=== PATIENT | female | born 1945 | race Caucasian/White ===

== ENCOUNTER 2020-08-31 19:52 | Emergency (ER) | payer MEDICARE, SELFPAY ==
[2020-08-31 20:21] VITALS: BP 157/97; PULSE 95; RESP 17; TEMP 36.8; O2SAT 98; BMI 21.6
--- NOTE | 2020-08-31 20:43 | XR_ITS ---
WS: [id number] Right shoulder, 3 views, 08/31/2020 Clinical Data: fall Comparison: None. Findings: No fractures or dislocations are seen. The AC joint is normal. The adjacent right clavicle, right sca pula and ribs are normal. The soft tissues are unremarkable. XR/XR shoulder RT min 2V* [id number] Impression: Negative right shoulder.
--- NOTE | 2020-08-31 20:43 | XR_ITS ---
WS: [id number] Right knee, 3 views, 08/31/2020 Clinical Data: fall Comparison: None. Findings: No fractures or dislocations are seen. There is narrowing of the lateral joint compartment with later al subluxation of the tibia relative to the femur. The patella is intact. The soft tissues are unrema rkable. XR/XR knee RT 3V* [id number] Impression: Osteoarthritis with narrowing and subluxation of the lateral joint compartment.
--- NOTE | 2020-08-31 21:20 | ED_ITS ---
HPI - Extremity Problem General: Chief complaint: Extremity Injury, Lower Stated complaint: FALL - INJURY TO RLE Time Seen by Provider: 08/31/20 21:18 History of Present Illness: HPI Narrative: Patient is a 74-year-old female comes to the ED with right knee and shoulder pain after fall. Patient says she was walking outside and her foot got caught between the storm door causing her to to fall. Patient says she went down and hit her right knee to the ground. She is also complaining of having some very mild right shoulder pain. She says her right knee is a little swollen and bearing weight causes some pain. Denies any head trauma or loss of consciousness. Associated symptoms: Deny chest pain, fever(s) or rash Review of Systems Const: Denies: fever(s), chills or fatigue Eyes: Denies: change in vision or eye discomfort ENMT: Denies: throat pain, odynophagia, nasal discharge or nasal congestion Card: Denies: chest pain, palpitations, edema, swelling of feet/ankles, dyspnea on exertion or orthopnea Resp: Denies: dyspnea, productive cough or non-productive cough GI: Denies: abdominal pain, nausea, vomiting, diarrhea, constipation or hematochezia : Denies: flank pain, dysuria or hematuria Musc: Reports: extremity pain (right knee) and extremity swelling (right knee); Denies: neck pain or back pain Skin/Breast: Denies: rash or new lesions Neuro: Denies: headache(s), numbness in extremities or weakness in extremities Physical Exam Const: COMMON NORMALS: no acute distress, patient oriented x3 and alert GENERAL APPEARANCE: cooperative and comfortable HENMT: COMMON NORMALS: normocephalic HEAD & SCALP: normocephalic MOUTH: Normal oral and palatal mucosa present THROAT: posterior oropharynx normal an d uvula midline Eye: COMMON NORMALS: Equal, round and reactive pupils present PUPIL: Yes Equal, round and reactive pupils present Neck/C-Spine: COMMON NORMALS: supple Resp: COMMON NORMALS: normal respiratory effort, No retractions, No use of accessory muscles and clear to auscultation bilaterally AUSCULTATION: clear to auscultation bilaterally Cardio: COMMON NORMALS: regular rate, regular rhythm, S1 normal heart sound present, S2 normal heart sound present, No gallops present (Cardio), No clicks present (Cardio), No murmurs present (Cardio) and Peripheral pulses 2+ throughout RATE: regular rate RHYTHM: regular rhythm HEART SOUNDS: S1 normal heart sound present and S2 normal heart sound present PERIPHERAL PULSES: Peripheral pulses 2+ throughout GI: COMMON NORMALS: Normal to inspection, nondistended, normoactive bowel sounds present, Soft to palpation, non-tender and no masses PALPATION: Yes Soft to palpation : COMMON NORMALS: Yes no CVA tenderness BLADDER/KIDNEY EXAM: Yes no CVA tenderness Back/Pelvis: COMMON NORMALS: no CVA tenderness Extremity: NARRATIVE EXTREMITY EXAM: Right knee-Patient has some mild edema on right knee. No ecchymosis or deformity seen. Right knee is nontender to palpation. Neurovascular intact and range of motion full. Right shoulder?no visible deformity or edema or ecchymosis seen. Right shoulder was not tender to palpation. Neurovascular tact distally. Range of motion full. Neuro: COMMON NORMALS: patient oriented x3 and moves all extremities SENSORIUM/ORIENTATION: Yes alert Skin: COMMON NORMALS: no rashes or lesions noted GENERAL SKIN EXAM: no rashes or lesions noted and dry skin Course Vital Signs: Vital signs: Vital Signs Temperature 98.2 F 08/31/20 20:21 Pulse Rate 88 08/31/20 22:05 Respiratory Rate 22 H 08/31/20 22:05 Blood Pressure 148/91 08/31/20 22:05 Pulse Oximetry 97 08/31/20 22:05 MDM - Extremity (Nontraumatic) MDM Narrative: Medical decision making narrative: Patient is a 74-year-old female comes to the ED with right shoulder and right knee pain after fall. Denies any head trauma or loss of consciousness. Most of patient's pain is on the right knee and she has swelling but no ecchymosis or deformity seen. Right shoulder is normal and no tenderness upon palpation. X-ray of right knee show no acute fractures or findings and right shoulder x-ray showed no acute fracture or findings. Patient was discharged and offered crutches but she refused them. Rest, ice and elevate right leg. Take ibuprofen for pain. Return to ED precautions given. Follow-up with PCP in 7 to 10 days. Patient understood and agree with plan. Imaging Data^: Xray Ortho: Attestation: I personally reviewed and interpreted this imaging study as follows: My impression: Right shoulder x-ray?no acute fractures or findings. Right knee x-ray?no acute fractures or findings. Discharge Plan Discharge Patient Disposition: Home Clinical Impression: Contusion Qualifiers: Encounter type: initial encounter Contusion area: knee Laterality: right Qualified Code(s): S80.01XA - Contusion of right knee, initial encounter Condition: Stable Discharge Orders: Discharge Order (Routine); Ordered 08/31/20 Ordered By: Geovanny Carias Referrals: Hossein Beach Jr, MD [Primary Care Provider] - Discharge Diet: Regular Discharge Activity: Increase activity as tolerated and Limit activity as instructed Patient Instructions: Contusion, Knee Pain (ED) Activity Restrictions/Additional Instructions: Follow-up with medical provider as directed in 7 to 10 days. Rest, ice and elevate right leg. Limit weightbearing for the next 2 days then advance as tolerated. Take ibuprofen or Tylenol for pain. Return to the ER or your medical provider if condition worsens. Please read and understand discharge instructions. If any questions, please ask. Discharge Date/Time: 08/31/20 22:21 Coding Level of Care Code ED Information Technology Data Analyst for [employer] Fwd Exam Comprehensive
[2020-08-31 22:05] VITALS: BP 148/91; PULSE 88; RESP 22; O2SAT 97
== END 2020-08-31 22:21 | disposition home or self-care (01) ==
PROVIDERS: Emergency Provider Physician Assistant; Family Provider Family Medicine; PCP Family Medicine
DX: S80.01XA Contusion of right knee, initial encounter (principal); W01.0XXA Fall on same level from slipping, tripping and stumbling without subsequent striking against object, initial encounter
CPT/HCPCS: 12345; 73030; 73562; 99281; 99283

== ENCOUNTER 2020-09-14 11:08 | Emergency (ER) | payer MEDICARE, SELFPAY ==
[2020-09-14] VITALS (13 sets, daily range): BP systolic 74–150; BP diastolic 49–122; PULSE 102–132; RESP 15–34; TEMP 36.3; O2SAT 80–99; BMI 24.9
--- NOTE | 2020-09-14 11:09 | CT_ITS ---
WS: [id number] CT HEAD NONCONTRAST HISTORY: Syncope and collapse. Loss of consciousness. TECHNIQUE: Contiguous axial imaging performed through the brain in 2.5 mm imaging. Bone and soft tiss ue windows. Sagittal and coronal reformats reviewed. All CT scans at [facility] use at le ast one of these dose optimization techniques: automated exposure control; mA and/or kV adjustment pe r patient size (includes targeted exams where dose is matched to clinical indication); or iterative r econstruction. DLP: 966.04 mGy-cm. COMPARISON: 09/11/2016 No acute intracranial hemorrhage, midline shift or mass effect. Very mild atrophy and chronic ischemic changes in the white matter. No prior infarct or loss of the g ray-white matter differentiation. Ventricles: Normal size with no hydrocephalus. There is extensive calcification in the intracranial carotid arteries and also the vertebral arteries . Paranasal sinuses: As visualized are clear. Mastoid air cells: Well pneumatized. Calvarium and scalp: Skull is intact with no soft tissue edema or swelling. CT/CT head wo con* [id number] IMPRESSION: 1. No acute intracranial hemorrhage or edema. 2. Mild atrophy and chronic ischemic disease. Notified Jermaine Clemons MD MSM at 09/14/2020 11:31 AM.
--- NOTE | 2020-09-14 11:23 | XR_ITS ---
WS: [id number] Exam: XR chest 1V portable [id number] Date/Time of Exam: 09/14/2020 11:27 AM Reason For Exam: syncope Comparison 08/09/2017. The lungs are fully expanded. A rounded soft tissue density is seen in the region of the left lower l obe that may represent infiltrate, atelectasis or a pulmonary nodule. The right lung is clear. Mild cardiac enlargement. No pleural effusions. The mediastinum and bony thorax are unremarkable. Recommendations: Follow-up with a detailed PA and lateral chest x-ray would be helpful for further ev aluation. XR/XR chest 1V portable [id number] IMPRESSION: 1. Rounded soft tissue density seen in the left base that may represent a nodul e, infiltrate or atelectasis. 2. Mild cardiac enlargement.
--- NOTE | 2020-09-14 11:23 | ECG_ITS ---
[facility] Test Date: 2020-09-14 Pat Name: Radha Martinez Department: Room: Gender: Female [employer]: : 1945 Requested By: Jermaine Clemons I Order Number: [id number] Reading MD: Measurements Intervals [place] Rate: 100 P: 33 NH: 138 QRS: 19 QRSD: 84 T: -3 QT: 364 QTc: 470 Interpretive Statements SINUS TACHYCARDIA WITH FREQUENT VENTRICULAR PREMATURE COMPLEXES LOW QRS VOLTAGE IN PRECORDIAL LEADS [QRS DEFLECTION < 1.0 mV IN CHEST LEADS] POSSIBLE RIGHT VENTRICULAR CONDUCTION DELAY [RSR (QR) IN V1/V2] ABNORMAL RHYTHM ECG No previous ECG available for comparison [email or web address]
--- NOTE | 2020-09-14 11:33 | PC.NURSE ---
Pt was 82% on room air, placed on 2LNC by Dr Clemons. Pt increased to 4L at 1128. Pt still maintaining 86% on 4LNC, increased to 6LNC and RT called for hi-flow.
--- NOTE | 2020-09-14 11:35 | PC.NURSE ---
Addenda to triage, pt was greeted at CT by nursing and Dr Clemons.
[2020-09-14] MEDS: sodium chloride 0.9% 1,000 ML 999 ML IV (11:36)
--- NOTE | 2020-09-14 11:42 | W.ED.SYNCOPE ---
HPI - Syncope General: Chief Complaint: Syncope Stated Complaint: ALOC Time Seen by Provider: 09/14/20 11:23 Source: patient and EMS Mode of arrival: EMS Limitations: altered mental status History of Present Illness: HPI narrative: Patient is a 75-year-old female patient was brought in with concerns of syncopal episode. The patient is a poor historian but according to EMS she has had a total of about 5 syncopal episodes, 1 of which was when she was having a bowel movement. She was also hypotensive throughout the ride with EMS despite receiving 1 L of normal saline. Blood pressure was in the 80s systolic. The patient denies any pain including chest pain, she denies dizziness, she denies headache, she denies difficulty breathing, denies abdominal pain or diarrhea. MD complaint: loss of consciousness Onset (ago): hour(s) (2) -: second(s) Description of event: other (right hemiparesis during syncopal episode) Prodromal symptoms: none Witnessed: Yes - by EMS Context: at rest and other (and during bowel movement) Injuries sustained associated with event: none Associated symptoms: Deny abdominal pain, chest pain, fever(s), headache(s), lightheadedness, nausea, short of breath, vertigo or weakness Treatments prior to arrival: IV fluids and other (oxygen) Review of Systems General: Reports: 10 or more systems reviewed and unremarkable except in HPI and below Const: Denies: fever(s) Eyes: Denies: change in vision or blurry vision ENMT: Denies: throat pain, enlarged tonsils, odynophagia, hoarseness, mouth pain or swelling of lips/tongue Card: Denies: chest pain or lightheadedness Resp: Denies: dyspnea, productive cough or non-productive cough GI: Denies: abdominal pain or nausea : Denies: flank pain, difficulty voiding, dysuria, urinary frequency, urinary urgency or urinary hesitancy Musc: Denies: neck pain, back pain or extremity swelling Skin/Breast: Denies: rash, pruritus or erythema Neuro: Denies: headache(s) or vertigo Endo: Denies: polyuria, polydipsia or tired all the time Physical Exam Const: COMMON NORMALS: no acute distress, average body habitus, patient oriented x3, no limitations, healthy appearing, alert and well nourished HENMT: COMMON NORMALS: normocephalic, atraumatic and moist oral mucous membranes HEAD & SCALP: normocephalic and atraumatic Eye: COMMON NORMALS: Equal, round and reactive pupils present, EOMs intact bilaterally, conjunctivae normal and no scleral icterus CONJUNCTIVA: Yes conjunctivae normal PUPIL: Yes Equal, round and reactive pupils present Neck/C-Spine: COMMON NORMALS: no meningeal signs and no JVD Resp: COMMON NORMALS: normal respiratory effort, No retractions, No use of accessory muscles, clear to auscultation bilaterally and percussion normal AUSCULTATION: clear to auscultation bilaterally PERCUSSION: percussion normal Cardio: COMMON NORMALS: no JVD, regular rhythm, S1 normal heart sound present, S2 normal heart sound present, No gallops present (Cardio), No clicks present (Cardio), No murmurs present (Cardio), No rub (Cardio) and Peripheral pulses 2+ throughout RATE: tachycardic RHYTHM: regular rhythm HEART SOUNDS: S1 normal heart sound present and S2 normal heart sound present PERIPHERAL PULSES: Peripheral pulses 2+ throughout GI: COMMON NORMALS: Normal to inspection, nondistended, normoactive bowel sounds present, Soft to palpation, non-tender, No hepatosplenomegaly present, no masses and no bruits PALPATION: Yes Soft to palpation and Yes No hepatosplenomegaly present Extremity: COMMON NORMALS: normal to inspection, full ROM, capillary refill normal and no calf tenderness GENERAL: Yes edema (Right greater than left, 2+ on the right, 1+ on the left.) Neuro: COMMON NORMALS: patient oriented x3 SENSORIUM/ORIENTATION: Yes alert MENINGEAL SIGNS: Yes no meningeal signs Skin: COMMON NORMALS: no rashes or lesions noted, no wounds, turgor normal, no jaundice, no petechiae and no mottling GENERAL SKIN EXAM: no rashes or lesions noted and turgor normal Course Reevaluation(s): Reevaluation #1: Discussed her lab and imaging findings with her. Explained that she has massive pulmonary embolism with right heart strain. Explained that because she is hypotensive and hypoxic and evidence of right heart strain with a massive PE she is classified as an unstable PE and will require TPA as well as possible thrombectomy. Explained my conversation with the business development agent at [facility] and that she would likely not get thrombectomy until tomorrow. Discussed contraindications to TPA and the patient denies any contraindications based on the questions that I asked her. She agrees to thrombolysis with TPA. Time: 16:35 Consultations: Consultation #1: Discussed with Dr. Rodrigues, business development agent at [facility] in [place]. She kindly accepted the patient to her service Time: 16:25 Vital Signs: Vital signs: Vital Signs Temperature 97.4 F L 09/14/20 11:20 Pulse Rate 132 H 09/14/20 17:42 Respiratory Rate 19 H 09/14/20 17:42 Blood Pressure 104/66 09/14/20 17:42 Pulse Oximetry 95 09/14/20 17:42 MDM - Syncope MDM Narrative: Medical decision making narrative: Unfortunate 74-year-old female patient presented to the emergency department with multiple syncopal episodes. Evaluation in the emergency department showed that the patient had obstructive shock secondary to massive pulmonary emboli in both lungs. She had significant right heart strain with a critically elevated 2-hour troponin delta. The patient was pretty sick, hypotensive and hypoxic and required oxygen supplementation as well as vasopressors. Because of the severity of her illness and the fact that she was unstable she was given TPA for thrombolysis of the PE. She was transferred to [facility] for interventional radiology for thrombectomy. I discussed risks and benefits of TPA with the patient and explained that the benefits outweigh the risk in her situation. She voiced understanding and agreed to be given TPA Medical Records: Attestation: I reviewed the patient's medical records. Lab Data: Attestation: I reviewed the patient's lab results. Labs: Lab Results 09/14/20 09/14/20 09/14/20 Range/Units 11:38 12:05 12:05 WBC 10.9 H (4.0-10.0) 10^3/ uL RBC 3.44 L (4.1-5.3) 10^6/u L Hgb 10.5 L (11.5-15.3) g/dL Hct 33.4 L (37.0-47.0) % MCV 97.1 (81-99) fL MCH 30.5 (28.0-34.0) pg MCHC 31.4 (30.0-36.0) g/dL RDW 12.2 (12.1-15.1) % Plt Count 284 (130-400) 10^3/c mm MPV 9.2 (7.4-10.4) fL Neut % (Auto) 83.2 % Lymph % (Auto) 10.3 % Owsley % (Auto) 5.2 % Eos % (Auto) 0.5 % Baso % (Auto) 0.2 % Neut # (Auto) 9.07 H (1.8-7.7) 10^3/u L Lymph # (Auto) 1.1 (0.8-4.8) 10^3/u L Owsley # (Auto) 0.6 (0.2-0.9) 10^3/u L Eos # (Auto) 0.1 (0.0-0.8) 10^3/u L Baso # (Auto) 0.0 (0.0-0.1) 10^3/u L Nucleated RBC % (a uto) 0 % Nucleated RBCs # 0.0 /100WBC PT 14.70 (12.1-14.9) SECO NDS INR 1.11 (0.8-1.2) Fibrinogen 415 (174-498) mg/dL D-Dimer >= 20.00 H (0-0.59) ug/mIFE U Specimen Type Arterial Sample Site Radial, right ABG pH 7.39 (7.35-7.45) ABG pCO2 37.0 (35-45) mmHg ABG pO2 64.5 L (80.0-100.0) mmH g ABG HCO3 22.3 (22-26) mmol/L ABG Base Excess -2.3 L (-2.0-2.0) mmol/ L Keanu Test Pos Hematocrit 33.5 L (37-47) % O2 Delivery Device Nc O2 Liters/Min 6.0 % FiO2 44.0 % Backup Administrator ID Ed Sodium (136-145) mmol/L Potassium (3.5-5.1) mmol/L Chloride (98-107) mmol/L Carbon Dioxide (22-29) mmol/L Anion Gap (5-19) BUN (8-23) mg/dL Creatinine (0.5-0.9) mg/dL GFR Calculation Glucose (65-115) mg/dL Calculated Osmolal ity (285-295) mOsm/k g Lactic Acid (0.5-2.2) mmol/L Calcium (8.5-10.5) mg/dL Total Bilirubin (0.15-1.2) mg/dL AST (0-32) U/L ALT (0-33) U/L Alkaline Phosphata se (35-105) IU/L Troponin T Baselin e (0-10) ng/L Troponin T 120 Min venetie ira (0-10) ng/L Delta Troponin T (0-10) ABS# Troponin T Hi Sens 6Hr Troponin T Hi Sens 6Hr Delta C-Reactive Protein (0.0-4.9) mg/L NT-Pro-B Natriuret Pep (0-125) pg/mL Total Protein (6.6-8.7) g/dL Albumin (3.5-5.2) g/dL Globulin (1.3-4.6) g/dL Influenza Type A A g (Negative) Influenza Type B A g (Negative) SARS-CoV-2 Ag (Rap id) (Negative) 09/14/20 09/14/20 09/14/20 Range/Units 12:05 12:05 12:05 WBC (4.0-10.0) 10^3/ uL RBC (4.1-5.3) 10^6/u L Hgb (11.5-15.3) g/dL Hct (37.0-47.0) % MCV (81-99) fL MCH (28.0-34.0) pg MCHC (30.0-36.0) g/dL RDW (12.1-15.1) % Plt Count (130-400) 10^3/c mm MPV (7.4-10.4) fL Neut % (Auto) % Lymph % (Auto) % Owsley % (Auto) % Eos % (Auto) % Baso % (Auto) % Neut # (Auto) (1.8-7.7) 10^3/u L Lymph # (Auto) (0.8-4.8) 10^3/u L Owsley # (Auto) (0.2-0.9) 10^3/u L Eos # (Auto) (0.0-0.8) 10^3/u L Baso # (Auto) (0.0-0.1) 10^3/u L Nucleated RBC % (a uto) % Nucleated RBCs # /100WBC PT (12.1-14.9) SECO NDS INR (0.8-1.2) Fibrinogen (174-498) mg/dL D-Dimer (0-0.59) ug/mIFE U Specimen Type Sample Site ABG pH (7.35-7.45) ABG pCO2 (35-45) mmHg ABG pO2 (80.0-100.0) mmH g ABG HCO3 (22-26) mmol/L ABG Base Excess (-2.0-2.0) mmol/ L Keanu Test Hematocrit (37-47) % O2 Delivery Device O2 Liters/Min % FiO2 % Backup Administrator ID Sodium 139 (136-145) mmol/L Potassium 3.3 L (3.5-5.1) mmol/L Chloride 105 (98-107) mmol/L Carbon Dioxide 25 (22-29) mmol/L Anion Gap 12.3 (5-19) BUN 17 (8-23) mg/dL Creatinine 0.5 (0.5-0.9) mg/dL GFR Calculation Not Reportable Glucose 148 H (65-115) mg/dL Calculated Osmolal ity 292 (285-295) mOsm/k g Lactic Acid 1.9 (0.5-2.2) mmol/L Calcium 8.0 L (8.5-10.5) mg/dL Total Bilirubin 0.3 (0.15-1.2) mg/dL AST 159 H (0-32) U/L ALT 76 H (0-33) U/L Alkaline Phosphata se 158 H (35-105) IU/L Troponin T Baselin e 94 H (0-10) ng/L Troponin T 120 Min [place] (0-10) ng/L Delta Troponin T (0-10) ABS# Troponin T Hi Sens 6Hr Troponin T Hi Sens 6Hr Delta C-Reactive Protein 36.6 H (0.0-4.9) mg/L NT-Pro-B Natriuret Pep 586 H (0-125) pg/mL Total Protein 5.6 L (6.6-8.7) g/dL Albumin 3.1 L (3.5-5.2) g/dL Globulin 2.5 (1.3-4.6) g/dL Influenza Type A A g (Negative) Influenza Type B A g (Negative) SARS-CoV-2 Ag (Rap id) (Negative) 09/14/20 09/14/20 09/14/20 Range/Units 12:05 12:05 13:55 WBC (4.0-10.0) 10^3/ uL RBC (4.1-5.3) 10^6/u L Hgb (11.5-15.3) g/dL Hct (37.0-47.0) % MCV (81-99) fL MCH (28.0-34.0) pg MCHC (30.0-36.0) g/dL RDW (12.1-15.1) % Plt Count (130-400) 10^3/c mm MPV (7.4-10.4) fL Neut % (Auto) % Lymph % (Auto) % Owsley % (Auto) % Eos % (Auto) % Baso % (Auto) % Neut # (Auto) (1.8-7.7) 10^3/u L Lymph # (Auto) (0.8-4.8) 10^3/u L Owsley # (Auto) (0.2-0.9) 10^3/u L Eos # (Auto) (0.0-0.8) 10^3/u L Baso # (Auto) (0.0-0.1) 10^3/u L Nucleated RBC % (a uto) % Nucleated RBCs # /100WBC PT (12.1-14.9) SECO NDS INR (0.8-1.2) Fibrinogen (174-498) mg/dL D-Dimer (0-0.59) ug/mIFE U Specimen Type Sample Site ABG pH (7.35-7.45) ABG pCO2 (35-45) mmHg ABG pO2 (80.0-100.0) mmH g ABG HCO3 (22-26) mmol/L ABG Base Excess (-2.0-2.0) mmol/ L Keanu Test Hematocrit (37-47) % O2 Delivery Device O2 Liters/Min % FiO2 % Backup Administrator ID Sodium (136-145) mmol/L Potassium (3.5-5.1) mmol/L Chloride (98-107) mmol/L Carbon Dioxide (22-29) mmol/L Anion Gap (5-19) BUN (8-23) mg/dL Creatinine (0.5-0.9) mg/dL GFR Calculation Glucose (65-115) mg/dL Calculated Osmolal ity (285-295) mOsm/k g Lactic Acid (0.5-2.2) mmol/L Calcium (8.5-10.5) mg/dL Total Bilirubin (0.15-1.2) mg/dL AST (0-32) U/L ALT (0-33) U/L Alkaline Phosphata se (35-105) IU/L Troponin T Baselin e (0-10) ng/L Troponin T 120 Min ven[place]ie ira 229.2 H (0-10) ng/L Delta Troponin T 135.2 H* (0-10) ABS# Troponin T Hi Sens 6Hr Troponin T Hi Sens 6Hr Delta C-Reactive Protein (0.0-4.9) mg/L NT-Pro-B Natriuret Pep (0-125) pg/mL Total Protein (6.6-8.7) g/dL Albumin (3.5-5.2) g/dL Globulin (1.3-4.6) g/dL Influenza Type A A g Negative (Negative) Influenza Type B A g Negative (Negative) SARS-CoV-2 Ag (Rap id) Negative (Negative) 09/14/20 Range/Units 18:05 WBC (4.0-10.0) 10^3/ uL RBC (4.1-5.3) 10^6/u L Hgb (11.5-15.3) g/dL Hct (37.0-47.0) % MCV (81-99) fL MCH (28.0-34.0) pg MCHC (30.0-36.0) g/dL RDW (12.1-15.1) % Plt Count (130-400) 10^3/c mm MPV (7.4-10.4) fL Neut % (Auto) % Lymph % (Auto) % Owsley % (Auto) % Eos % (Auto) % Baso % (Auto) % Neut # (Auto) (1.8-7.7) 10^3/u L Lymph # (Auto) (0.8-4.8) 10^3/u L Owsley # (Auto) (0.2-0.9) 10^3/u L Eos # (Auto) (0.0-0.8) 10^3/u L Baso # (Auto) (0.0-0.1) 10^3/u L Nucleated RBC % (a uto) % Nucleated RBCs # /100WBC PT (12.1-14.9) SECO NDS INR (0.8-1.2) Fibrinogen (174-498) mg/dL D-Dimer (0-0.59) ug/mIFE U Specimen Type Sample Site ABG pH (7.35-7.45) ABG pCO2 (35-45) mmHg ABG pO2 (80.0-100.0) mmH g ABG HCO3 (22-26) mmol/L ABG Base Excess (-2.0-2.0) mmol/ L Keanu Test Hematocrit (37-47) % O2 Delivery Device O2 Liters/Min % FiO2 % Backup Administrator ID Sodium (136-145) mmol/L Potassium (3.5-5.1) mmol/L Chloride (98-107) mmol/L Carbon Dioxide (22-29) mmol/L Anion Gap (5-19) BUN (8-23) mg/dL Creatinine (0.5-0.9) mg/dL GFR Calculation Glucose (65-115) mg/dL Calculated Osmolal ity (285-295) mOsm/k g Lactic Acid (0.5-2.2) mmol/L Calcium (8.5-10.5) mg/dL Total Bilirubin (0.15-1.2) mg/dL AST (0-32) U/L ALT (0-33) U/L Alkaline Phosphata se (35-105) IU/L Troponin T Baselin e (0-10) ng/L Troponin T 120 Min [place] (0-10) ng/L Delta Troponin T (0-10) ABS# Troponin T Hi Sens 6Hr Cancelled Troponin T Hi Sens 6Hr Delta Cancelled C-Reactive Protein (0.0-4.9) mg/L NT-Pro-B Natriuret Pep (0-125) pg/mL Total Protein (6.6-8.7) g/dL Albumin (3.5-5.2) g/dL Globulin (1.3-4.6) g/dL Influenza Type A A g (Negative) Influenza Type B A g (Negative) SARS-CoV-2 Ag (Rap id) (Negative) Imaging Data^: CT Head: Attestation: I personally reviewed and interpreted this imaging study as follows: Radiologist's impression: [place] [address] CT Scan Report Signed Patient: Radha Martinez AUnit #: [id number] : 7Acct#:[id number] Age/Sex: 74 / FADM Date: 09/14/20 Loc: ERRoom/Bed: Attending Dr: Ordering Provider/Ordering MD: Jermaine Clemons MD, [facility] [place] [facility] Date of Service: 09/14/20 Procedure(s): CT head wo con* [id number] Accession Number(s): [id number] Report Number: [id number] WS: [id number] CT HEAD NONCONTRAST HISTORY: Syncope and collapse. Loss of consciousness. TECHNIQUE: Contiguous axial imaging performed through the brain in 2.5 mm imaging. Bone and soft tissue windows. Sagittal and coronal reformats reviewed. All CT scans at [facility] use at least one of these dose optimization techniques: automated exposure control; mA and/or kV adjustment per patient size (includes targeted exams where dose is matched to clinical indication); or iterative reconstruction. DLP: 966.04 mGy-cm. COMPARISON: 09/11/2016 No acute intracranial hemorrhage, midline shift or mass effect. Very mild atrophy and chronic ischemic changes in the white matter. No prior infarct or loss of the victor-white matter differentiation. Ventricles: Normal size with no hydrocephalus. There is extensive calcification in the intracranial carotid arteries and also the vertebral arteries. Paranasal sinuses: As visualized are clear. Mastoid air cells: Well pneumatized. Calvarium and scalp: Skull is intact with no soft tissue edema or swelling. CT/CT head wo con* [id number] IMPRESSION: 1. No acute intracranial hemorrhage or edema. 2. Mild atrophy and chronic ischemic disease. Notified Jermaine Clemons MD [facility] at 09/14/2020 11:31 AM. Dictated By:Eri Newton DO Signed By:Eri Newton DOSigned Date/Time:09/14/20 1132 DD/ 1130 CXR: Attestation: I personally reviewed and interpreted this imaging study as follows: Radiologist's impression: [facility] [address] [place] [address] XRay Report Signed Patient: Radha Martinez AUnit #: [id number] : [id number]#:[id number] Age/Sex: 74 / FADM Date: 09/14/20 Loc: ERRoom/Bed: Attending Dr: Ordering Provider/Ordering MD: Jermaine Clemons MD, [facility] [place] [facility] Date of Service: 09/14/20 Procedure(s): XR chest 1V portable [id number] Accession Number(s): [id number] Report Number: [id number] WS: [id number] Exam: XR chest 1V portable [id number] Date/Time of Exam: 09/14/2020 11:27 AM Reason For Exam: syncope Comparison 08/09/2017. The lungs are fully expanded. A rounded soft tissue density is seen in the region of the left lower lobe that may represent infiltrate, atelectasis or a pulmonary nodule. The right lung is clear. Mild cardiac enlargement. No pleural effusions. The mediastinum and bony thorax are unremarkable. Recommendations: Follow-up with a detailed PA and lateral chest x-ray would be helpful for further evaluation. XR/XR chest 1V portable [id number] IMPRESSION: 1. Rounded soft tissue density seen in the left base that may represent a nodule, infiltrate or atelectasis. 2. Mild cardiac enlargement. Dictated By:Alejandro Soriano DO Signed By:Vanna Luna Date/Time:09/14/20 1159 DD/ 1147 CTA Chest: Attestation: I personally reviewed and interpreted this imaging study as follows: Radiologist's impression: [facility] [address] [place] [address] CT Scan Report Signed Patient: Radha Martinez AUnit #: [id number] : [id number]#:[id number] Age/Sex: 74 / FADM Date: 09/14/20 Loc: ERRoom/Bed: Attending Dr: Ordering Provider/Ordering MD: Jermaine Clemons MD, [facility] [place] [facility] Date of Service: 09/14/20 Procedure(s): CT angio chest PE protcl [id number] Accession Number(s): [id number] Report Number: [id number] WS: [id number] CT CHEST ANGIOGRAPHY WITH REFORMATS HISTORY: Hypoxia TECHNIQUE: Contiguous axial images are obtained through the chest during arterial injection of intravenous contrast. Images are reconstructed to evaluate the pulmonary arteries. MIP imaging also reviewed. All CT scans at [facility] use at least one of these dose optimization techniques: automated exposure control; mA and/or kV adjustment per patient size (includes targeted exams where dose is matched to clinical indication); or iterative reconstruction. CONTRAST: Omnipaque 350; 95 mL IV. DLP: 509.25 mGy.cm COMPARISON: 08/09/2017 Very good opacification of the pulmonary arteries. There are extensive pulmonary emboli. Emboli begin in the RIGHT main pulmonary artery and the proximal LEFT lower lobe pulmonary artery. There is extensive embolic burden extending into the lower lobes bilaterally. Additional emboli in the upper lobes bilaterally. Thoracic aorta is mildly ectatic. Heart size is enlarged. There is RIGHT heart strain. RIGHT heart is enlarged with tricuspid regurgitation. Emphysema with a few scattered areas of groundglass attenuation. Atelectasis at the lung bases and small bilateral effusions. Small but numerous mediastinal and hilar lymph nodes. Severe increase in the thoracic kyphosis. Osteopenia. Prior healed fractures in the mid lateral RIGHT thorax. CT/CT angio chest PE protcl [id number] IMPRESSION: 1. Significant bilateral pulmonary embolic burden. 2. Chronic emphysema. 3. Marked RIGHT heart strain with tricuspid regurgitation into hepatic veins. 4. Small bilateral pleural effusions and bibasilar areas of atelectasis. Notified Jermaine Clemons MD [facility] [place] [facility] at 09/14/2020 4:09 PM. Dictated By:Eri Newton DO Signed By:Eri Newton DOSigned Date/Time:09/14/20 1618 DD/ 1605 EKG Data^: EKG 1: Attestation: I personally reviewed and interpreted this EKG as follows: EKG interpretation date: 09/14/20 EKG interpretation time: 11:32 Prior EKG tracings: not available for review Interpretation: Sinus tachycardia with PVCs. Heart rate [address] changes. EKG 2: Attestation: I personally reviewed and interpreted this EKG as follows: EKG interpretation date: 09/14/20 EKG interpretation time: 14:09 Prior EKG tracings: available for review Ischemic changes: t wave inversions Interpretation: Sinus tachycardia Heart rate 121 bpm. Incomplete right bundle branch block. T wave inversion in V3 V4 V5 V6 EKG 3: Attestation: I personally reviewed and interpreted this EKG as follows: EKG interpretation date: 09/14/20 EKG interpretation time: 16:56 Ischemic changes: t wave inversions Interpretation: Sinus tachycardia with short IL interval. Heart rate 134 bpm. TWI inversion V3 and V4 Critical Care Time Critical Care Time: Critical Care Time: Yes Total Critical Care Time: 120 Attestation: This case had a high probability of a clinically significant, sudden, or life threatening deterioration of this patient's condition which required my full and direct attention, intervention and personal management. 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 She also had significant right heart strain. Discharge Plan Discharge Patient Disposition: Xfer Short-Term Hosp Clinical Impression: Acute massive pulmonary embolism, Shock, Elevated troponin Condition: Stable Discharge Orders: Transfer Out of Facility (Order); Ordered 09/14/20 Ordered By: Jermaine Clemons Referrals: Hossein Beach Jr, MD [Primary Care Provider] - Discharge Date/Time: 09/14/20 18:00 Coding Level of Care Code ED Icing Maker for Chg Fwd Exam Comprehensive
[2020-09-14 11:49] LABS: ABG PH Result 7.39 (7.35-7.45); Arterial Blood Gas Hematocrit 33.5 % (37-47); Base Excess ABG -2.3 mmol/L (-2.0-2.0); Blood Gas Allen Test Pos; Blood Gas Operator Identificat ED; Blood Gas Sample Site Radial, right; Blood Gas Sample Type Arterial; HCO3 ABG 22.3 mmol/L (22-26); Oxygen Device NC; PO2 ABG 64.5 mmHg (80.0-100.0)
[2020-09-14 12:29] LABS: Basophils % 0.2 %; Eosinophils # 0.1 10^3/uL (0.0-0.8); Eosinophils % 0.5 %; Hematocrit 33.4 % (37.0-47.0); Hemoglobin 10.5 g/dL (11.5-15.3); Lymphocytes # 1.1 10^3/uL (0.8-4.8); Lymphocytes % 10.3 %; Mean Corpuscular HGB Conc 31.4 g/dL (30.0-36.0); Mean Corpuscular Hemoglobin 30.5 pg (28.0-34.0); Mean Corpuscular Volume 97.1 fL (81-99); Mean Platelet Volume 9.2 fL (7.4-10.4); Monocytes # 0.6 10^3/uL (0.2-0.9); Monocytes % 5.2 %; Neutrophils # 9.07 10^3/uL (1.8-7.7); Neutrophils % 83.2 %; Nucleated Red Blood Cells % 0 %; Platelet Count 284 10^3/cmm (130-400); Red Blood Count 3.44 10^6/uL (4.1-5.3); Red Cell Distribution Width 12.2 % (12.1-15.1); White Blood Count 10.9 10^3/uL (4.0-10.0)
[2020-09-14 12:39] LABS: Fibrinogen 415 mg/dL (174-498); INR 1.11 (0.8-1.2)
[2020-09-14 12:43] LABS: Lactic Sepsis W/Reflex 1.9 mmol/L (0.5-2.2)
[2020-09-14 12:44] LABS: Troponin(5th) Baseline 94 ng/L (0-10)
[2020-09-14 12:56] LABS: Alanine Aminotransferase 76 U/L (0-33); Albumin Level 3.1 g/dL (3.5-5.2); Alkaline Phosphatase 158 IU/L (35-105); Anion Gap 12.3 (5-19); Aspartate Amino Transferase 159 U/L (0-32); Blood Urea Nitrogen 17 mg/dL (8-23); C Reactive Protein 36.6 mg/L (0.0-4.9); Carbon Dioxide 25 mmol/L (22-29); Chloride 105 mmol/L (98-107); Creatinine Clr Calc Pharmacy 59.3337; D Dimer >= 20.00 ug/mIFEU (0-0.59); Globulin 2.5 g/dL (1.3-4.6); Glucose 148 mg/dL (65-115); NT Pro B Type Natriuretic Pept 586 pg/mL (0-125); Osmolality Calculated 292 mOsm/kg (285-295); Potassium 3.3 mmol/L (3.5-5.1); Sodium 139 mmol/L (136-145); Total Bilirubin 0.3 mg/dL (0.15-1.2); Total Protein 5.6 g/dL (6.6-8.7)
--- NOTE | 2020-09-14 13:00 | CT_ITS ---
WS: [id number] CT CHEST ANGIOGRAPHY WITH REFORMATS HISTORY: Hypoxia TECHNIQUE: Contiguous axial images are obtained through the chest during arterial injection of intrav enous contrast. Images are reconstructed to evaluate the pulmonary arteries. MIP imaging also reviewe d. All CT scans at [facility] use at least one of these dose optimization techniques: aut omated exposure control; mA and/or kV adjustment per patient size (includes targeted exams where dose is matched to clinical indication); or iterative reconstruction. CONTRAST: Omnipaque 350; 95 mL IV. DLP: 509.25 mGy.cm COMPARISON: 08/09/2017 Very good opacification of the pulmonary arteries. There are extensive pulmonary emboli. Emboli begin in the RIGHT main pulmonary artery and the proximal LEFT lower lobe pulmonary artery. There is exten sive embolic burden extending into the lower lobes bilaterally. Additional emboli in the upper lobes bilaterally. Thoracic aorta is mildly ectatic. Heart size is enlarged. There is RIGHT heart strain. RIGHT heart is enlarged with tricuspid regurgitation. Emphysema with a few scattered areas of groundglass attenuation. Atelectasis at the lung bases and sm all bilateral effusions. Small but numerous mediastinal and hilar lymph nodes. Severe increase in the thoracic kyphosis. Osteopenia. Prior healed fractures in the mid lateral RIGHT thorax. CT/CT angio chest PE protcl [id number] IMPRESSION: 1. Significant bilateral pulmonary embolic burden. 2. Chronic emphysema. 3. Marked RIGHT heart strain with tricuspid regurgitation into hepatic veins. 4. Small bilateral pleural effusions and bibasilar areas of atelectasis. Notified Jermaine Clemons MD [facility] at 09/14/2020 4:09 PM.
[2020-09-14 13:01] LABS: SARS Covid-2 Antigen Negative (Negative)
[2020-09-14 13:02] LABS: Influenza A by IFA Negative (Negative); Influenza B by IFA Negative (Negative)
--- NOTE | 2020-09-14 13:23 | ECG_ITS ---
[facility] Test Date: 2020-09-14 Pat Name: Radha Martinez Department: Room: Gender: Female Etl Analyst: : 1945 Requested By: Jermaine Clemons I Order Number: [id number] Reading MD: Measurements Intervals [place] Rate: 121 P: 20 MA: 153 QRS: 18 QRSD: 98 T: -7 QT: 425 QTc: 605 Interpretive Statements SINUS TACHYCARDIA WITH OCCASIONAL ECTOPIC PREMATURE COMPLEXES LOW QRS VOLTAGE IN PRECORDIAL LEADS [QRS DEFLECTION < 1.0 mV IN CHEST LEADS] INCOMPLETE RIGHT BUNDLE BRANCH BLOCK [90+ ms QRS DURATION, TERMINAL R IN V1/V2, 40+ ms S IN I/aVL/V4/V5/V6] POSSIBLE ANTERIOR MYOCARDIAL INFARCTION , OF INDETERMINATE AGE [30 ms Q WAVE IN V3/V4, OR R < 0.2 mV IN V4] MODERATE T-WAVE ABNORMALITY, CONSIDER LATERAL ISCHEMIA [-0.1+ mV T WAVE IN I/aVL/V5/V6] Compared to ECG 09/14/2020 11:32:37 Incomplete right bundle-branch block now present Myocardial infarct finding now present T-wave abnormality now present Possible ischemia now present Ventricular premature complex(es) no longer present [id number]
--- NOTE | 2020-09-14 14:12 | USCV_ITS ---
Radha Martinez Age: 74 Gender: F : 1945 Exam Date: 09/14/2020 16:07 Ordering Phys: Jermaine Clemons MD [facility] [place] Technologist: Aileen Rhoades [place]am Location[place] [facility] [place]: Right leg swelling HISTORY: Lower extremity swelling. PROCEDURES: Venous duplex imaging was performed in only the right lower extremity. The following venous structures were evaluated: common femoral vein, profunda vein, proximal portion of the greater saphenous vein, superficial femoral vein, and the popliteal vein. In addition, the posterior tibial and peroneal trunk were evaluated. FINDINGS: Evidence of acute partial deep vein thrombosis in the right popliteal vein with abnormal flow dynamics. No additional DVT. CONCLUSIONS Acute DVT right popliteal vein. Report called by plate glass installer. Dr. Eri Newton DO (Electronically Signed) Final Date: 14 September 2020 16:29 S
[2020-09-14 14:46] LABS: Troponin 5 2HR 229.2 ng/L (0-10); Troponin 5 2HR Delta 135.2 ABS# (0-10)
[2020-09-14] MEDS: enoxaparin 80 mg/0.8 mL Syringe 60 MG SUBCUT (15:02)
--- NOTE | 2020-09-14 15:09 | PC.NURSE ---
pt was incontinent of stool. nursing staff provided hygiene needs
--- NOTE | 2020-09-14 15:09 | PC.NURSE ---
pt BP was 145/110 so nursing staff paused norepinephrine gtt. Gtt had only been off for 5 minutes and pt states I feel so lightheaded and dizzy . Pt's BP reading at that time 85/64. nursing staff placed pt in supine position and turned norepinephrine gtt back on at 5mcg/min. ed provider notified and in room.
[2020-09-14] MEDS: iohexol 350 mg/mL 100 mL Btl IV (15:42)
--- NOTE | 2020-09-14 17:23 | ECG_ITS ---
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1945 Requested By: Jermaine Clemons I Order Number: [id number] Reading MD: Measurements Intervals [place] Rate: 134 P: 19 CO: 108 QRS: 39 QRSD: 86 T: -16 QT: 331 QTc: 496 Interpretive Statements SINUS TACHYCARDIA WITH SHORT CO INTERVAL LOW QRS VOLTAGE IN PRECORDIAL LEADS [QRS DEFLECTION < 1.0 mV IN CHEST LEADS] POSSIBLE RIGHT VENTRICULAR CONDUCTION DELAY [RSR (QR) IN V1/V2] ST DEVIATION AND MODERATE T-WAVE ABNORMALITY, CONSIDER ANTERIOR ISCHEMIA [-0.1+ mV T WAVE IN V3/V4] Compared to ECG 09/14/2020 14:09:19 Short CO interval now present Incomplete right bundle-branch block no longer present Myocardial infarct finding no longer present T-wave abnormality still present Possible ischemia still present [email or web address]
[2020-09-15 17:43] LABS: Quest SARS-CoV-2 RNA NOT DETECTED (NOT DETECTED)
--- NOTE | 2020-09-16 08:47 | PC.NURSE ---
pt transferred to [facility] so pt was not contacted with COVID 19 results.
== END 2020-09-14 18:00 | disposition short-term general hospital (02) ==
PROVIDERS: Emergency Provider Family Medicine; PCP Family Medicine
DX: I26.99 Other pulmonary embolism without acute cor pulmonale (principal); R57.9 Shock, unspecified; R77.8 Other specified abnormalities of plasma proteins
CPT/HCPCS: 12345; 36415; 36600; 70450; 71045; 71275; 80053; 82803; 83605; 83880; 84484; 85025; 85378; 85384; 85610; 86140; 87426; 87635; 87804; 93005; 93971; 96365; 96366; 96372; 96375; 99284; 99285; J1650; J2997; J7030; Q9967

== ENCOUNTER 2020-11-11 11:49 | Emergency (ER) | payer MEDICARE, SELFPAY ==
[2020-11-11 12:21] VITALS: BP 176/114; PULSE 102; RESP 14; TEMP 36.2; O2SAT 95; BMI 20.7
--- NOTE | 2020-11-11 13:42 | W.ED.BACK ---
HPI - Back Pain/Injury General: Chief Complaint: Back Pain/Injury Stated Complaint: back pain Time Seen by Provider: 11/11/20 13:31 Source: patient Mode of arrival: ambulatory Limitations: no limitations History of Present Illness: HPI Narrative: 75-year-old female patient presents to the emergency department with approximately 1 week onset of low back pain. She reports 3 days after sleeping on a new mattress, she reports pain in her lower back on the right side. States went to urgent care 4 to 5 days ago, received a steroid shot, states pain resolved until yesterday. States pain has presented again, reports taking Tylenol and applying warm moist heat which helps. MD elicited complaint: back pain and back injury (possibly) Pertinent past history: prior back pain and arthritis Onset (ago): day(s) (5-7) Timing: intermittent Pain scale (0-10): 6 Similar Symptoms Previously: Yes Quality: dull, aching and throbbing Location: lumbar spine (rt side) Radiation: none Exacerbating factors: movement and sitting upright Relieving factors: other (rest) Context: other (new mattress) Associated symptoms: Reports no associated symptoms; Deny abdominal pain, chills, dysuria, fever(s), nausea or vomiting Treatments prior to arrival: heat therapy and acetaminophen Work related injury: No Review of Systems General: Reports: 10 or more systems reviewed and unremarkable except in HPI and below Const: Denies: fever(s), chills or diaphoresis Eyes: Denies: blurry vision or eye redness ENMT: Denies: throat pain, dental pain or disequilibrium Card: Denies: chest pain, palpitations or irregular heart rhythm Resp: Denies: dyspnea, productive cough, non-productive cough or wheezing GI: Denies: abdominal pain, nausea or vomiting : Denies: difficulty voiding or dysuria Musc: Reports: back pain; Denies: neck pain, joint pain or joint swelling Skin/Breast: Denies: rash or pruritus Neuro: Denies: headache(s), weakness in extremities or behavioral changes Psych: Denies: anxiety or depression Raffi/Lymph: Denies: easy bruising Physical Exam Const: COMMON NORMALS: no acute distress, patient oriented x3, healthy appearing and alert GENERAL APPEARANCE: cooperative, comfortable and well hydrated ORIENTATION/CONSCIOUSNESS: Yes oriented to person, Yes oriented to place and Yes oriented to time HENMT: COMMON NORMALS: normocephalic, Normal external nose present and moist oral mucous membranes HEAD & SCALP: normocephalic NOSE: Normal external nose present Eye: COMMON NORMALS: Equal, round and reactive pupils present and EOMs intact bilaterally GENERAL EYE: appearance normal, both eyes and all related structures PUPIL: Yes Equal, round and reactive pupils present Neck/C-Spine: COMMON NORMALS: full ROM, no lymphadenopathy and no meningeal signs GENERAL: Yes normal visual inspection and Yes trachea midline CERVICAL SPINE: Yes cervical ROM normal Lymph: LYMPHATIC: no lymphadenopathy noted Chest: COMMONS NORMALS: normal inspection of the chest Resp: COMMON NORMALS: normal respiratory effort and clear to auscultation bilaterally AUSCULTATION: clear to auscultation bilaterally Cardio: COMMON NORMALS: regular rhythm, S1 normal heart sound present and S2 normal heart sound present RHYTHM: regular rhythm HEART SOUNDS: S1 normal heart sound present and S2 normal heart sound present GI: COMMON NORMALS: Soft to palpation and non-tender INSPECTION: Yes normal to inspection PALPATION: Yes Soft to palpation : COMMON NORMALS: Yes no CVA tenderness BLADDER/KIDNEY EXAM: Yes no CVA tenderness Back/Pelvis: COMMON NORMALS: no CVA tenderness, thoracic and lumbar spine normal to inspection and no thoracic nor lumbar tenderness THORACIC SPINE/UPPER BACK: Yes thoracic ROM normal, No paraspinal muscle tenderness and No paraspinal muscle spasm LUMBAR SPINE/LOWER BACK: Yes lumbar ROM normal, No lumbar spinal tenderness, Yes paraspinal muscle tenderness Lumbar paraspinal muscle tenderness: right and Yes straight leg raise positive right (To the right hip, posterior) Straight leg raise positive details right: at 30 degrees SACROILIAC JOINTS: Yes SI joint(s) abnormal SI joint details: tender to palpation (Right) and pain elicited by compression of iliac crest maneuver (Right) SACRUM: no ecchymosis Extremity: COMMON NORMALS: normal to inspection and capillary refill normal Neuro: COMMON NORMALS: patient oriented x3 and no focal motor deficits SENSORIUM/ORIENTATION: Yes alert, Yes oriented to person, Yes oriented to place and Yes oriented to time MENINGEAL SIGNS: Yes no meningeal signs SPEECH: speech normal MOTOR EXAM: 5/5 motor strength present throughout (Muscle strength BLE 5/5) and no tremor noted Psych: COMMON NORMALS: mental status grossly normal, Normal thought process present and cooperative ACTIVITY/MOTOR BEHAVIOR: Yes appropriate eye contact THOUGHT PROCESS: Normal thought process present Skin: COMMON NORMALS: no rashes or lesions noted and turgor normal GENERAL SKIN EXAM: no rashes or lesions noted and turgor normal Course Vital Signs: Vital signs: Vital Signs Temperature 97.2 F L 11/11/20 12:21 Pulse Rate 102 H 11/11/20 12:21 Respiratory Rate 14 11/11/20 12:21 Blood Pressure 179/105 11/11/20 14:47 Pulse Oximetry 95 11/11/20 12:21 MDM - Back Pain/Injury Lab Data: Labs: Lab Results 11/11/20 Range/Units 12:45 Urine Color Straw (Yellow) Urine Appearance Clear (CLEAR) Urine pH 7 (5-7) Ur Specific Gravit y 1.005 (1.005-1.030) Urine Protein Neg (Negative) Urine Glucose (UA) Norm (Normal) Urine Ketones Negative (Negative) Urine Blood Neg (Negative) Urine Nitrate Negative (Negative) Urine Bilirubin Neg (Negative) Urine Urobilinogen Norm (Negative) mg/dL Ur Leukocyte Kathy ase Negative (Negative) Imaging Data^: Xray Ortho: Radiologist's impression: [address] [address] XRay Report Signed Patient: Radha Martinez AUnash #: [id number] : 7Acct#:[id number] Age/Sex: 75 / FADM Date: 11/11/20 [facility] Attending Dr: Ordering Provider/Ordering MD: Rebecca Carrington Date of Service: 11/11/20 Procedure(s): XR lumbar spine 2-3V* [id number] Accession Number(s): [id number] Report Number: [id number] PROCEDURE INFORMATION: Exam: XR Lumbosacral Spine, 2 or 3 Views Exam date and time: 11/11/2020 1:46 PM Age: 75 years old Clinical indication: Low back pain; Prior surgery TECHNIQUE: Imaging protocol: XR of the lumbosacral spine, 2 or 3 views. COMPARISON: CT Chest/Abdomen/Pelvis w IV* 08/08/2017 9:42:15 PM FINDINGS: Bones/joints: Mild scoliosis of the lumbar spine. Diffuse osteopenia noted. Mild degenerative disc narrowing at L5-S1. Intervertebral disc heights are otherwise preserved. Mild degenerative facet joint changes at L4-L5 and L5-S1. Severe L1 compression fracture, which appears chronic. No acute fracture identified. Vertebral body heights are otherwise preserved. Soft tissues: Unremarkable. Vasculature: There is an IVC filter present. XR/XR lumbar spine 2-3V* [id number] IMPRESSION: 1. Severe L1 compression fracture, which appears chronic. This has occurred in the interval since the previous CT study of 08/08/2017. 2. No acute fracture demonstrated. Dictated By:Hiram Shepard MD Signed By:Hiram Shepard MDSigned Date/Time:11/11/201444 DD/ 144 Discharge Plan Discharge Patient Disposition: Home Clinical Impression: Sciatica Qualifiers: Laterality: right Qualified Code(s): M54.31 - Sciatica, right side Compression fracture of L1 vertebra Qualifiers: Encounter type: initial encounter Qualified Code(s): S32.010A - Wedge compression fracture of first lumbar vertebra, initial encounter for closed fracture Condition: Stable Prescriptions: New hydrocodone-acetaminophen 5-325 mg tablet 1 tab PO Q4H PRN (Reason: pain) Qty: 10 RF: 0 No Action carbidopa-levodopa 10-100 mg tablet 1 tab PO ONCE RF: 0 omeprazole 20 mg Capsule,Delayed Release(Dr/Ec) 20 mg PO DAILY RF: 0 hydrochlorothiazide 25 mg tablet 12.5 mg PO DAILY RF: 0 benazepril 40 mg tablet 40 mg PO DAILY RF: 0 Discharge Orders: Discharge ED (Routine); Ordered 11/11/20 Ordered By: Rebecca Carrington Referrals: Hossein Beach Jr, MD [Primary Care Provider] - Discharge Diet: Usual diet Discharge Activity: Limit activity as instructed Patient Instructions: Fractures - Compression, Acute Low Back Pain (ED) Activity Restrictions/Additional Instructions: Continue with warm moist heat Return to the emergency department if you develop increased pain, numbness tingling in the lower extremities with weakness Follow-up with your primary care provider next week Prescription of hydrocodone has been provided, keep in a safe place as medication is controlled and can cause constipation. 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
--- NOTE | 2020-11-11 13:45 | XRR_ITS ---
PROCEDURE INFORMATION: Exam: XR Lumbosacral Spine, 2 or 3 Views Exam date and time: 11/11/2020 1:46 PM Age: 75 years old Clinical indication: Low back pain; Prior surgery TECHNIQUE: Imaging protocol: XR of the lumbosacral spine, 2 or 3 views. COMPARISON: CT Chest/Abdomen/Pelvis w IV* 08/08/2017 9:42:15 PM FINDINGS: Bones/joints: Mild scoliosis of the lumbar spine. Diffuse osteopenia noted. Mild degenerative disc narrowing at L5-S1. Intervertebral disc heights are otherwise preserved. Mild degenerative facet joint changes at L4-L5 and L5-S1. Severe L1 compression fracture, which appears chronic. No acute fracture identified. Vertebral body heights are otherwise preserved. Soft tissues: Unremarkable. Vasculature: There is an IVC filter present. XR/XR lumbar spine 2-3V* [id number] IMPRESSION: 1. Severe L1 compression fracture, which appears chronic. This has occurred in the interval since the previous CT study of 08/08/2017. 2. No acute fracture demonstrated.
[2020-11-11 13:58] LABS: Add Urine Microscopic? NO
[2020-11-11 14:01] LABS: Bilirubin Urine Neg (Negative); Blood Urine Neg (Negative); Glucose Urine UA Norm (Normal); Ketones Urine Negative (Negative); Leukocyte Esterase Urine Negative (Negative); Nitrate Urine Negative (Negative); Protein Urine Neg (Negative); Specific Gravity, Urine 1.005 (1.005-1.030); Urine Appearance Clear (CLEAR); Urine Color Straw (Yellow); Urobilinogen Urine Norm (Negative); pH Urine 7 (5-7)
[2020-11-11] MEDS: predniSONE 20 mg Tablet PO (14:31)
[2020-11-11] MEDS: tizanidine 4 mg Tablet 2 MG PO (14:31)
[2020-11-11 14:47] VITALS: BP 179/105
[2020-11-11] MEDS: HYDROcodone-acetaminophen 5-325 mg Tablet 1 TAB PO (15:28)
== END 2020-11-11 16:02 | disposition home or self-care (01) ==
PROVIDERS: Emergency Provider Nurse Practitioner Family; PCP Family Medicine
DX: M54.31 Sciatica, right side (principal); S32.010A Wedge compression fracture of first lumbar vertebra, initial encounter for closed fracture; X58.XXXA Exposure to other specified factors, initial encounter
CPT/HCPCS: 12345; 72100; 81003; 99281; 99283; J7512; L0460

== ENCOUNTER 2020-11-21 15:19 | Emergency (ER) | payer MEDICARE, SELFPAY ==
[2020-11-21 15:25] VITALS: BP 211/102; PULSE 84; RESP 18; TEMP 36.9; O2SAT 96; BMI 20.9
--- NOTE | 2020-11-21 16:24 | ED_ITS ---
HPI - Back Pain/Injury General: Chief Complaint: Back Pain/Injury Stated Complaint: severe back pain Time Seen by Provider: 11/21/20 16:05 Source: patient and family Mode of arrival: ambulatory Limitations: no limitations History of Present Illness: HPI Narrative: Patient is a 75-year-old female who presents to ED today with a complaint of right-sided lower back pain has been p resent over the past 2 weeks. Patient was initially seen by her PCP on 11/09 and diagnosed with right-sided sciatica. She was treated with IM steroids that she states helped her pain for a little while . She was seen at our facility shortly after and diagnosed with a severe L1 compression fracture-most likely chronic. She arrives today in an TLSO brace. She states she is taking the hydrocodone 5/325 mg twice daily which helps with her pain but states I do not want to get addicted . Patient denies pain moving down into her lower extremities. She feels pain is worse with walking and movement. She is not having any urinary symptoms. She had a normal UA on her last ED visit. She denies abdominal pain, nausea, vomiting, or changes in bowel movements. She is not having any chest pain, shortness of breath, difficulty breathing. MD elicited complaint: back pain Onset (ago): day(s) Timing: constant Location: right lower back Radiation: none Exacerbating factors: movement and walking Relieving factors: other (pain medications, IM steroids) Associated symptoms: Deny abdominal pain, chills, difficulty walking, dysuria, fatigue, fever(s), nausea, syncope, urinary urgency or vomiting Work related injury: No Review of Systems Const: Denies: fever(s), chills, body aches or fatigue Card: Denies: chest pain, palpitations, irregular heart rhythm, edema, swelling of feet/ankles, lightheadedness, syncope, pre-syncope, dyspnea on exertion, orthopnea, leg pain with exertion or acrocyanosis Resp: Denies: dyspnea, productive cough, non-productive cough, pain on inspiration, hemoptysis or chest congestion GI: Denies: abdominal pain, nausea, vomiting or diarrhea : Denies: flank pain, difficulty voiding, dysuria, urinary frequency, urinary urgency or urinary hesitancy Musc: Reports: back pain; Denies: neck pain, extremity pain, extremity swelling, joint pain or joint swelling Skin/Breast: Denies: rash or skin tenderness Neuro: Denies: headache(s), numbness in extremities, weakness in extremities, sensory changes or difficulty walking Physical Exam Const: COMMON NORMALS: no acute distress, patient oriented x3, no limitations and alert GENERAL APPEARANCE: cooperative ORIENTATION/CONSCIOUSNESS: Yes oriented to person, Yes oriented to place and Yes oriented to time Chest: COMMONS NORMALS: normal inspection of the chest and normal palpation of entire chest wall Resp: COMMON NORMALS: normal respiratory effort and clear to auscultation bilaterally AUSCULTATION: clear to auscultation bilaterally Cardio: COMMON NORMALS: regular rate and regular rhythm RATE: regular rate RHYTHM: regular rhythm GI: COMMON NORMALS: Normal to inspection, nondistended, normoactive bowel sounds present, Soft to palpation, non-tender, No hepatosplenomegaly present and no masses PALPATION: Yes Soft to palpation and Yes No hepatosplenomegaly present : COMMON NORMALS: Yes no CVA tenderness BLADDER/KIDNEY EXAM: Yes no CVA tenderness Back/Pelvis: COMMON NORMALS: no CVA tenderness THORACIC SPINE/UPPER BACK: Yes normal to inspection LUMBAR SPINE/LOWER BACK: No lumbar spinal tenderness and Yes straight leg raise negative bilaterally SACROILIAC JOINTS: Yes SI joint(s) abnormal (TTP R sided ) OTHER: does not appear to be tender to her lumbar midline/over her L1 compression fx BACK IMAGE (FEMALE): 1. TTP Extremity: COMMON NORMALS: normal to inspection and full ROM GENERAL: Yes normal exam except as noted Neuro: COMMON NORMALS: patient oriented x3, moves all extremities, no focal motor deficits, no sensory deficits noted and gait normal SENSORIUM/ORIENTATION: Yes alert, Yes oriented to person, Yes oriented to place and Yes oriented to time Skin: COMMON NORMALS: no rashes or lesions noted GENERAL SKIN EXAM: no rashes or lesions noted Course Vital Signs: Vital signs: Vital Signs Temperature 98.4 F 11/21/20 15:25 Pulse Rate 84 11/21/20 15:25 Respiratory Rate 18 11/21/20 15:25 Blood Pressure 211/102 11/21/20 15:25 Pulse Oximetry 96 11/21/20 15:25 MDM - Back Pain/Injury MDM Narrative: Medical decision making narrative: Patient states she does not want another steroid injection today as she received one approximately two weeks ago and doesn't want to take too much . She states she has been told not to take NSAIDS along with her daily aspirin. She does state her hydrocodone works but worries about becoming addicted. She states she only has a few tabs of this left. Patient's exam is not concerning for anything emergent at this time. I do recommend she follows up with her primary care provider for further management. I told her I will give her more of her hydrocodone that she can continue to use sparingly if it is helping with her discomfort. Discharge Plan Discharge Patient Disposition: Home Clinical Impression: Right-sided low back pain without sciatica Qualifiers: Chronicity: acute Qualified Code(s): M54.5 - Low back pain Condition: Stable Prescriptions: Continued hydrocodone-acetaminophen 5-325 mg tablet 1 tab PO Q4H PRN (Reason: pain) Qty: 15 RF: 0 No Action carbidopa-levodopa 10-100 mg tablet 1 tab PO ONCE RF: 0 omeprazole 20 mg Capsule,Delayed Release(Dr/Ec) 20 mg PO DAILY RF: 0 hydrochlorothiazide 25 mg tablet 12.5 mg PO DAILY RF: 0 benazepril 40 mg tablet 40 mg PO DAILY RF: 0 Discharge Orders: Discharge ED (Routine); Ordered 11/21/20 Ordered By: Eugenie Mccloud Referrals: Hossein Beach Jr, MD [Primary Care Provider] - Activity Restrictions/Additional Instructions: Please follow-up with your primary care provider soon as possible. You may return to the emergency department for severe pain, numbness urinating or having a bowel movement, repetitive episodes of vomiting or diarrhea, fevers, severe leg pain, redness, or swelling, or any other concerns you may have. 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
== END 2020-11-21 16:33 | disposition home or self-care (01) ==
PROVIDERS: Emergency Provider Physician Assistant; PCP Family Medicine
DX: M54.5 Low back pain (principal)
CPT/HCPCS: 12345; 99281; 99282

== ENCOUNTER 2020-12-07 10:33 | Outpatient (CLI) | payer MEDICARE, SELFPAY ==
--- NOTE | 2020-12-07 10:45 | XR_ITS ---
WS: [id number] LUMBAR SPINE TECHNIQUE: 3 views of the lumbar spine CLINICAL INFORMATION: FALL AT HOME WEDGE COMPRESSTION FRACTURE OF FIRST LUMBAR BAY COMPARISON: November 11, 2020 FINDINGS: Five [id number] lumbar vertebral bodies. Osteopenia. Mild lumbar curve convex left. IVC filter. Impression fracture involving the superior endplate L2 with loss of approximately 30% vertebral body height. Mild retropulsion. Additional mild additional compression of the L1 vertebral body compared t o previous. Vertebral plana at this level. Disc space narrowing worse L5-S1. XR/XR lumbar spine 2-3V* [id number] IMPRESSION: 1. New compression fracture of the L2 vertebral body compared to previous. [place] of approximately 30% vertebral body height superior endplate. Mild retropulsi on. This can be further evaluated with CT or MRI. 2. Additional progressive compression of the L1 vertebral body with vertebral plana configuration. 3. IVC filter. 4. Disc space narrowing worse L5-S1.
== END 2020-12-07 10:34 | disposition home or self-care (01) ==
LOC: RADWPI 10:41
PROVIDERS: PCP Family Medicine; Visit Provider Nurse Practitioner Family
DX: S32.010A Wedge compression fracture of first lumbar vertebra, initial encounter for closed fracture (principal); S32.020A Wedge compression fracture of second lumbar vertebra, initial encounter for closed fracture; W19.XXXA Unspecified fall, initial encounter
CPT/HCPCS: 72100

== ENCOUNTER 2021-06-10 11:11 | Emergency (ER) | payer MEDICARE, SELFPAY ==
[2021-06-10 11:22] VITALS: BP 169/88; PULSE 71; RESP 16; TEMP 36.8; O2SAT 93; BMI 22.1
--- NOTE | 2021-06-10 11:42 | ED_ITS ---
HPI - Extremity Problem General: Chief complaint: Extremity Injury, Upper Stated complaint: FALL, LEFT RIB/ARM PAIN Time Seen by Provider: 06/10/21 11:29 Source: patient, family (daughter), RN notes reviewed and old records reviewed Mode of arrival: ambulatory Limitations: no limitations History of Present Illness: HPI Narrative: This is a 75-year-old female with a history of Parkinson's disease who lives alone in her apartment. She was brought into the emergency department by her daughter for evaluation following a fall 2 days ago. The patient states that she tripped and fell backwards and landed on her back, she denies hitting her head and she denies any loss of consciousness. She is not on any anticoagulation. She complains of posterior rib pain and wants to be evaluated for these. She denies pain anywhere else, and has been ambulating without significant difficulty. Onset (ago): day(s) (2) Pain Consistency: constant Location: left Quality: sharp Radiation: none Relieving factors: nothing Exacerbating factors: nothing Associated symptoms: Deny arthralgias, fever(s), myalgias, rash or short of breath Review of Systems General: Reports: 10 or more systems reviewed and unremarkable except in HPI and below Const: Denies: fever(s) Skin/Breast: Denies: rash Physical Exam Const: COMMON NORMALS: no acute distress, average body habitus, patient oriented x3, no limitations, healthy appearing, alert and well nourished HENMT: COMMON NORMALS: normocephalic, atraumatic and moist oral mucous membranes HEAD & SCALP: normocephalic and atraumatic Neck/C-Spine: COMMON NORMALS: full ROM, supple, no meningeal signs, no JVD and No carotid bruits Chest: COMMONS NORMALS: normal inspection of the chest CHEST: Yes tenderness (Left posterior chest wall) Resp: COMMON NORMALS: normal respiratory effort, No retractions, No use of accessory muscles, clear to auscultation bilaterally and percussion normal AUSCULTATION: clear to auscultation bilaterally PERCUSSION: percussion normal Cardio: COMMON NORMALS: no JVD, regular rate, regular rhythm, S1 normal heart sound present, S2 normal heart sound present, No gallops present (Cardio), No clicks present (Cardio), No murmurs present (Cardio), No rub (Cardio) and Peripheral pulses 2+ throughout RATE: regular rate RHYTHM: regular rhythm HEART SOUNDS: S1 normal heart sound present and S2 normal heart sound present PERIPHERAL PULSES: Peripheral pulses 2+ throughout GI: COMMON NORMALS: Normal to inspection, nondistended, normoactive bowel sounds present, Soft to palpation, non-tender, No hepatosplenomegaly present, no masses and no bruits PALPATION: Yes Soft to palpation and Yes No hepatosplenomegaly present : COMMON NORMALS: Yes no CVA tenderness BLADDER/KIDNEY EXAM: Yes no CVA tenderness Back/Pelvis: COMMON NORMALS: no CVA tenderness THORACIC SPINE/UPPER BACK: Yes normal to inspection, Yes thoracic ROM normal, No pain with ROM and No thoracic spinal tenderness LUMBAR SPINE/LOWER BACK: Yes normal to inspection, Yes lumbar ROM normal, No pain with ROM, No lumbar spinal tenderness and No paraspinal muscle tenderness PELVIS: Yes no pain with anterior-posterior compression and Yes no pain with lateral compression Extremity: COMMON NORMALS: normal to inspection, full ROM, capillary refill normal, no calf tenderness and no pedal edema Neuro: COMMON NORMALS: patient oriented x3 SENSORIUM/ORIENTATION: Yes alert MENINGEAL SIGNS: Yes no meningeal signs Skin: COMMON NORMALS: no rashes or lesions noted, no wounds, turgor normal, no jaundice, no petechiae and no mottling GENERAL SKIN EXAM: no rashes or lesions noted and turgor normal Course Reevaluation(s): Reevaluation #1: Discussed her imaging findings with her. She has multiple rib fractures on the left. Discussed management options with her including admission for observation since she is at risk for developing complications of the rib fractures including pneumonia versus outpatient. The patient was not interested in hospital stay and wanted to be discharged home. Daughter is here and states that the patient will not be returning to her home and will be staying with one of her children for now until she heals. They will return if she has any concerns or if they are concerned about deterioration. Time: 13:29 Vital Signs: Vital signs: Vital Signs Temperature 98.2 F 06/10/21 11:22 Pulse Rate 78 06/10/21 13:45 Respiratory Rate 18 06/10/21 13:45 Blood Pressure 135/78 06/10/21 13:45 Pulse Oximetry 94 06/10/21 13:45 MDM - Extremity (Nontraumatic) MDM Narrative: Medical decision making narrative: 75 year old female who presents to the ED after a fall 2 days ago. She was concerned about rib fractures and on imaging she did indeed have multiple rib fractures. She is not hypoxic and not in distress. No requiring oxygen. She is advised to be observed for signs of deterioration due to her age and the fact that she has multiple rib fractures so she is high risk. She however declined hospital stay and opted for outpatient therapy. She is counseled to return if she has any concerns. Medical Records: Attestation: I reviewed the patient's medical records. Imaging Data^: CXR: Attestation: I personally reviewed and interpreted this imaging study as follows: Radiologist's impression: [address] [id number] ReportSigned Patient: Radha Martinez AUnit #: [id number]: 1945cct#:[id number]/Sex: 75 / FADM Date: 06/10/21Loc: ERRoom/Bed:Attending Dr: Ordering Provider/Ordering MD: Jermaine Clemons MD, [facility] [place] Date of Service: 06/10/21 Procedure(s): XR ribs LT mn 3V w CXR1V [id number] Accession Number(s): [id number] Report Number: [id number] PROCEDURE INFORMATION: Exam: XR Left Ribs with PA Chest Exam date and time: 06/10/2021 11:41 AM Age: 75 years old Clinical indication: Injury or trauma; Fall; Rib area, left side; Blunt trauma; Additional info: Fall, left rib pain and tenderness TECHNIQUE: Imaging protocol: XR Left ribs with PA chest. Views: 3 views COMPARISON: CR XR chest 1V portable [id number] 09/14/2020 11:36 AM FINDINGS: Lungs: Low lung volumes seen No consolidation. Pleural spaces: Unremarkable. No pleural effusion. No pneumothorax. Heart/Mediastinum: Unremarkable. No cardiomegaly. Bones/joints: Generalized osteopenia is seen. There are multiple displaced left rib fractures present. There is kyphoplasty present in the lower dorsal spine. A vena cava filter is in place in good position. XR/XR ribs LT mn 3V w CXR1V [id number] IMPRESSION: 1. Low lung volumes the lungs are otherwise clear 2. Multiple displaced left rib fractures 3. Kyphoplasty lower dorsal spine Dictated By:Angella Dexter By:Angella Dexter Date/Time:06/10/21 1320DD/ 1318 Discharge Plan Discharge Patient Disposition: Home Clinical Impression: Multiple fractures of ribs of left side Qualifiers: Encounter type: initial encounter Fracture type: closed Qualified Code(s): S22.42XA - Multiple fractures of ribs, left side, initial encounter for closed fracture Fall Qualifiers: Encounter type: initial encounter Qualified Code(s): W19.XXXA - Unspecified fall, initial encounter Condition: Stable Prescriptions: New hydrocodone-acetaminophen 5-325 mg tablet 1 tab PO Q8H PRN (Reason: rib fractures) Qty: 21 RF: 0 Continued carbidopa-levodopa 10-100 mg tablet 1 tab PO DAILY RF: 0 omeprazole 20 mg Capsule,Delayed Release(Dr/Ec) 20 mg PO DAILY RF: 0 hydrochlorothiazide 25 mg tablet 12.5 mg PO DAILY RF: 0 benazepril 40 mg tablet 40 mg PO DAILY RF: 0 metoprolol succinate 50 mg tablet extended release 24 hr 50 mg PO DAILY RF: 0 aspirin 81 mg Tablet,Delayed Release (Dr/Ec) 81 mg PO DAILY RF: 0 Tylenol Extra Strength 500 mg Tablet 1,000 mg PO Q6H PRN (Reason: Pain) RF: 0 Discontinued hydrocodone-acetaminophen 5-325 mg tablet 1 tab PO Q4H PRN (Reason: pain) Qty: 15 RF: 0 Discharge Orders: Discharge ED (Routine); Ordered 06/10/21 Ordered By: Jermaine Clemons Referrals: Kecia Medina APN [Primary Care Provider] - 1-3 days Discharge Diet: Usual diet Discharge Activity: Increase activity as tolerated Patient Instructions: Rib Fracture (ED), Fall Prevention (ED), Opioid Safety Activity Restrictions/Additional Instructions: Return for any new or worsening symptoms. Follow-up with your primary care provider within 3 days. It is important that you are able to breathe normally and take deep breaths to prevent pneumonia. If you develop a fever or have significantly worsening shortness of breath please return to the emergency department to be evaluated. Take the pain medicine as needed for pain. 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
[2021-06-10 13:45] VITALS: BP 135/78; PULSE 78; RESP 18; O2SAT 94
== END 2021-06-10 13:45 | disposition home or self-care (01) ==
PROVIDERS: Emergency Provider Family Medicine; PCP Nurse Practitioner
DX: S22.42XA Multiple fractures of ribs, left side, initial encounter for closed fracture (principal); G20 Parkinson's disease; W01.0XXA Fall on same level from slipping, tripping and stumbling without subsequent striking against object, initial encounter
CPT/HCPCS: 71101; 99283

== ENCOUNTER 2022-10-13 16:49 | Emergency (ER) | payer MEDICARE, SELFPAY ==
[2022-10-13 16:55] VITALS: BP 201/102; PULSE 65; RESP 20; O2SAT 95
--- NOTE | 2022-10-13 17:02 | XRR_ITS ---
PROCEDURE INFORMATION: Exam: XR Right Elbow Exam date and time: 10/13/2022 6:20 PM Age: 76 years old Clinical indication: Injury or trauma; Fall; Blunt trauma (contusions or hematomas); Elbow; Right TECHNIQUE: Imaging protocol: Radiologic exam of the Right elbow. Views: 3 or more views. COMPARISON: No relevant prior studies available. FINDINGS: Bones/joints: Osseous structures are intact. Negative for fracture. Soft tissues: Normal. XR/XR elbow RT min 3V* [id number] IMPRESSION: No acute findings.
--- NOTE | 2022-10-13 17:06 | CTR_ITS ---
PROCEDURE INFORMATION: Exam: CT Maxillofacial Without Contrast Exam date and time: 10/13/2022 5:12 PM Age: 76 years old Clinical indication: Injury or trauma; Fall; Blunt trauma (contusions or hematomas); Orbit/periorbital; Right TECHNIQUE: Imaging protocol: Computed tomography of the face without contrast. Radiation optimization: All CT scans at this facility use at least one of these dose optimization techniques: automated exposure control; mA and/or kV adjustment per patient size (includes targeted exams where dose is matched to clinical indication); or iterative reconstruction. COMPARISON: CT head wo con* [id number] 09/14/2020 11:08 AM RADIATION DOSE METRICS: Total DLP (mGy-cm): 496 FINDINGS: Orbital cavities: Orbits are normal. Globes are unremarkable. Bones/joints: No acute fracture. Paranasal sinuses: Normal. No air-fluid levels. Soft tissues: Right periorbital laceration. CT/CT facial bones wo con* [id number] IMPRESSION: No acute osseous abnormalities of the maxillofacial structures.
--- NOTE | 2022-10-13 17:06 | CTR_ITS ---
PROCEDURE INFORMATION: Exam: CT Head Without Contrast Exam date and time: 10/13/2022 5:12 PM Age: 76 years old Clinical indication: Injury or trauma; Fall; Blunt trauma (contusions or hematomas); Without loss of consciousness; Additional info: Closed head injury TECHNIQUE: Imaging protocol: Computed tomography of the head without contrast. Radiation optimization: All CT scans at this facility use at least one of these dose optimization techniques: automated exposure control; mA and/or kV adjustment per patient size (includes targeted exams where dose is matched to clinical indication); or iterative reconstruction. COMPARISON: CT head wo con* [id number] 09/14/2020 11:08 AM RADIATION DOSE METRICS: Total DLP (mGy-cm): 1061.7 FINDINGS: Brain: No hemorrhage. No edema. 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 Moderate diffuse cerebral atrophy. No mass effect. Cerebral ventricles: No ventriculomegaly. Paranasal sinuses: Visualized sinuses are unremarkable. No fluid levels. Mastoid air cells: Visualized mastoid air cells are well aerated. Bones/joints: Unremarkable. No acute fracture. Soft tissues: Unremarkable. CT/CT head wo con* [id number] IMPRESSION: 1. No acute intracranial abnormality. 2. 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
--- NOTE | 2022-10-13 17:08 | W.ED.FALL ---
HPI - Fall General: Chief Complaint: Fall Stated Complaint: RIGHT ELBOW AND EYEBROW PAIN S/P FALL Time Seen by Provider: 10/13/22 16:54 Source: patient Mode of arrival: EMS History of Present Illness: 76-year-old female presents emergency room via EMS after a fall she states she stumbled and fell mechanical ground-level fall she has a small cut at the lateral supraorbital ridge on the right and skin tear of the right elbow. Ambulatory after the fall she did not lose consciousness she is not vomiting she is not on any anticoagulants her blood pressure is alarmingly high she states it is always elevated when she is not worried about it. She goes to great lengths to reassure me that her blood pressure in excess of 200 systolic is her normal and is fine for her. complaint: fall Onset (ago): minute(s) Fall from: standing Place fall occurred: home Loss of consciousness: None Prolonged down time: no Context: tripped/slipped Location of injury: face Location of injury - extremities: Right: elbow Severity: moderate Associated symptoms-after fall: Reports neck pain; Denies abdominal pain, chest pain, confusion, difficulty walking, headache(s), hematuria, lightheadedness, numbness, short of breath, vertigo or weakness Review of Systems Const: Denies: fever(s), chills, body aches, change in appetite, fatigue or malaise ENMT: Denies: throat pain, ear or mastoid pain, nasal discharge or nasal congestion Card: Denies: chest pain or lightheadedness Resp: Denies: dyspnea, productive cough or non-productive cough GI: Denies: abdominal pain : Denies: hematuria Musc: Reports: neck pain Skin/Breast: Denies: rash or pruritus Neuro: Denies: headache(s), difficulty walking, vertigo or confusion PFSH ED PFSH: Medical History (Updated 10/21/22 @ 00:00 by ) Hypertension Social History (Updated 10/13/22 @ 17:10 by Rito Gonzalez DO) Smoking and tobacco status: never smoked Alcohol intake: never Physical Exam Const: COMMON NORMALS: no acute distress GENERAL APPEARANCE: cooperative and comfortable ORIENTATION/CONSCIOUSNESS: Yes awake, Yes oriented to person, Yes oriented to place and Yes oriented to time HENMT: COMMON NORMALS: normocephalic, hearing grossly normal bilaterally, external ears normal, EAC's normal, TM's normal bilaterally, Normal nasal mucous membranes and turbinates present, moist oral mucous membranes and oropharynx normal HEAD & SCALP: normocephalic NOSE: Normal nasal mucous membranes and turbinates present EXTERNAL EAR: Yes external ears normal EXTERNAL AUDITORY CANAL: EAC's normal TYMPANIC MEMBRANE: TM's normal bilaterally Eye: COMMON NORMALS: Equal, round and reactive pupils present, EOMs intact bilaterally, conjunctivae normal and no scleral icterus CONJUNCTIVA: Yes conjunctivae normal PUPIL: Yes Equal, round and reactive pupils present Neck/C-Spine: COMMON NORMALS: full ROM, no lymphadenopathy, supple and no JVD Resp: COMMON NORMALS: normal respiratory effort, No retractions, No use of accessory muscles and clear to auscultation bilaterally AUSCULTATION: clear to auscultation bilaterally Cardio: COMMON NORMALS: no JVD, regular rate, regular rhythm and No murmurs present (Cardio) RATE: regular rate RHYTHM: regular rhythm GI: COMMON NORMALS: Soft to palpation and No hepatosplenomegaly present AUSCULTATION: Yes normoactive bowel sounds PALPATION: Yes Soft to palpation, No Tenderness to palpation present (GI), No Guarding due to palpation present (GI) and Yes No hepatosplenomegaly present Extremity: COMMON NORMALS: normal to inspection, capillary refill normal, no clubbing, cyanosis or edema, no calf tenderness and no pedal edema Neuro: SENSORIUM/ORIENTATION: Yes oriented to person, Yes oriented to place and Yes oriented to time Skin: OTHER: Small laceration right supraorbital ridge laterally and a skin tear on the right elbow Course Vital Signs: Vital signs: Vital Signs Pulse Rate 44 L 10/13/22 18:52 Respiratory Rate 17 10/13/22 18:52 Blood Pressure 112/62 10/13/22 18:00 Pulse Oximetry 97 10/13/22 18:52 Oxygen Delivery Me thod 10/13/22 16:55 MDM - Fall Medical Decision Making Labs and imaging reviewed there is no evidence of fracture. Blood pressure is markedly elevated we will add amlodipine 2.5 mg daily. Use topical antibiotic ointment for skin tears. Follow-up with primary care to recheck blood pressure in 7 to 10 days return if is further problems. Labs and imaging reviewed with the patient. Medical Records I reviewed the patient's medical records. Lab Data I reviewed the patient's lab results. Radiology Impressions Elbow X-Ray 10/13/22 17:02 IMPRESSION: No acute findings. Face CT 10/13/22 17:06 IMPRESSION: No acute osseous abnormalities of the maxillofacial structures. Head CT 10/13/22 17:06 IMPRESSION: 1. No acute intracranial abnormality. 2. 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 Discharge Plan Discharge Patient Disposition: Home Clinical Impression: Fall, Hypertension Prescriptions: New mupirocin 2 % ointment 1 applic topical BID Qty: 15 0RF amlodipine 2.5 mg tablet 2.5 mg PO DAILY Qty: 30 0RF No Action carbidopa-levodopa 10-100 mg tablet 1 tab PO DAILY omeprazole 20 mg Capsule,Delayed Release(Dr/Ec) 20 mg PO DAILY hydrochlorothiazide 25 mg tablet 12.5 mg PO DAILY benazepril 40 mg tablet 40 mg PO DAILY metoprolol succinate 50 mg tablet extended release 24 hr 50 mg PO DAILY aspirin 81 mg Tablet,Delayed Release (Dr/Ec) 81 mg PO DAILY Tylenol Extra Strength 500 mg Tablet 1,000 mg PO Q6H PRN (Reason: Pain) hydrocodone-acetaminophen 5-325 mg tablet 1 tab PO Q8H PRN (Reason: rib fractures) Qty: 21 0RF Discharge Orders: Discharge ED (Routine); Ordered 10/13/22 Ordered By: Rito Gonzalez Referrals: Kecia Medina APN [Primary Care Provider] - Discharge Diet: Usual diet Discharge Activity: Resume usual activity Patient Instructions: Opioid Safety, Pain Management Activity Restrictions/Additional Instructions: You were seen today for a fall. Was also noted your blood pressure was markedly elevated. All of your x-rays and scans were negative there is no signs of fracture. Apply the topical antibiotic ointment twice daily to the skin tears on the elbow and to the area on the right side of the forehead. We did give you prescription for amlodipine 2 and half milligrams once daily take in addition to all of your other blood pressure medications and follow-up on your blood pressure with your primary care doctor within the next week. 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
[2022-10-13] MEDS: amlodipine 10 mg Tablet PO (17:34)
[2022-10-13] MEDS: hyDRALAzine 20 mg/mL INJ 1 mL IVP (17:34)
[2022-10-13] MEDS: tetanus-diphtheria tox (adult) 0.5 mL SDV IM (17:35)
[2022-10-13 18:00] VITALS: BP 112/62
--- NOTE | 2022-10-13 18:19 | PC.NURSE ---
PT RIGHT EYE LAC CLEANED AND DRESSED WITH STERI STRIPS. PT RIGHT ELBOW ABRASION CLEANED AND WRAPPED WITH KERLIX
[2022-10-13 18:52] VITALS: PULSE 44; RESP 17; O2SAT 97
== END 2022-10-13 18:55 | disposition home or self-care (01) ==
PROVIDERS: Emergency Provider Family Medicine; PCP Nurse Practitioner
DX: S51.011A Laceration without foreign body of right elbow, initial encounter (principal); S01.81XA Laceration without foreign body of other part of head, initial encounter; I10 Essential (primary) hypertension; W19.XXXA Unspecified fall, initial encounter; Z23 Encounter for immunization
CPT/HCPCS: 70450; 70486; 73080; 90471; 90714; 96374; 99285; J0360

== ENCOUNTER 2022-11-05 10:57 | Outpatient (CLI) | payer MEDICARE, SELFPAY ==
--- NOTE | 2022-11-05 11:04 | CT_ITS ---
WS: [id number] CT ABDOMEN WITH CONTRAST HISTORY: ELEVATED URINE LEVELS OF DRUGS, hypertension. Contiguous single phase 5 mm axial imaging performed to the abdomen. Oral contrast has been provided. Coronal and sagittal reformats are submitted. All CT scans at [facility] use at least one of these dose optimization techniques: automated exposure control; mA and/or kV adjustment per patient size (includes targeted exams where dose is matched to clinical indication); or iterative reconstruct ion. CONTRAST: Omnipaque 350; 95 mL IV. DLP: 459.06 mGy.cm COMPARISON: 08/08/2017 Lower thorax: Increased AP diameter of the thorax. Linear areas of scarring and atelectasis at the nai ng bases. Large hiatal hernia. Small amount of fluid along the anterior pericardial recess. Liver: Normal. No intrahepatic dilatation. Gallbladder: Contracted gallbladder. Mild enhancement of the wall. No pericholecystic fluid. Pancreas: Atrophy. Spleen: Granulomatous. Adrenals: Normal. Right kidney: Normal size kidney. There are a few minimal hypodensities within the cortex. No solid m ass or obstruction. Left kidney: No solid mass or obstruction. Aorta: Atherosclerosis, no aneurysm. IVC filter. GI tract: Large hiatal hernia. Large portion of the stomach is intrathoracic. No small bowel obstruct ion. The visualized small bowel and colon within the abdomen are negative for acute process. There is constipation noted throughout the transverse colon. No obstructing mass. No adenopathy or free fluid. Abdominal wall: No hernia. Visualized osseous structures: Severe compression fractures at L1-L2 with prior vertebroplasty. Mild anterior wedging with loss of height involving the superior endplate of L4 by 10%. Fractures are new since 2017. Previously described on a prior radiograph of 12/07/2020. CT/CT abdomen w con* [id number] IMPRESSION: 1. No acute abdomen pathology identified. 2. Mild contraction of the gallbladder with wall enhancement. No adjacent infl ammation. May represent early changes of acute cholecystitis. Further evaluatio n by ultrasound may provide additional information. 3. Constipation. 4. IVC filter. 5. Large hiatal hernia. 6. IVC filter. 7. Remote compression fractures with vertebroplasty at L1 and L2. Mild, age in determinate anterior wedging L4.
[2022-11-05] MEDS: iohexol 350 mg/mL 500 mL Btl (per mL) PO (11:28)
[2022-11-05] MEDS: iohexol 350 mg/mL 500 mL Btl (per mL) IV (12:14)
== END 2022-11-05 10:58 | disposition home or self-care (01) ==
LOC: RAD 10:58
PROVIDERS: PCP Nurse Practitioner; Visit Provider Nurse Practitioner Family
DX: R82.5 Elevated urine levels of drugs, medicaments and biological substances (principal)
CPT/HCPCS: 74160; Q9967

== ENCOUNTER 2023-02-26 14:35 | Observation (INO) | payer MEDICARE, SELFPAY ==
[2023-02-26] VITALS (38 sets, daily range): BP systolic 131–197; BP diastolic 78–153; PULSE 74–107; RESP 13–29; TEMP 36.7; O2SAT 82–96
--- NOTE | 2023-02-26 15:57 | XR_ITS ---
WS: [id number] EXAMINATION: XR chest 1V portable [id number] REASON FOR EXAM: dyspnea/cough COMPARISON: 06/10/2021 ORDER DATE: 02/26/2023 4:00 PM TECHNIQUE: A single, portable frontal chest x-ray was obtained. X-RAY FINDINGS: Lungs: There are scattered minor chronic lung changes. No consolidation. Pleural spaces: Unremarkable. No pleural effusion. No pneumothorax. Heart/Mediastinum: Unremarkable. No cardiomegaly. Bones/joints: Generalized osteopenia is seen. There are multiple displaced left rib fractures chronic ally decreasing the lung volume on the left. There is kyphoplasty present in the lower dorsal spine. A vena cava filter is in place in good position. IMPRESSION 1. Minor chronic lung changes 2. Multiple displaced left rib fractures 3. Kyphoplasty lower dorsal spine
--- NOTE | 2023-02-26 15:57 | CTR_ITS ---
PROCEDURE INFORMATION: Exam: CT Head Without Contrast Exam date and time: 02/26/2023 4:28 PM Age: 77 years old Clinical indication: Injury or trauma; Fall; Blunt trauma (contusions or hematomas); Additional info: Fall/closed head injury TECHNIQUE: Imaging protocol: Computed tomography of the head without contrast. Radiation optimization: All CT scans at this facility use at least one of these dose optimization techniques: automated exposure control; mA and/or kV adjustment per patient size (includes targeted exams where dose is matched to clinical indication); or iterative reconstruction. REPORTING DATA: Count of CT and Cardiac NM exams in prior 12 months: This patient has received 3 known CTs and 0 known cardiac nuclear medicine studies in the 12 months prior to the current study. COMPARISON: CT head wo con* [id number] 10/13/2022 5:12 PM RADIATION DOSE METRICS: Total DLP (mGy-cm): 1001.05 FINDINGS: Brain: Chronic bilateral occipital infarcts, similar to prior exam. Moderate diffuse white matter disease likely reflecting chronic microvascular ischemic changes. Cerebral ventricles: No ventriculomegaly. Paranasal sinuses: Visualized sinuses are unremarkable. No fluid levels. Mastoid air cells: Visualized mastoid air cells are well aerated. Bones/joints: Unremarkable. No acute fracture. Soft tissues: Unremarkable. CT/CT head wo con* [id number] IMPRESSION: 1. Negative for intracranial hemorrhage or mass effect. 2. Chronic bilateral occipital infarcts, similar to prior exam. 3. Moderate diffuse white matter disease likely reflecting chronic microvascular ischemic changes.
[2023-02-26 16:42] LABS: Basophils % 0.4 %; Eosinophils # 0.1 10^3/uL (0.0-0.8); Eosinophils % 1.2 %; Hematocrit 40.2 % (37.0-47.0); Hemoglobin 13.7 g/dL (11.5-15.3); Lymphocytes # 1.2 10^3/uL (0.8-4.8); Lymphocytes % 20.4 %; Mean Corpuscular HGB Conc 34.1 g/dL (30.0-36.0); Mean Corpuscular Hemoglobin 31.1 pg (28.0-34.0); Mean Corpuscular Volume 91.4 fl (81-99); Mean Platelet Volume 9.9 fL (7.4-10.4); Monocytes # 0.6 10^3/uL (0.2-0.9); Monocytes % 9.8 %; Neutrophils # 3.87 10^3/uL (1.8-7.7); Neutrophils % 67.8 %; Nucleated Red Blood Cells % 0 %; Platelet Count 268 10^3/cmm (130-400); Red Cell Distribution Width 12.2 % (12.1-15.1); White Blood Count 5.7 10^3/uL (4.0-10.0)
--- NOTE | 2023-02-26 16:43 | W.ED.SYNCOPE ---
Documented by User: Rito Gonzalez DO 03/04/23 05:44 HPI - Syncope General: Chief Complaint: Syncope Stated Complaint: Low BP, Fall, Lower stomach pains Time Seen by Provider: 02/26/23 15:54 Source: patient and family Mode of arrival: ambulatory History of Present Illness: 77-year-old female presents to the emergency room after syncopal episode. Patient has a history of Parkinson's she is on Sinemet she is also on chlorthalidone and clonidine and metoprolol. She denies any recent change in her medication she has had multiple episodes of syncope in the past per her report. Family member at the bedside confirms. She is not on any anticoagulants she cannot really recall much about what happened she denies striking her head she denies any pain or injury at this time denies chest pain or shortness of breath no pain in the extremities. MD complaint: loss of consciousness Onset (ago): minute(s) Prodromal symptoms: none Witnessed: No Context: during exertion Injuries sustained associated with event: none Associated symptoms: Deny abdominal pain, chest pain, fever(s) or nausea History: other (Parkinson's) Treatments prior to arrival: none Review of Systems Const: Denies: fever(s), chills, body aches, change in appetite, fatigue or malaise ENMT: Denies: throat pain, ear or mastoid pain, nasal discharge or nasal congestion Card: Denies: chest pain, edema, dyspnea on exertion or orthopnea Resp: Denies: dyspnea, productive cough or non-productive cough GI: Denies: abdominal pain, nausea, vomiting, hematemesis, coffee ground emesis, diarrhea, constipation, bloating, hematochezia or melena : Denies: flank pain, difficulty voiding, dysuria, urinary frequency or urinary urgency Skin/Breast: Denies: rash or pruritus PFSH ED PFSH: Medical History Atrial fibrillation Fall Fall in elderly patient GERD (gastroesophageal reflux disease) Hiatal hernia Hypertension Hypokalemia Multiple fractures of ribs of left side Parkinson disease Pulmonary nodule Syncope Syncope and collapse Social History Smoking and tobacco status: never smoked Alcohol intake: never Physical Exam Const: COMMON NORMALS: no acute distress GENERAL APPEARANCE: cooperative and comfortable ORIENTATION/CONSCIOUSNESS: Yes awake, Yes oriented to person, Yes oriented to place and Yes oriented to time HENMT: COMMON NORMALS: normocephalic, atraumatic and hearing grossly normal bilaterally HEAD & SCALP: normocephalic and atraumatic Resp: COMMON NORMALS: normal respiratory effort, No retractions, No use of accessory muscles and clear to auscultation bilaterally AUSCULTATION: clear to auscultation bilaterally Cardio: COMMON NORMALS: No murmurs present (Cardio) RATE: tachycardic RHYTHM: abnormal rhythm irregularly irregular GI: COMMON NORMALS: Soft to palpation and No hepatosplenomegaly present AUSCULTATION: Yes normoactive bowel sounds PALPATION: Yes Soft to palpation, No Tenderness to palpation present (GI), No Guarding due to palpation present (GI) and Yes No hepatosplenomegaly present Extremity: COMMON NORMALS: normal to inspection, capillary refill normal, no clubbing, cyanosis or edema, no calf tenderness and no pedal edema Neuro: SENSORIUM/ORIENTATION: Yes oriented to person, Yes oriented to place and Yes oriented to time Skin: COMMON NORMALS: no rashes or lesions noted GENERAL SKIN EXAM: no rashes or lesions noted Course Vital Signs: Vital signs: Vital Signs Temperature 98.5 F 02/28/23 11:14 Pulse Rate 74 02/28/23 12:14 Respiratory Rate 13 02/28/23 12:14 Blood Pressure 135/82 02/28/23 12:14 Pulse Oximetry 95 02/28/23 12:14 Oxygen Delivery Me thod Room Air 02/28/23 11:14 MDM - Syncope Medical Decision Making Initial EKG shows A-fib with well-controlled rate patient has no specific complaints suspect some of her medicines are contributing to this as well as the underlying dose of Parkinson's today. Signout Holley 77-year-old female handed off to me by Dr. Gonzalez pending completion of ED evaluation. Laboratory studies reviewed with no significant hematologic abnormality. Mild hypoxemia with respiratory alkalosis on ABG. Metabolic panel with hyponatremia. Initial troponin mildly elevated with intermediate range 2-hour delta. No UTI. Hematuria of unclear etiology. CT imaging and x-rays were reviewed. I confirmed with [facility] that rib deformities are chronic, the patient does not have specific tenderness at the possible hairline posterior fracture. I discussed possible disposition options, initially the patient preferred to wait for 6-hour troponin and be discharged however subsequently changed her mind. Most likely etiology of patient's symptoms is unclear, syncope of uncertain etiology with intermediate range elevation in 2-hour delta troponin requiring further inpatient management for possible cardiac etiology. The results of ED evaluation were discussed with the patient including plan for admission due to requirement for level of care not available if discharged to prevent significant worsening/deterioration. Patient agreeable with plan. Discussed with hospitalist service who was agreeable to admit patient. Lab Data 02/28/23 04:52 02/28/23 04:[address] 02/26/23 15:57 IMPRESSION: 1. Negative for intracranial hemorrhage or mass effect. 2. Chronic bilateral occipital infarcts, similar to prior exam. 3. Moderate diffuse white matter disease likely reflecting chronic microvascular ischemic changes. Cervical Spine CT 02/26/23 17:05 IMPRESSION: No acute abnormality. Chest CT 02/26/23 17:05 IMPRESSION: No acute abnormality. Large hiatal hernia. Nodule measuring 2 mm in the right lower lobe.For patients at low risk (minimal or absent history of smoking and of other known risk factors), no routine follow-up is indicated. For patients at high risk (history of smoking or of other known risk factors), consider optional CT Chest at 12 months. (Reference: Daniel) References: Daniel Escobedo, et al. Guidelines for Management of Incidental Pulmonary Nodules Detected on CT Images: From the Fleischner Society 2017. Radiology. 2017;284(1):228-243. ADDENDUM: 02/26/231855 This is an addendum to prior report on CT chest dated 02/26/2023 at 6:02 p.m.. There is a hairline deformity in the posterior left 9th rib which may represent a acute nondisplaced fracture. Laboratory Results WBC 5.7 10^3/uL (4.0-10.0) 02/26/23 15:57 RBC 4.40 10^6/uL (4.1-5.3) 02/26/23 15:57 Hgb 13.7 g/dL (11.5-15.3) 02/26/23 15:57 Hct 40.2 % (37.0-47.0) 02/26/23 15:57 MCV 91.4 fl (81-99) 02/26/23 15:57 MCH 31.1 pg (28.0-34.0) 02/26/23 15:57 MCHC 34.1 g/dL (30.0-36.0) 02/26/23 15:57 RDW 12.2 % (12.1-15.1) 02/26/23 15:57 Plt Count 268 10^3/cmm (130-400) 02/26/23 15:57 MPV 9.9 fL (7.4-10.4) 02/26/23 15:57 Neut % (Auto) 67.8 % 02/26/23 15:57 Lymph % (Auto) 20.4 % 02/26/23 15:57 [place] % (Auto) 9.8 % 02/26/23 15:57 Eos % (Auto) 1.2 % 02/26/23 15:57 Baso % (Auto) 0.4 % 02/26/23 15:57 Neut # (Auto) 3.87 10^3/uL (1.8-7.7) 02/26/23 15:57 Lymph # (Auto) 1.2 10^3/uL (0.8-4.8) 02/26/23 15:57 [place] # (Auto) 0.6 10^3/uL (0.2-0.9) 02/26/23 15:57 Eos # (Auto) 0.1 10^3/uL (0.0-0.8) 02/26/23 15:57 Baso # (Auto) 0.0 10^3/uL (0.0-0.1) 02/26/23 15:57 Nucleated RBC % (auto) 0 % 02/26/23 15:57 Nucleated RBCs # 0.0 /100WBC 02/26/23 15:57 Specimen Type Arterial 02/26/23 16:48 Sample Site Radial, left 02/26/23 16:48 ABG pH 7.49 (7.35-7.45) H 02/26/23 16:48 ABG pCO2 43.1 mmHg (35-45) 02/26/23 16:48 ABG pO2 67.6 mmHg (80.0-100.0) L 02/26/23 16:48 ABG HCO3 33.1 mmol/L (22-26) H 02/26/23 16:48 ABG O2 Saturation 95.2 02/26/23 16:48 ABG Base Excess 8.7 mmol/L (-2.0-2.0) H 02/26/23 16:48 Keanu Test Pos 02/26/23 16:48 A-a O2 Gradient 3.9 mmHg (5-10) L 02/26/23 16:48 Hematocrit 44.6 % (37-47) 02/26/23 16:48 Hgb O2 Saturation 94.0 % (95-100) L 02/26/23 16:48 Carboxyhemoglobin 1.2 %THgb (0.4-20.1) 02/26/23 16:48 Methemoglobin 0.1 % (0.4-1.5) L 02/26/23 16:48 Total Hemoglobin 14.5 g/dL (12-16) 02/26/23 16:48 Sodium 143.0 mmol/L (131-143) 02/26/23 16:48 Potassium 2.9 mmol/L (3.5-5.0) L 02/26/23 16:48 Glucose 98.0 mg/dL (70-115) 02/26/23 16:48 Ionized Calcium 1.2 mmol/L (1.1-1.4) 02/26/23 16:48 O2 Delivery Device Room air 02/26/23 16:48 FiO2 21.0 % 02/26/23 16:48 Reclamation Furnace Operator ID Monro 02/26/23 16:48 Sodium 142 mmol/L (136-145) 02/26/23 15:57 Potassium 3.0 mmol/L (3.5-5.1) L 02/26/23 15:57 Chloride 96 mmol/L (98-107) L 02/26/23 15:57 Carbon Dioxide 34 mmol/L (22-29) H 02/26/23 15:57 Anion Gap 15.0 (5-19) 02/26/23 15:57 BUN 11 mg/dL (8-23) 02/26/23 15:57 Creatinine 0.5 mg/dL (0.5-0.9) 02/26/23 15:57 GFR Calculation Not Reportable 02/26/23 15:57 Glucose 109 mg/dL (65-115) 02/26/23 15:57 Calculated Osmolality 294 mOsm/kg (285-295) 02/26/23 15:57 Calcium 9.6 mg/dL (8.5-10.5) 02/26/23 15:57 Total Bilirubin 0.4 mg/dL (0.15-1.2) 02/26/23 15:57 AST 20 U/L (0-32) 02/26/23 15:57 ALT < 5 U/L (0-33) 02/26/23 15:57 Alkaline Phosphatase 109 U/L (35-105) H 02/26/23 15:57 Troponin T Baseline 16 ng/L (0-10) H 02/26/23 15:57 Troponin T 120 Minute 25.43 ng/L (0-10) H 02/26/23 18:22 Delta Troponin T 9.43 ABS# (0-10) 02/26/23 18:22 Total Protein 7.1 g/dL (6.6-8.7) 02/26/23 15:57 Albumin 4.4 g/dL (3.5-5.2) 02/26/23 15:57 Globulin 2.7 g/dL (1.3-4.6) 02/26/23 15:57 Urine Color Yellow (Yellow) 02/26/23 15:30 Urine Appearance Clear (CLEAR) 02/26/23 15:30 Urine pH 6.5 (5-7) 02/26/23 15:30 Ur Specific [place] 1.015 (1.005-1.030) 02/26/23 15:30 Urine Protein Neg (Negative) 02/26/23 15:30 Urine Glucose (UA) Norm (Normal) 02/26/23 15:30 Urine Ketones 1+ (Negative) H 02/26/23 15:30 Urine Blood 2+ (Negative) H 02/26/23 15:30 Urine Nitrate Negative (Negative) 02/26/23 15:30 Urine Bilirubin Neg (Negative) 02/26/23 15:30 Urine Urobilinogen Norm mg/dL (Negative) 02/26/23 15:30 Ur Leukocyte Esterase Negative (Negative) 02/26/23 15:30 Urine RBC Rare /hpf (0-2) 02/26/23 15:30 Urine WBC None /hpf (0-5) 02/26/23 15:30 Ur Squamous Epith Cells None /hpf (0-5) 02/26/23 15:30 Amorphous Sediment Not Reportable 02/26/23 15:30 Urine Bacteria Trace /hpf (NONE) 02/26/23 15:30 Discharge Plan Discharge Patient Disposition: Placed in Observation Admit Provider: Lakshmi Iraheta Clinical Impression: Syncope and collapse, Hypokalemia Sign Out Sign Out Data: Patient Sign Out occurred on 02/26/23 at 18:43. Patient's care was discussed, and care was transferred from to Toney Babb MD. Coding Level of Care Code ED Multifocal Lens Assembler for Chg Fwd Documented by User: Toney Babb MD 03/07/23 03:35 HPI - Syncope General: Chief Complaint: Syncope Stated Complaint: Low BP, Fall, Lower stomach pains Time Seen by Provider: 02/26/23 15:54 PFSH ED PFSH: Medical History Atrial fibrillation Fall Fall in elderly patient GERD (gastroesophageal reflux disease) Hiatal hernia Hypertension Hypokalemia Multiple fractures of ribs of left side Parkinson disease Pulmonary nodule Syncope Syncope and collapse Social History Smoking and tobacco status: never smoked Alcohol intake: never Course Vital Signs: Vital signs: Vital Signs Temperature 98.5 F 02/28/23 11:14 Pulse Rate 74 02/28/23 12:14 Respiratory Rate 13 02/28/23 12:14 Blood Pressure 135/82 02/28/23 12:14 Pulse Oximetry 95 02/28/23 12:14 Oxygen Delivery Ia thod Room Air 02/28/23 11:14 MDM - Syncope Medical Decision Making 77-year-old female handed off to [place] by Dr. Gonzalez pending completion of ED evaluation. Laboratory studies reviewed with no significant hematologic abnormality. Mild hypoxemia with respiratory alkalosis on ABG. Metabolic panel with hyponatremia. Initial troponin mildly elevated with intermediate range 2-hour delta. No UTI. Hematuria of unclear etiology. CT imaging and x-rays were reviewed. I confirmed with [facility] that rib deformities are chronic, the patient does not have specific tenderness at the possible hairline posterior fracture. I discussed possible disposition options, initially the patient preferred to wait for 6-hour troponin and be discharged however subsequently changed her mind. Most likely etiology of patient's symptoms is unclear, syncope of uncertain etiology with intermediate range elevation in 2-hour delta troponin requiring further inpatient management for possible cardiac etiology. The results of ED evaluation were discussed with the patient including plan for admission due to requirement for level of care not available if discharged to prevent significant worsening/deterioration. Patient agreeable with plan. Discussed with hospitalist service who was agreeable to admit patient. Lab Data 02/28/23 04:52 02/28/23 04:[address] 02/26/23 15:57 IMPRESSION: 1. Negative for intracranial hemorrhage or mass effect. 2. Chronic bilateral occipital infarcts, similar to prior exam. 3. Moderate diffuse white matter disease likely reflecting chronic microvascular ischemic changes. Cervical Spine CT 02/26/23 17:05 IMPRESSION: No acute abnormality. Chest CT 02/26/23 17:05 IMPRESSION: No acute abnormality. Large hiatal hernia. Nodule measuring 2 mm in the right lower lobe.For patients at low risk (minimal or absent history of smoking and of other known risk factors), no routine follow-up is indicated. For patients at high risk (history of smoking or of other known risk factors), consider optional CT Chest at 12 months. (Reference: Daniel) References: Ifrahhojosemanuel Escobedo, et al. Guidelines for Management of Incidental Pulmonary Nodules Detected on CT Images: From the Fleischner Society 2017. Radiology. 2017;284(1):228-243. ADDENDUM: 02/26/23 [id number] This is an addendum to prior report on CT chest dated 02/26/2023 at 6:02 p.m.. There is a hairline deformity in the posterior left 9th rib which may represent a acute nondisplaced fracture. Laboratory Results WBC 5.7 10^3/uL (4.0-10.0) 02/26/23 15:57 RBC 4.40 10^6/uL (4.1-5.3) 02/26/23 15:57 Hgb 13.7 g/dL (11.5-15.3) 02/26/23 15:57 Hct 40.2 % (37.0-47.0) 02/26/23 15:57 MCV 91.4 fl (81-99) 02/26/23 15:57 MCH 31.1 pg (28.0-34.0) 02/26/23 15:57 MCHC 34.1 g/dL (30.0-36.0) 02/26/23 15:57 RDW 12.2 % (12.1-15.1) 02/26/23 15:57 Plt Count 268 10^3/cmm (130-400) 02/26/23 15:57 MPV 9.9 fL (7.4-10.4) 02/26/23 15:57 Neut % (Auto) 67.8 % 02/26/23 15:57 Lymph % (Auto) 20.4 % 02/26/23 15:57 [place] % (Auto) 9.8 % 02/26/23 15:57 Eos % (Auto) 1.2 % 02/26/23 15:57 Baso % (Auto) 0.4 % 02/26/23 15:57 Neut # (Auto) 3.87 10^3/uL (1.8-7.7) 02/26/23 15:57 Lymph # (Auto) 1.2 10^3/uL (0.8-4.8) 02/26/23 15:57 [place] # (Auto) 0.6 10^3/uL (0.2-0.9) 02/26/23 15:57 Eos # (Auto) 0.1 10^3/uL (0.0-0.8) 02/26/23 15:57 Baso # (Auto) 0.0 10^3/uL (0.0-0.1) 02/26/23 15:57 Nucleated RBC % (auto) 0 % 02/26/23 15:57 Nucleated RBCs # 0.0 /100WBC 02/26/23 15:57 Specimen Type Arterial 02/26/23 16:48 Sample Site Radial, left 02/26/23 16:48 ABG pH 7.49 (7.35-7.45) H 02/26/23 16:48 ABG pCO2 43.1 mmHg (35-45) 02/26/23 16:48 ABG pO2 67.6 mmHg (80.0-100.0) L 02/26/23 16:48 ABG HCO3 33.1 mmol/L (22-26) H 02/26/23 16:48 ABG O2 Saturation 95.2 02/26/23 16:48 ABG Base Excess 8.7 mmol/L (-2.0-2.0) H 02/26/23 16:48 Keanu Test Pos 02/26/23 16:48 A-a O2 Gradient 3.9 mmHg (5-10) L 02/26/23 16:48 Hematocrit 44.6 % (37-47) 02/26/23 16:48 Hgb O2 Saturation 94.0 % (95-100) L 02/26/23 16:48 Carboxyhemoglobin 1.2 %THgb (0.4-20.1) 02/26/23 16:48 Methemoglobin 0.1 % (0.4-1.5) L 02/26/23 16:48 Total Hemoglobin 14.5 g/dL (12-16) 02/26/23 16:48 Sodium 143.0 mmol/L (131-143) 02/26/23 16:48 Potassium 2.9 mmol/L (3.5-5.0) L 02/26/23 16:48 Glucose 98.0 mg/dL (70-115) 02/26/23 16:48 Ionized Calcium 1.2 mmol/L (1.1-1.4) 02/26/23 16:48 O2 Delivery Device Room air 02/26/23 16:48 FiO2 21.0 % 02/26/23 16:48 Reclamation Furnace Operator ID Monro 02/26/23 16:48 Sodium 142 mmol/L (136-145) 02/26/23 15:57 Potassium 3.0 mmol/L (3.5-5.1) L 02/26/23 15:57 Chloride 96 mmol/L (98-107) L 02/26/23 15:57 Carbon Dioxide 34 mmol/L (22-29) H 02/26/23 15:57 Anion Gap 15.0 (5-19) 02/26/23 15:57 BUN 11 mg/dL (8-23) 02/26/23 15:57 Creatinine 0.5 mg/dL (0.5-0.9) 02/26/23 15:57 GFR Calculation Not Reportable 02/26/23 15:57 Glucose 109 mg/dL (65-115) 02/26/23 15:57 Calculated Osmolality 294 mOsm/kg (285-295) 02/26/23 15:57 Calcium 9.6 mg/dL (8.5-10.5) 02/26/23 15:57 Total Bilirubin 0.4 mg/dL (0.15-1.2) 02/26/23 15:57 AST 20 U/L (0-32) 02/26/23 15:57 ALT < 5 U/L (0-33) 02/26/23 15:57 Alkaline Phosphatase 109 U/L (35-105) H 02/26/23 15:57 Troponin T Baseline 16 ng/L (0-10) H 02/26/23 15:57 Troponin T 120 Minute 25.43 ng/L (0-10) H 02/26/23 18:22 Delta Troponin T 9.43 ABS# (0-10) 02/26/23 18:22 Total Protein 7.1 g/dL (6.6-8.7) 02/26/23 15:57 Albumin 4.4 g/dL (3.5-5.2) 02/26/23 15:57 Globulin 2.7 g/dL (1.3-4.6) 02/26/23 15:57 Urine Color Yellow (Yellow) 02/26/23 15:30 Urine Appearance Clear (CLEAR) 02/26/23 15:30 Urine pH 6.5 (5-7) 02/26/23 15:30 Ur Specific [place] 1.015 (1.005-1.030) 02/26/23 15:30 Urine Protein Neg (Negative) 02/26/23 15:30 Urine Glucose (UA) Norm (Normal) 02/26/23 15:30 Urine Ketones 1+ (Negative) H 02/26/23 15:30 Urine Blood 2+ (Negative) H 02/26/23 15:30 Urine Nitrate Negative (Negative) 02/26/23 15:30 Urine Bilirubin Neg (Negative) 02/26/23 15:30 Urine Urobilinogen Norm mg/dL (Negative) 02/26/23 15:30 Ur Leukocyte Esterase Negative (Negative) 02/26/23 15:30 Urine RBC Rare /hpf (0-2) 02/26/23 15:30 Urine WBC None /hpf (0-5) 02/26/23 15:30 Ur Squamous Epith Cells None /hpf (0-5) 02/26/23 15:30 Amorphous Sediment Not Reportable 02/26/23 15:30 Urine Bacteria Trace /hpf (NONE) 02/26/23 15:30 Discharge Plan Discharge Patient Disposition: Placed in Observation Admit Provider: Lakshmi Iraheta Clinical Impression: Syncope and collapse, Hypokalemia Sign Out Sign Out Data: Patient Sign Out occurred on 02/26/23 at 18:43. Patient's care was discussed, and care was transferred from to Toney Babb MD. Coding Level of Care Code ED Multifocal Lens Assembler for Brandon Guzman
[2023-02-26 16:50] LABS: Add Urine Microscopic? YES; Bilirubin Urine Neg (Negative); Blood Urine 2+ (Negative); Glucose Urine UA Norm (Normal); Ketones Urine 1+ (Negative); Leukocyte Esterase Urine Negative (Negative); Nitrate Urine Negative (Negative); Protein Urine Neg (Negative); Specific Gravity, Urine 1.015 (1.005-1.030); Urine Appearance Clear (CLEAR); Urine Color Yellow (Yellow); Urobilinogen Urine Norm (Negative); pH Urine 6.5 (5-7)
[2023-02-26 16:55] LABS: Bacteria Urine TRACE /hpf; RBC Urine RARE /hpf (0-2)
[2023-02-26 17:00] LABS: ABG PCO2 43.1 mmHg (35-45); ABG PH Result 7.49 (7.35-7.45); Alveolar-Arterial Oxygen Gradi 3.9 mmHg (5-10); Arterial Blood Gas Hematocrit 44.6 % (37-47); Base Excess ABG 8.7 mmol/L (-2.0-2.0); Blood Gas Allen Test Pos; Blood Gas Sample Site Radial, left; Blood Gas Sample Type Arterial; Carboxyhemoglobin 1.2 %THgb (0.4-20.1); HCO3 ABG 33.1 mmol/L (22-26); Ionized Calcium Level - ABG 1.2 mmol/L (1.1-1.4); Methemoglobin 0.1 % (0.4-1.5); Oxygen Saturation ABG 95.2; PO2 ABG 67.6 mmHg (80.0-100.0); Potassium Level - ABG 2.9 mmol/L (3.5-5.0); Total Hemoglobin 14.5 g/dL (12-16)
[2023-02-26 17:03] LABS: Blood Gas Operator Identificat MONRO; Oxygen Device ROOM AIR
--- NOTE | 2023-02-26 17:05 | CTR_ITS ---
PROCEDURE INFORMATION: Exam: CT Cervical Spine Without Contrast Exam date and time: 02/26/2023 5:57 PM Age: 77 years old Clinical indication: Injury or trauma; Fall; Concussion/head injury TECHNIQUE: Imaging protocol: Computed tomography of the cervical spine without contrast. Radiation optimization: All CT scans at this facility use at least one of these dose optimization techniques: automated exposure control; mA and/or kV adjustment per patient size (includes targeted exams where dose is matched to clinical indication); or iterative reconstruction. REPORTING DATA: Count of CT and Cardiac NM exams in prior 12 months: This patient has received 4 known CTs and 0 known cardiac nuclear medicine studies in the 12 months prior to the current study. COMPARISON: CT head wo con* [id number] 02/26/2023 4:28 PM RADIATION DOSE METRICS: Total DLP (mGy-cm): 141.87 FINDINGS: Bones/joints: Multilevel degenerative disc disease.There is multilevel uncovertebral and facet hypertrophy with neural foramina narrowing. No acute fracture. No spondylolisthesis. Lungs: Lung apices are normal. Soft tissues: Unremarkable. CT/CT cervical spin wo con* [id number] IMPRESSION: No acute abnormality.
--- NOTE | 2023-02-26 17:05 | CTR_ITS ---
PROCEDURE INFORMATION: Exam: CT Chest With Contrast; Diagnostic Exam date and time: 02/26/2023 6:02 PM Age: 77 years old Clinical indication: Injury or trauma; Fall; Blunt trauma (contusions or hematomas) TECHNIQUE: Imaging protocol: Diagnostic computed tomography of the chest with contrast. Radiation optimization: All CT scans at this facility use at least one of these dose optimization techniques: automated exposure control; mA and/or kV adjustment per patient size (includes targeted exams where dose is matched to clinical indication); or iterative reconstruction. Contrast material: OMNI 350; Contrast volume: 75 ml; Contrast route: INTRAVENOUS (IV); REPORTING DATA: Count of CT and Cardiac NM exams in prior 12 months: This patient has received 5 known CTs and 0 known cardiac nuclear medicine studies in the 12 months prior to the current study. COMPARISON: CT angio chest PE protcl [id number] 09/14/2020 3:39 PM RADIATION DOSE METRICS: Total DLP (mGy-cm): 275.72 FINDINGS: Lungs: 2 mm nodule in the right lower lobe (series 3, image 23). No consolidation Pleural spaces: Unremarkable. No pneumothorax. No pleural effusion. Heart: Cardiomegaly. Lymph nodes: Calcified lymph nodes in the left hilum. Vasculature: IVC filter. Diaphragm: Large hiatal hernia. Spleen: Calcified granulomas in the spleen. Bones/joints: Diffuse demineralization of the bones. Vertebroplasty of the lower thoracic vertebra. Soft tissues: Unremarkable. CT/CT chest w con* [id number] IMPRESSION: No acute abnormality. Large hiatal hernia. Nodule measuring 2 mm in the right lower lobe.For patients at low risk (minimal or absent history of smoking and of other known risk factors), no routine follow-up is indicated. For patients at high risk (history of smoking or of other known risk factors), consider optional CT Chest at 12 months. (Reference: Daniel) References: Daniel H, et al. Guidelines for Management of Incidental Pulmonary Nodules Detected on CT Images: From the Fleischner Society 2017. Radiology. 2017;284(1):228-243.
[2023-02-26 17:11] LABS: Troponin(5th) Baseline 16 ng/L (0-10)
[2023-02-26 17:14] LABS: Alanine Aminotransferase < 5 U/L (0-33); Albumin Level 4.4 g/dL (3.5-5.2); Alkaline Phosphatase 109 U/L (35-105); Aspartate Amino Transferase 20 U/L (0-32); Blood Urea Nitrogen 11 mg/dL (8-23); Calcium 9.6 mg/dL (8.5-10.5); Carbon Dioxide 34 mmol/L (22-29); Chloride 96 mmol/L (98-107); Globulin 2.7 g/dL (1.3-4.6); Glucose 109 mg/dL (65-115); Osmolality Calculated 294 mOsm/kg (285-295); Sodium 142 mmol/L (136-145); Total Bilirubin 0.4 mg/dL (0.15-1.2); Total Protein 7.1 g/dL (6.6-8.7)
--- NOTE | 2023-02-26 17:57 | ECG_ITS ---
[facility] Test Date: 2023-02-26 Pat Name: Radha Martinez Department: Room: Gender: Female Application Security Specialist: : [id number] Requested By: Rito Carrera Order Number: [id number] Matilde MD: Mariam Allen M.D. Measurements Intervals [place] Rate: 82 P: 0 ME: 0 QRS: -11 QRSD: 80 T: -22 QT: 390 QTc: 458 Interpretive Statements ATRIAL FIBRILLATION LOW QRS VOLTAGE IN PRECORDIAL LEADS [QRS DEFLECTION < 1.0 mV IN CHEST LEADS] POSSIBLE ANTERIOR MYOCARDIAL INFARCTION , OF INDETERMINATE AGE [30 ms Q WAVE IN V3/V4, OR R < 0.2 mV IN V4] Compared to ECG 09/14/2020 16:56:47 Myocardial infarct finding now present Sinus tachycardia no longer present Short ME interval no longer present T-wave abnormality no longer present Possible ischemia no longer present Electronically Signed On 02-27-2023 2:24:41 CDT by Mariam Allen M.D. [email or web address]
[2023-02-26] MEDS: iohexol 350 mg/mL 500 mL Btl (per mL) IV (18:06)
[2023-02-26 18:57] LABS: Troponin 5 2HR 25.43 ng/L (0-10); Troponin 5 2HR Delta 9.43 ABS# (0-10)
[2023-02-26] MEDS: potassium chloride ER 20 mEq Tablet 40 MEQ PO (19:19)
--- NOTE | 2023-02-26 20:29 | PM.HP ---
Providers/Chief Complaint Admitting Physician: Lakshmi Iraheta MD Primary Care Provider: Julianna Mary NP Chief Complaint: Low BP, Fall, Lower stomach pains History of Present Illness Radha Martinez is a 77 year old female past medical history of Parkinson's disease presented to the hospital today for complaint of syncope. There were no preceding symptoms and apparently patient went down. Not sure if this fall was entirely mechanical in nature. She says she walks every day and last time she took a walk she fell all of a sudden and lost consciousness for a little bit after she fell. She did not experience any dizziness prior to the fall no other preceding symptoms. She lives alone and her daughter helps her with laundry and other than 90 she is able to do all her activities of daily living. She has had multiple falls before but does not remember exactly how many times but she has broken ribs in the past especially when she fell backwards. And 1 at the time she has fractured her pelvis in the past. Patient endorses loss of appetite and weight loss. She says she does not feel like cooking because she is afraid that she will fall when the stove is on. Now she weighs 116 pounds. Also endorses a history of stroke but does not member exactly however it is possibly 7 to 10 years ago when her Parkinson's was diagnosed. She believes she may be falling because of her Parkinson's but she is unsure. From time to time she will have a mild headache. She says when she takes clonidine she experiences confusion and feels weak but only takes it when she is hypertensive. Cannot give me any specific blood pressure values. Denies alcohol use, denies nicotine dependence. Goals of care were discussed. She is okay with ACLS medications and CPR however does not want intubation. She says if she cannot make her own medical decisions patient contact her granddaughter Aretha Martinez. In the ER head CT was done which was negative for intracranial hemorrhage or mass effect, chronic bilateral occipital infarct seen similar to prior exam, moderate diffuse white matter disease like reflecting chronic microvascular ischemic changes, cervical spine CT showed no acute abnormality. Chest CT shows no acute abnormality, has large hiatal hernia. Nodule measured 2 ?m in right lower lobe. Hairline deformity and posterior left ninth rib which may represent acute nondisplaced fracture. WBC 5.7, hemoglobin 13.7, platelet 268, sodium 142, potassium 3.0, creatinine 1.5, glucose 109, 2-hour delta troponin 9.43, UA positive for 1+ ketones, 2+ blood, negative leukocyte esterase, negative nitrates, trace bacteria. Vitals on arrival 140/89, respiratory rate 20, pulse 77, temperature 98.1. At home patient is on aspirin, metoprolol, Toprol, carbidopa-levodopa. Medications/Allergies Home Medications Medication Instructions Recorded Confirmed Last Taken Type benazepril 40 mg tablet 40 mg PO BID 09/14/20 02/26/23 02/26/23 History carbidopa 10 mg-levodopa 100 mg See Rx Instructions .Route .COMPLEX 11/09/20 02/26/23 02/26/23 History tablet aspirin 81 mg tablet,delayed 81 mg PO DAILY 06/10/21 02/26/23 02/26/23 History release metoprolol succinate 50 mg 50 mg PO QPM 06/10/21 02/26/23 02/25/23 History tablet,extended release 24 hr Calcium Gummy See Rx Instructions .Route .COMPLEX 02/26/23 02/26/23 02/26/23 History chlorthalidone 25 mg tablet 25 mg PO DAILY 02/26/23 02/26/23 02/26/23 09:00 History cholecalciferol (vitamin D3) 10 10 mcg PO DAILY 02/26/23 02/26/23 02/26/23 History mcg (400 unit) chewable tablet (Vitamin D3) clonidine HCl 0.1 mg tablet 0.1 mg PO BID 02/26/23 02/26/23 02/26/23 16:30 History famotidine 20 mg tablet (Pepcid) 20 mg PO DAILY 02/26/23 02/26/23 02/26/23 History metoprolol succinate 100 mg 100 mg PO QPM 02/26/23 02/26/23 02/25/23 History tablet,extended release 24 hr Allergies Allergy/AdvReac Type Severity Reaction Status Date / Time heparin Allergy Intermediate ADR-Confusi Verified 02/26/23 21:08 on PFSH Acute PFSH: Medical History (Updated 02/26/23 @ 21:51 by Toney Babb MD) Hypertension Social History (Updated 10/13/22 @ 17:10 by Rito Gonzalez DO) Smoking and tobacco status: never smoked Alcohol intake: never Vitals/I&O/Wt Last Vital Signs Temp 98.1 F 02/26/23 14:43 Pulse 75 02/26/23 19:41 Resp 19 H 02/26/23 19:41 BP 154/89 02/26/23 19:41 Pulse Ox 94 02/26/23 19:41 O2 Del Method 02/26/23 19:41 Weight last 48 hrs Weight 52.617 kg Physical Exam Narrative: General: Alert oriented x3, patient seen laying in bed appearing comfortable at this time, no acute respiratory distress, appears quite dehydrated and dry. HEENT: Normocephalic, atraumatic, EOMI, breathing comfortably on room air, chest wall tender to palpation around ninth rib area. Cardio: Regular rate rhythm, normal S1-S2, no gross murmurs identified Respiratory: Clear to auscultation bilaterally no wheezes no rhonchi GI: Abdomen soft, nontender, bowel sounds + Extremities: No edema bilateral lower extremities Neuro: Grossly intact, moves all 4 extremities Visible skin intact. Lots of wrinkling on skin noted and dry scaly skin on bilateral lower extremities. Data 02/26/23 15:57 02/26/23 15:57 A&P Assessment and plan (1) Hypertension: (2) Multiple fractures of ribs of left side: Qualifiers: Encounter type: initial encounter Fracture type: closed Qualified Code(s): S22.42XA - Multiple fractures of ribs, left side, initial encounter for closed fracture (3) Parkinson disease: (4) Fall in elderly patient: (5) Fall: (6) Syncope: (7) Hiatal hernia: (8) GERD (gastroesophageal reflux disease): (9) Pulmonary nodule: Plan #Syncope #Fall #Hairline ninth rib fracture #Parkinson's disease #Right lower lobe nodule 2 mm #Hypertension #GERD most likely secondary to large hiatal hernia #Elderly geriatric patient #Hypokalemia ? Check echocardiogram, ? Check orthostatic vitals ? Hold pantoprazole at this time, hold metoprolol at this time ? Placed on cardiac telemetry and monitor. Rule out bradycardia versus occult arrhythmia ? Continue Pepcid ? I would continue carbidopa-levodopa at this time ? Continue normal saline 75 cc/h ? Lidocaine patch for topical use for rib fractures ? Morphine 1 mg every 4 hours for pain if needed ? Repeat potassium ? Reviewed EKG and no gross ischemic changes noticed. ? Check vitamin B12, folic acid ? Fall precautions ? PT/OT ? Orthostatic vitals are positive. ? She will need to have a blood pressure log sheet to take to her primary care but we should stop clonidine indefinitely at this time. ? Monitor patient's symptoms after IV fluids and consider adjustment of Sinemet prior to discharge. ? Will need neurology follow-up at discharge. - Continue benzapril 40 BID SCDs, heparin SQ twice daily for DVT prophylaxis DNI however okay with CPR and ACLS medications Attestations Medical Necessity Statement*: Observation for syncope workup, fall. Other Coding Information Focused coding review requested Diagnoses Hypertension I10 Multiple fractures of ribs of left side S22.42XA Encounter type: initial encounter Fracture type: closed Parkinson disease G20 Fall in elderly patient R29.6 Fall W19.XXXA Syncope R55 Hiatal hernia K44.9 GERD (gastroesophageal reflux disease) K21.9 Pulmonary nodule R91.1
--- NOTE | 2023-02-26 20:43 | USCV_ITS ---
Radha Martinez Age: 77 Gender: F : 1945 Exam Date: 02/26/2023 21:23 Ordering Phys: Lakshmi Iraheta MD Technologist: APOLINAR Exam Location: [facility] – [place] Indication: syncope BP: 154 / 89 HR: 68 Rhythm: Atrial fibrillation Technical Quality: Adequate MEASUREMENTS (Male / Female) Normal Values 2D ECHO LV Diastolic Diameter PLAX 3.4 cm 4.2 - 5.9 / 3.9 - 5.3 cm LV Systolic Diameter PLAX 2.0 cm IVS Diastolic Thickness 1.6 cm 0.6 - 1.0 / 0.6 - 0.9 cm IVS Systolic Thickness 1.9 cm LVPW Diastolic Thickness 0.9 cm 0.6 - 1.0 / 0.6 - 0.9 cm LVPW Systolic Thickness 1.4 cm LVOT Diameter 1.7 cm LV Ejection Fraction 2D Teich 72.8 % LV Ejection Fraction MOD 2C 62.7 % LV Ejection Fraction 2C AL 64.5 % LA Diameter 3.4 cm LA Width 2.7 cm LA Height 5.2 cm RA Width 3.4 cm RA Height 5.8 cm Aorta at Sinotubular Diameter 2.8 cm IVC Diameter 1.3 cm M-MODE Aortic Annulus Diameter 3.0 cm LA Ao Ratio MM 1.1 MV E Point Septal Separation 0.0 cm DOPPLER AV Peak Velocity 98.0 cm/s LVOT Peak Velocity 76.0 cm/s AV Area Cont Eq vti 1.6 cm squared AV Area Cont Eq pk 1.8 cm squared MV Peak Velocity 105.0 cm/s MV Area PHT 4.4 cm squared Mitral E to A Ratio 208.8 MV E' Velocity 57.5 cm/s Mitral E to MV E' Ratio 9.8 Mitral E to LV E' Lateral Ratio 9.3 Mitral E to LV E' Septal Ratio 10.4 TR Peak Velocity 234.3 cm/s TR Peak Gradient 22.0 mmHg TV Peak E Velocity 57.0 cm/s Right Atrial Pressure 5.0 mmHg Pulmonary Artery Systolic Pressu 27.0 mmHg PV Peak Velocity 67.0 cm/s RV Acceleration Time 0.1 s RV Ejection Time 0.3 s RV AcT/ET 0.3 FINDINGS Left Ventricle LV systolic function is normal in size. LV systolic function is normal with EF of 60 to 65%. No regional wall motion abnormalities. Diastolic function is indeterminate because of atrial fibrillation. Right Ventricle Normal in size and function Right Atrium Normal in size Left Atrium Normal in size Mitral Valve Structurally normal mitral valve. Mild mitral regurgitation. Aortic Valve Structurally normal aortic valve. Trace aortic regurgitation. No significant stenosis. Tricuspid Valve Mild tricuspid regurgitation. Pulmonary artery systolic pressure is normal. Pulmonic Valve Not well-visualized. Pericardium Normal Aorta Normal in size IVC Appears to be normal CONCLUSIONS LV systolic function is normal with EF of 60-65% Diastolic function is indeterminate because of atrial fibrillation Mild mitral regurgitation Trace aortic regurgitation Mild tricuspid regurgitation Compared to prior echocardiogram from 2017, no significant changes are seen Kd Long MD (Electronically Signed) Final Date: 27 February 2023 11:20 S
--- NOTE | 2023-02-26 21:30 | PC.NURSE ---
Patient reports allergy to heparin. Grand daughter confirms. Dr. Iraheta notified. Order to not give heparin.
--- NOTE | 2023-02-26 21:57 | ECG_ITS ---
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 Measurements Intervals [place] Rate: 77 P: 0 ID: 0 QRS: 35 QRSD: 92 T: 25 QT: 392 QTc: 444 Interpretive Statements ATRIAL FIBRILLATION POSSIBLE ANTERIOR MYOCARDIAL INFARCTION , OF INDETERMINATE AGE [30 ms Q WAVE IN V3/V4, OR R < 0.2 mV IN V4] MODERATE T-WAVE ABNORMALITY, CONSIDER LATERAL ISCHEMIA [-0.1+ mV T-WAVE IN I/aVL/V5/V6] Compared to ECG 02/26/2023 17:29:32 T-wave abnormality now present Possible ischemia now present Myocardial infarct finding still present Electronically Signed On 02-27-2023 16:23:40 CDT by Kd Long M.D. [email or web address]
--- NOTE | 2023-02-26 22:00 | PC.NURSE ---
Patient declined carbidopa-levodopa as she has already taken her home meds this evening. This was confirmed by the patient's grand daughter who reviewed the patient's home meds with me.
[2023-02-26 22:35] LABS: Troponin 5 6HR 25.74 ng/L (0-10)
[2023-02-26 22:36] LABS: Troponin 5 6HR Delta 9.74 ng/L (0-12)
[2023-02-26 22:46] LABS: Thyroid Stimulating Hormone 1.68 uIU/mL (0.27-4.20)
[2023-02-27] VITALS (11 sets, daily range): BP systolic 84–174; BP diastolic 59–102; PULSE 54–104; RESP 14–23; O2SAT 94–95
[2023-02-27] MEDS: hyDRALAzine 20 mg/mL INJ 1 mL 10 MG IVP (02:42)
[2023-02-27 05:43] LABS: Basophils % 0.3 %; Eosinophils # 0.1 10^3/uL (0.0-0.8); Eosinophils % 1.6 %; Hematocrit 41.9 % (37.0-47.0); Hemoglobin 14.6 g/dL (11.5-15.3); Lymphocytes # 1.4 10^3/uL (0.8-4.8); Lymphocytes % 18.4 %; Mean Corpuscular HGB Conc 34.8 g/dL (30.0-36.0); Mean Corpuscular Hemoglobin 32.2 pg (28.0-34.0); Mean Corpuscular Volume 92.3 fl (81-99); Mean Platelet Volume 9.6 fL (7.4-10.4); Monocytes # 0.8 10^3/uL (0.2-0.9); Neutrophils # 5.23 10^3/uL (1.8-7.7); Neutrophils % 68.3 %; Nucleated Red Blood Cells % 0 %; Platelet Count 305 10^3/cmm (130-400); Red Blood Count 4.54 10^6/uL (4.1-5.3); Red Cell Distribution Width 12.4 % (12.1-15.1); White Blood Count 7.7 10^3/uL (4.0-10.0)
[2023-02-27 05:59] LABS: Alanine Aminotransferase 9 U/L (0-33); Albumin Level 4.1 g/dL (3.5-5.2); Alkaline Phosphatase 101 U/L (35-105); Anion Gap 10.4 (5-19); Aspartate Amino Transferase 17 U/L (0-32); Blood Urea Nitrogen 8 mg/dL (8-23); Calcium 9.3 mg/dL (8.5-10.5); Carbon Dioxide 35 mmol/L (22-29); Chloride 103 mmol/L (98-107); Globulin 2.7 g/dL (1.3-4.6); Glucose 98 mg/dL (65-115); Magnesium 1.8 mg/dL (1.7-2.3); Osmolality Calculated 298 mOsm/kg (285-295); Phosphorus 2.3 mg/dL (2.5-4.5); Potassium 3.4 mmol/L (3.5-5.1); Sodium 145 mmol/L (136-145); Total Bilirubin 0.5 mg/dL (0.15-1.2); Total Protein 6.8 g/dL (6.6-8.7)
[2023-02-27] MEDS: famotidine 20 mg Tablet PO ×2 (08:32→17:42)
[2023-02-27] MEDS: aspirin 81 mg EC Tablet PO (08:32)
--- NOTE | 2023-02-27 08:37 | PC.CHAP ---
Pastoral Care Encounter/Spiritual Assessment Type of Contact [] Declined obstetrics gyn physician visit [] Patient/Family/Request visit [] Outpatient visit [] Follow-up visit [] Physician referral [] Code/Alert [x] Routine visit [] Staff referral [] Actively dying [] Patient sleeping [] Family support [] [] Out of room [] Palliative care [] [x] Receiving care in room [] Pre-surgical visit [] Trauma [] Long length of stay [] ICU visit [] Other: Relational/Emotional Strength [] Patient feels connected with others/family/visitors/staff [] Distress [] Loneliness/isolation [] Abandonment Spirituality of Patient [] Person of Leonela [] Attends Restoration of their Leonela [] Believes in Prayer [] Reads Bible or Scientology materials [] There are Spiritual issues to be addressed [employer] Interventions [] Prayer [] Active listening [] Non-anxious presence [] Spiritual/emotional support [] Crisis/trauma care [] Spiritual counseling [] Bereavement support [] Provided bereavement packet [] Provided Bible/devotional materials [] Provided toy/stuffed animal, coloring book to patient or family member [] Provided Communion [] Anointing/[place] [] Salvation [] Completed spiritual assessment [] Other: Impact on Illness or Injury [] Angry [] Fearful [] Anxious [] Often cries [] Exhaustion [] Unable to work [] Unable to attend presybeterian [] Unable to walk/stand [] Unable to read [] Unable to drive [] Unable to eat/drink [] Unable to sleep [] Unable to be with family [] Patient intubated [] Other: Summary Time spent with patient
--- NOTE | 2023-02-27 08:47 | PC.NURSE ---
Patient refuses IV fluids. Patient encouraged to drink water.
--- NOTE | 2023-02-27 12:51 | P.PN_ITS ---
Subjective Subjective: Patient was seen and examined this morning, denied any chest pain, overnight vital sign has shown significantly positive orthostatic vitals. 2D echo done this morning has shown: Normal LV systolic function with EF of 60- 65, mild MR. EKG is showing A-fib. Patient is currently not a good candidate for long-term anticoagulation, given her history of recurrent fall, as well as age. Patient today worked well with physical therapy.She has been educated on orthostatic hypotension, and the utility of medical intervention as well as conservative approach which includes compression stockings. Patient has been instructed to keep herself well-hydrated, will continue with telemetry monitoring, continue orthostatic vital sign check every 12 hours. Medications: Medication Review Details: Generic Name Dose Route Start Last Admin Trade Name Freq PRN Reason Stop Dose Admin Aspirin 81 mg 02/27/23 09:00 02/27/23 08:32 Aspirin 81 Mg Ec Tablet PO 81 mg DAILY JEFFREY Administration Carbidopa/Levodopa 1 each 02/27/23 06:00 02/27/23 06:43 Carbidopa-Levodo pa 10-100 Mg Table t PO 1 each 0600,1200 JEFFREY Administration Carbidopa/Levodopa 0.5 each 02/26/23 21:30 02/26/23 22:41 Carbidopa-Levodo pa 10-100 Mg Table t PO Not Given QPM JEFFREY Famotidine 20 mg 02/27/23 09:00 02/27/23 08:32 Famotidine 20 Mg Tablet PO 20 mg BID JEFFREY Administration Sodium Chloride 1,000 mls @ 75 ml s/hr 02/26/23 20:45 02/27/23 08:46 Sodium Chloride 0.9% IV Not Given .[id number] JEFFREY Vitals/I&O/Wt Last Vital Signs Temp 98.1 F 02/26/23 14:43 Pulse 104 H 02/27/23 08:13 Resp 23 H 02/27/23 08:00 BP 120/65 02/27/23 08:00 Pulse Ox 94 02/27/23 08:13 O2 Del Method Room Air 02/27/23 08:13 02/26/23 02/27/23 02/27/23 22:59 06:59 14:59 Intake Total 100 / 100 360 / 360 Output Total 450 / 450 520 / 970 200 / 200 Balance -450 / -450 -420 / -870 160 / 160 Weight last 48 hrs Weight 52.617 kg Physical Exam Const: COMMON NORMALS: patient oriented x3 HENMT: COMMON NORMALS: normocephalic and atraumatic HEAD & SCALP: normocephalic and atraumatic Resp: COMMON NORMALS: clear to auscultation bilaterally EFFORT & INSPECTION: Yes symmetric chest movement AUSCULTATION: clear to auscultation bilaterally Cardio: COMMON NORMALS: regular rate, regular rhythm, S1 normal heart sound present, S2 normal heart sound present, No gallops present (Cardio), No murmurs present (Cardio), No rub (Cardio) and Peripheral pulses 2+ throughout RATE: regular rate RHYTHM: regular rhythm HEART SOUNDS: S1 normal heart sound present and S2 normal heart sound present PERIPHERAL PULSES: Peripheral pulses 2+ throughout GI: COMMON NORMALS: Normal to inspection, nondistended, normoactive bowel sounds present, Soft to palpation, non-tender, No hepatosplenomegaly present and no masses AUSCULTATION: Yes normoactive bowel sounds PALPATION: Yes Soft to palpation and Yes No hepatosplenomegaly present RECTAL EXAM: deferred Extremity: COMMON NORMALS: no clubbing, cyanosis or edema and no pedal edema Neuro: COMMON NORMALS: patient oriented x3 Data 02/27/23 05:06 02/27/23 05:06 A&P Assessment and plan (1) Hypertension: (2) Multiple fractures of ribs of left side: Qualifiers: Encounter type: initial encounter Fracture type: closed Qualified Code(s): S22.42XA - Multiple fractures of ribs, left side, initial encounter for closed fracture (3) Parkinson disease: (4) Fall in elderly patient: (5) Fall: (6) Syncope: (7) Hiatal hernia: (8) GERD (gastroesophageal reflux disease): (9) Pulmonary nodule: (10) Atrial fibrillation: (11) Hypokalemia: Plan #Syncope #Fall #Hairline ninth rib fracture #Parkinson's disease #Right lower lobe nodule 2 mm #Hypertension #GERD most likely secondary to large hiatal hernia #Elderly geriatric patient #Hypokalemia ? Check echocardiogram, ? Check orthostatic vitals ? Hold pantoprazole at this time, hold metoprolol at this time ? Placed on cardiac telemetry and monitor. Rule out bradycardia versus occult arrhythmia ? Continue Pepcid ? I would continue carbidopa-levodopa at this time ? Continue normal saline 75 cc/h ? Lidocaine patch for topical use for rib fractures ? Morphine 1 mg every 4 hours for pain if needed ? Repeat potassium ? Reviewed EKG and no gross ischemic changes noticed. ? Check vitamin B12, folic acid ? Fall precautions ? PT/OT ? Orthostatic vitals are positive. ? She will need to have a blood pressure log sheet to take to her primary care but we should stop clonidine indefinitely at this time. ? Monitor patient's symptoms after IV fluids and consider adjustment of Sinemet prior to discharge. ? Will need neurology follow-up at discharge. - Continue benzapril 40 BID SCDs, heparin SQ twice daily for DVT prophylaxis DNI however okay with CPR and ACLS medications Attestations Medical Necessity Statement*: Patient is in hospital for management of syncope, significant orthostatic hypotension. Coding Level of Care Code 56093 Diagnoses Hypertension I10 Multiple fractures of ribs of left side S22.42XA Encounter type: initial encounter Fracture type: closed Parkinson disease G20 Fall in elderly patient R29.6 Fall W19.XXXA Syncope R55 Hiatal hernia K44.9 GERD (gastroesophageal reflux disease) K21.9 Pulmonary nodule R91.1 Atrial fibrillation I48.91 Hypokalemia E87.6
[2023-02-27] MEDS: potassium chloride ER 20 mEq Tablet 40 MEQ PO (13:03)
[2023-02-27] MEDS: metoprolol succinate ER (24 HR) 50 mg Tablet PO (17:42)
[2023-02-28] VITALS (7 sets, daily range): BP systolic 112–166; BP diastolic 55–88; PULSE 56–89; RESP 13–20; TEMP 36.6–36.9; O2SAT 92–95
[2023-02-28 05:47] LABS: Basophils % 0.2 %; Eosinophils # 0.1 10^3/uL (0.0-0.8); Eosinophils % 2.5 %; Hematocrit 39.7 % (37.0-47.0); Hemoglobin 13.1 g/dL (11.5-15.3); Lymphocytes # 1.5 10^3/uL (0.8-4.8); Lymphocytes % 26.8 %; Mean Corpuscular Hemoglobin 31.2 pg (28.0-34.0); Mean Corpuscular Volume 94.5 fl (81-99); Mean Platelet Volume 9.6 fL (7.4-10.4); Monocytes # 0.6 10^3/uL (0.2-0.9); Monocytes % 10.5 %; Neutrophils # 3.31 10^3/uL (1.8-7.7); Neutrophils % 59.8 %; Nucleated Red Blood Cells % 0 %; Platelet Count 249 10^3/cmm (130-400); Red Cell Distribution Width 12.8 % (12.1-15.1); White Blood Count 5.5 10^3/uL (4.0-10.0)
[2023-02-28 06:04] LABS: Alanine Aminotransferase 9 U/L (0-33); Albumin Level 3.6 g/dL (3.5-5.2); Alkaline Phosphatase 74 U/L (35-105); Anion Gap 11.2 (5-19); Aspartate Amino Transferase 14 U/L (0-32); Blood Urea Nitrogen 17 mg/dL (8-23); Carbon Dioxide 32 mmol/L (22-29); Chloride 103 mmol/L (98-107); Globulin 2.7 g/dL (1.3-4.6); Glucose 84 mg/dL (65-115); Osmolality Calculated 297 mOsm/kg (285-295); Potassium 3.2 mmol/L (3.5-5.1); Sodium 143 mmol/L (136-145); Total Bilirubin 0.6 mg/dL (0.15-1.2); Total Protein 6.3 g/dL (6.6-8.7)
[2023-02-28 06:44] LABS: Folate Level 16.1 ng/mL (4.8-37.3)
[2023-02-28 07:04] LABS: Vitamin B12 202 pg/mL (232-1245)
[2023-02-28] MEDS: famotidine 20 mg Tablet PO (08:45)
[2023-02-28] MEDS: cholecalciferol (vitamin D3) 1,000 unit Tablet 1000 UNIT PO (08:45)
[2023-02-28] MEDS: aspirin 81 mg EC Tablet PO (08:45)
--- NOTE | 2023-02-28 09:59 | P.DS_ITS ---
Discharge Providers Date of Admission: 02/26/23 20:58 Date of Discharge: February 28, 2023 Attending Provider at Admission: Lakshmi Iraheta MD Attending Provider at Discharge: Cihno Lynch MD Primary Care Provider: Julianna Mary NP Diagnoses at Discharge Discharge Diagnosis (1) Hypertension: Status: Acute (2) Multiple fractures of ribs of left side: Status: Acute Qualifiers: Encounter type: initial encounter Fracture type: closed Qualified Code(s): S22.42XA - Multiple fractures of ribs, left side, initial encounter for closed fracture (3) Parkinson disease: Status: Acute (4) Fall in elderly patient: Status: Acute (5) Fall: Status: Acute (6) Syncope: Status: Acute (7) Hiatal hernia: Status: Acute (8) GERD (gastroesophageal reflux disease): Status: Acute (9) Pulmonary nodule: Status: Acute (10) Atrial fibrillation: Status: Acute (11) Hypokalemia: Status: Acute Reason for Visit Reason for Visit: Low BP, Fall, Lower stomach pains Hospital Course Hospital Course HPI:Lakshmi Iraheta MD Radha Martinez is a 77 year old female past medical history of Parkinson's disease presented to the hospital today for complaint of syncope.? There were no preceding symptoms and apparently patient went down.? Not sure if this fall was entirely mechanical in nature.? She says she walks every day and last time she took a walk she fell all of a sudden and lost consciousness for a little bit after she fell.? She did not experience any dizziness prior to the fall no other preceding symptoms.? She lives alone and her daughter helps her with laundry and other than 90 she is able to do all her activities of daily living.? She has had multiple falls before but does not remember exactly how many times but she has broken ribs in the past especially when she fell backwards.? And 1 at the time she has fractured her pelvis in the past.? Patient endorses loss of appetite and weight loss.? She says she does not feel like cooking because she is afraid that she will fall when the stove is on.? Now she weighs 116 pounds.? Also endorses a history of stroke but does not member exactly however it is possibly 7 to 10 years ago when her Parkinson's was diagnosed.? She believes she may be falling because of her Parkinson's but she is unsure.? From time to time she will have a mild headache.? She says when she takes clonidine she experiences confusion and feels weak but only takes it when she is hypertensive.? Cannot give me any specific blood pressure values.? Denies alcohol use, denies nicotine dependence.? Goals of care were discussed.? She is okay with ACLS medications and CPR however does not want intubation.? She says if she cannot make her own medical decisions patient contact her granddaughter Aretha Martinez. ?In the ER head CT was done which was negative for intracranial hemorrhage or mass effect, chronic bilateral occipital infarct seen similar to prior exam, moderate diffuse white matter disease like reflecting chronic microvascular ischemic changes, cervical spine CT showed no acute abnormality.? Chest CT shows no acute abnormality, has large hiatal hernia.? Nodule measured 2 ?m in right lower lobe.? Hairline deformity and posterior left ninth rib which may represent acute nondisplaced fracture.? WBC 5.7, hemoglobin 13.7, platelet 268, sodium 142, potassium 3.0, creatinine 1.5, glucose 109, 2-hour delta troponin 9.43, UA positive for 1+ ketones, 2+ blood, negative leukocyte esterase, negative nitrates, trace bacteria.? Vitals on arrival 140/89, respiratory rate 20, pulse 77, temperature 98.1.? At home patient is on aspirin, metoprolol, Toprol, carbidopa-levodopa. Hospital course: Patient was admitted for the management of syncope and collapse, fall secondary to syncope, hairline ninth rib fracture, positive orthostatic vital sign, during the hospital stay 2D echo was done:LV systolic function is normal with EF of 60- 65%,Diastolic function is indeterminate because of atrial?fibrillation,?Mild mitral regurgitation Trace aortic regurgitation,?Mild tricuspid regurgitation. Patient was also found to be in A-fib during the hospital stay, given the presence of syncope, possibility of underlying, sick sinus syndrome cannot be conclusively ruled out.For that reason patient has been discharged home on event monitor. Changes have also been made to patient's antihypertensive medication Clonidine has been kept on hold, BENZAPRIL has been kept on hold, metoprolol dose has also been adjusted she has just been discharged on metoprolol 50 p.o. daily, metoprolol 100 p.o. daily has been kept on hold, patient has been educated on Conservative management of orthostatic hypotension, she has also been asked to keep a blood pressure log, as well as a heart rate log, and see the primary care physician in a week time, at that point in time, adjustment to antihypertensive medications can be made, prior to the discharge patient was orthostatic negative, she had no similar episode during the hospital stay, she worked well with physical therapy. She was discharged home in stable condition., Physical Exam Const: COMMON NORMALS: patient oriented x3 HENMT: COMMON NORMALS: normocephalic and atraumatic HEAD & SCALP: normocephalic and atraumatic Resp: COMMON NORMALS: clear to auscultation bilaterally EFFORT & INSPECTION: Yes symmetric chest movement AUSCULTATION: clear to auscultation bilaterally Cardio: COMMON NORMALS: regular rate, regular rhythm, S1 normal heart sound present, S2 normal heart sound present, No gallops present (Cardio), No murmurs present (Cardio), No rub (Cardio) and Peripheral pulses 2+ throughout RATE: regular rate RHYTHM: regular rhythm HEART SOUNDS: S1 normal heart sound present and S2 normal heart sound present PERIPHERAL PULSES: Peripheral pulses 2+ throughout GI: COMMON NORMALS: Normal to inspection, nondistended, normoactive bowel sounds present, Soft to palpation, non-tender, No hepatosplenomegaly present and no masses AUSCULTATION: Yes normoactive bowel sounds PALPATION: Yes Soft to palpation and Yes No hepatosplenomegaly present RECTAL EXAM: deferred Extremity: COMMON NORMALS: no clubbing, cyanosis or edema and no pedal edema Neuro: COMMON NORMALS: patient oriented x3 Discharge Data Studies Completed and Pending Completed Studies During Hospitalization Category Date Time Status CT cervical spine wo con [CT cervical spin wo con* Cat Scan 02/26/23 17:05 Completed [id number]] Stat CT chest w con* [id number] Stat Cat Scan 02/26/23 17:[address] head wo con* [id number] Stat Cat Scan 02/26/23 15:57 Completed XR chest 1V portable [id number] Stat Exams 02/26/23 15:57 Completed CV. echo complete* [id number] Routine Ultrasound 02/26/23 20:43 Completed Radiology Impressions Head CT 02/26/23 15:57 IMPRESSION: 1. Negative for intracranial hemorrhage or mass effect. 2. Chronic bilateral occipital infarcts, similar to prior exam. 3. Moderate diffuse white matter disease likely reflecting chronic microvascular ischemic changes. Cervical Spine CT 02/26/23 17:05 IMPRESSION: No acute abnormality. Chest CT 02/26/23 17:05 IMPRESSION: No acute abnormality. Large hiatal hernia. Nodule measuring 2 mm in the right lower lobe.For patients at low risk (minimal or absent history of smoking and of other known risk factors), no routine follow-up is indicated. For patients at high risk (history of smoking or of other known risk factors), consider optional CT Chest at 12 months. (Reference: Daniel) References: Daniel Escobedo, et al. Guidelines for Management of Incidental Pulmonary Nodules Detected on CT Images: From the Fleischner Society 2017. Radiology. 2017;284(1):228-243. ADDENDUM: 02/26/231855 This is an addendum to prior report on CT chest dated 02/26/2023 at 6:02 p.m.. There is a hairline deformity in the posterior left 9th rib which may represent a acute nondisplaced fracture. Laboratory Results WBC 5.5 10^3/uL (4.0-10.0) 02/28/23 04:52 RBC 4.20 10^6/uL (4.1-5.3) 02/28/23 04:52 Hgb 13.1 g/dL (11.5-15.3) 02/28/23 04:52 Hct 39.7 % (37.0-47.0) 02/28/23 04:52 MCV 94.5 fl (81-99) 02/28/23 04:52 MCH 31.2 pg (28.0-34.0) 02/28/23 04:52 MCHC 33.0 g/dL (30.0-36.0) D 02/28/23 04:52 RDW 12.8 % (12.1-15.1) 02/28/23 04:52 Plt Count 249 10^3/cmm (130-400) 02/28/23 04:52 MPV 9.6 fL (7.4-10.4) 02/28/23 04:52 Neut % (Auto) 59.8 % 02/28/23 04:52 Lymph % (Auto) 26.8 % 02/28/23 04:52 [place] % (Auto) 10.5 % 02/28/23 04:52 Eos % (Auto) 2.5 % 02/28/23 04:52 Baso % (Auto) 0.2 % 02/28/23 04:52 Neut # (Auto) 3.31 10^3/uL (1.8-7.7) 02/28/23 04:52 Lymph # (Auto) 1.5 10^3/uL (0.8-4.8) 02/28/23 04:52 [place] # (Auto) 0.6 10^3/uL (0.2-0.9) 02/28/23 04:52 Eos # (Auto) 0.1 10^3/uL (0.0-0.8) 02/28/23 04:52 Baso # (Auto) 0.0 10^3/uL (0.0-0.1) 02/28/23 04:52 Nucleated RBC % (auto) 0 % 02/28/23 04:52 Nucleated RBCs # 0.0 /100WBC 02/28/23 04:52 Specimen Type Arterial 02/26/23 16:48 Sample Site Radial, left 02/26/23 16:48 ABG pH 7.49 (7.35-7.45) H 02/26/23 16:48 ABG pCO2 43.1 mmHg (35-45) 02/26/23 16:48 ABG pO2 67.6 mmHg (80.0-100.0) L 02/26/23 16:48 ABG HCO3 33.1 mmol/L (22-26) H 02/26/23 16:48 ABG O2 Saturation 95.2 02/26/23 16:48 ABG Base Excess 8.7 mmol/L (-2.0-2.0) H 02/26/23 16:48 Keanu Test Pos 02/26/23 16:48 A-a O2 Gradient 3.9 mmHg (5-10) L 02/26/23 16:48 Hematocrit 44.6 % (37-47) 02/26/23 16:48 Hgb O2 Saturation 94.0 % (95-100) L 02/26/23 16:48 Carboxyhemoglobin 1.2 %THgb (0.4-20.1) 02/26/23 16:48 Methemoglobin 0.1 % (0.4-1.5) L 02/26/23 16:48 Total Hemoglobin 14.5 g/dL (12-16) 02/26/23 16:48 Sodium 143.0 mmol/L (131-143) 02/26/23 16:48 Potassium 2.9 mmol/L (3.5-5.0) L 02/26/23 16:48 Glucose 98.0 mg/dL (70-115) 02/26/23 16:48 Ionized Calcium 1.2 mmol/L (1.1-1.4) 02/26/23 16:48 O2 Delivery Device Room air 02/26/23 16:48 FiO2 21.0 % 02/26/23 16:48 Customer Care Assistant ID [place] 02/26/23 16:48 Sodium 143 mmol/L (136-145) 02/28/23 04:52 Potassium 3.2 mmol/L (3.5-5.1) L 02/28/23 04:52 Chloride 103 mmol/L (98-107) 02/28/23 04:52 Carbon Dioxide 32 mmol/L (22-29) H 02/28/23 04:52 Anion Gap 11.2 (5-19) 02/28/23 04:52 BUN 17 mg/dL (8-23) 02/28/23 04:52 Creatinine 0.6 mg/dL (0.5-0.9) 02/28/23 04:52 GFR Calculation Not Reportable 02/28/23 04:52 Glucose 84 mg/dL (65-115) 02/28/23 04:52 Calculated Osmolality 297 mOsm/kg (285-295) H 02/28/23 04:52 Calcium 9.0 mg/dL (8.5-10.5) 02/28/23 04:52 Phosphorus 2.3 mg/dL (2.5-4.5) L 02/27/23 05:06 Magnesium 1.8 mg/dL (1.7-2.3) 02/27/23 05:06 Total Bilirubin 0.6 mg/dL (0.15-1.2) 02/28/23 04:52 AST 14 U/L (0-32) 02/28/23 04:52 ALT 9 U/L (0-33) 02/28/23 04:52 Alkaline Phosphatase 74 U/L (35-105) 02/28/23 04:52 Troponin T Baseline 16 ng/L (0-10) H 02/26/23 15:57 Troponin T 120 Minute 25.43 ng/L (0-10) H 02/26/23 18:22 Delta Troponin T 9.43 ABS# (0-10) 02/26/23 18:22 Troponin T Hi Sens 6Hr 25.74 ng/L (0-10) H 02/26/23 22:03 Troponin T Hi Sens 6Hr Delta 9.74 ng/L (0-12) 02/26/23 22:03 Total Protein 6.3 g/dL (6.6-8.7) L 02/28/23 04:52 Albumin 3.6 g/dL (3.5-5.2) 02/28/23 04:52 Globulin 2.7 g/dL (1.3-4.6) 02/28/23 04:52 Vitamin B12 202 pg/mL (232-1245) L 02/28/23 04:52 Folate 16.1 ng/mL (4.8-37.3) 02/28/23 04:52 TSH 1.68 uIU/mL (0.27-4.20) 02/26/23 22:03 Urine Color Yellow (Yellow) 02/26/23 15:30 Urine Appearance Clear (CLEAR) 02/26/23 15:30 Urine pH 6.5 (5-7) 02/26/23 15:30 Ur Specific [place] 1.015 (1.005-1.030) 02/26/23 15:30 Urine Protein Neg (Negative) 02/26/23 15:30 Urine Glucose (UA) Norm (Normal) 02/26/23 15:30 Urine Ketones 1+ (Negative) H 02/26/23 15:30 Urine Blood 2+ (Negative) H 02/26/23 15:30 Urine Nitrate Negative (Negative) 02/26/23 15:30 Urine Bilirubin Neg (Negative) 02/26/23 15:30 Urine Urobilinogen Norm mg/dL (Negative) 02/26/23 15:30 Ur Leukocyte Esterase Negative (Negative) 02/26/23 15:30 Urine RBC Rare /hpf (0-2) 02/26/23 15:30 Urine WBC None /hpf (0-5) 02/26/23 15:30 Ur Squamous Epith Cells None /hpf (0-5) 02/26/23 15:30 Amorphous Sediment Not Reportable 02/26/23 15:30 Urine Bacteria Trace /hpf (NONE) 02/26/23 15:30 Vitals Last Vital Signs Temp 98.5 F 02/28/23 07:14 Pulse 77 02/28/23 08:42 Resp 17 02/28/23 07:14 BP 115/65 02/28/23 08:42 Pulse Ox 95 02/28/23 07:14 O2 Del Method Room Air 02/28/23 07:14 Discharge Plan Discharge Patient Disposition: Home Condition: Stable Prescriptions: Continued carbidopa-levodopa 10-100 mg tablet See Rx Instructions .ROUTE .COMPLEX Rx Instructions: 1 tab orally QAM AND NOON AND HALF A TABLET QPM metoprolol succinate 50 mg tablet extended release 24 hr 50 mg PO QPM aspirin 81 mg Tablet,Delayed Release (Dr/Ec) 81 mg PO DAILY Pepcid 20 mg Tablet 20 mg PO DAILY Vitamin D3 10 mcg (400 unit) Tablet,Chewable 10 mcg PO DAILY Calcium Gummy See Rx Instructions .ROUTE .COMPLEX Rx Instructions: as directed chlorthalidone 25 mg Tablet 25 mg PO DAILY Held benazepril 40 mg tablet 40 mg PO BID Hold Instructions: Resume on 03/07/23. SEE PCP WITH B/P LOG BEFORE INITIATING metoprolol succinate 100 mg tablet extended release 24 hr 100 mg PO QPM Hold Instructions: Resume on 03/07/23. SEE PCP WITH B/P AND HR LOG BEFORE INITIATING clonidine HCl 0.1 mg Tablet 0.1 mg PO BID Hold Instructions: Resume on 03/07/23. SEE PCP WITH B/P LOG BEFORE INITIATING Discharge Orders: Discharge Order (Routine); Ordered 02/28/23 Ordered By: Chino Lynch Other Ambulatory Orders: MCT/Event Monitor 21 Days (Routine) Timeframe: 1 Week Facility: [facility] - Location: Radiology Ordered By: Chino Lynch Referrals: Julianna Mary NP [Primary Care Provider] - 03/06/23 10:00 am Patient Instructions: Metoprolol (By mouth) (Lopressor, Toprol XL), A-fib (Atrial Fibrillation) (DC), How to Take a Blood Pressure Reading (DC), Syncope in Older Adults (DC), Opioid Safety Discharge Attestations Time Spent in Discharge Care*: less than 30 min Quality Metrics Clinical Quality Measures [ No reported AMI, CVA or VTE this stay] Coding Level of Care Code Acute Code for Chg Fwd Diagnoses Hypertension I10 Multiple fractures of ribs of left side S22.42XA Encounter type: initial encounter Fracture type: closed Parkinson disease G20 Fall in elderly patient R29.6 Fall W19.XXXA Syncope R55 Hiatal hernia K44.9 GERD (gastroesophageal reflux disease) K21.9 Pulmonary nodule R91.1 Atrial fibrillation I48.91 Hypokalemia E87.6
== END 2023-02-28 12:38 | disposition home or self-care (01) ==
LOC: ER 20:23 → CSU 20:26
PROVIDERS: Family Medicine; Admitting Provider Internal Medicine; Emergency Provider Emergency Medicine; PCP Nurse Practitioner Family; Visit Provider Internal Medicine
DX: S22.42XA Multiple fractures of ribs, left side, initial encounter for closed fracture (principal); R55 Syncope and collapse; R09.02 Hypoxemia; I48.91 Unspecified atrial fibrillation; I08.1 Rheumatic disorders of both mitral and tricuspid valves; E87.1 Hypo-osmolality and hyponatremia; I10 Essential (primary) hypertension; G20 Parkinson's disease; K44.9 Diaphragmatic hernia without obstruction or gangrene; K21.9 Gastro-esophageal reflux disease without esophagitis; R91.1 Solitary pulmonary nodule; Z79.82 Long term (current) use of aspirin; W19.XXXA Unspecified fall, initial encounter
CPT/HCPCS: 36415; 36600; 70450; 71045; 71260; 72125; 80051; 80053; 81001; 81015; 82330; 82607; 82746; 82805; 83735; 84100; 84443; 84484; 85025; 93005; 93306; 96361; 96374; 96376; 97110; 97116; 97161; 97165; 99285; G0378; J0360; Q9967

== ENCOUNTER 2025-02-18 20:06 | Emergency (ER) | payer MEDICARE, SELFPAY ==
--- NOTE | 2025-02-18 20:09 | CTR_ITS ---
PROCEDURE INFORMATION: Exam: CT Head Without Contrast Exam date and time: 02/18/2025 8:33 PM Age: 79 years old Clinical indication: Injury or trauma; Fall; Blunt trauma (contusions or hematomas); Additional info: Fall, head injury TECHNIQUE: Imaging protocol: Computed tomography of the head without contrast. Radiation optimization: All CT scans at this facility use at least one of these dose optimization techniques: automated exposure control; mA and/or kV adjustment per patient size (includes targeted exams where dose is matched to clinical indication); or iterative reconstruction. COMPARISON: CT head wo con* [id number] 02/26/2023 4:28 PM RADIATION DOSE METRICS: Total DLP (mGy-cm): 923.2 FINDINGS: Brain: There are bilateral periventricular white matter and centrum semiovale hypodensities, consistent with chronic ischemic small vessel disease. Encephalomalacia of bilateral occipital lobes and left temporal lobe, from prior insult. Age related diffuse parenchymal volume loss. Old lacunar infarct in the right cerebellum. No recent infarct, intracranial bleed or mass effect. Cerebral ventricles: Ex vacuo dilatation of the ventricles. Paranasal sinuses: Mild mucosal disease of the left maxillary sinus. Mastoid air cells: Visualized mastoid air cells are well aerated. Orbital cavities: Post bilateral cataract surgery. Bones: Unremarkable. No acute fracture. Soft tissues: Unremarkable. CT/CT head wo con* [id number] IMPRESSION: No acute intracranial posttraumatic changes.
--- NOTE | 2025-02-18 20:09 | CTR_ITS ---
PROCEDURE INFORMATION: Exam: CT Cervical Spine Without Contrast Exam date and time: 02/18/2025 8:33 PM Age: 79 years old Clinical indication: Injury or trauma; Fall; Blunt trauma; Additional info: Fall, neck pain TECHNIQUE: Imaging protocol: Computed tomography of the cervical spine without contrast. Radiation optimization: All CT scans at this facility use at least one of these dose optimization techniques: automated exposure control; mA and/or kV adjustment per patient size (includes targeted exams where dose is matched to clinical indication); or iterative reconstruction. COMPARISON: CT cervical spin wo con* [id number] 02/26/2023 5:57 PM RADIATION DOSE METRICS: Total DLP (mGy-cm): 146.7 FINDINGS: Bones: The cervical spine demonstrates moderate degenerative changes at multiple levels. Demineralization of the visualized bones, limiting sensitivity for nondisplaced fractures. No acute fracture, compression deformity or spondylolisthesis. Mild curvature of the cervical spine convex to the left. Lungs: Bilateral apical fibrotic changes. Vasculature: There is mild atherosclerotic calcification of the carotid arteries. Soft tissues: Unremarkable. CT/CT cervical spin wo con* [id number] IMPRESSION: No acute posttraumatic changes in the cervical spine.
[2025-02-18 20:20] VITALS: BP 172/84; PULSE 95; TEMP 36.8; O2SAT 90
--- NOTE | 2025-02-18 20:41 | CTR_ITS ---
PROCEDURE INFORMATION: Exam: CT Lumbar Spine Without Contrast Exam date and time: 02/18/2025 8:40 PM Age: 79 years old Clinical indication: Injury or trauma; Fall; Blunt trauma (contusions or hematomas) TECHNIQUE: Imaging protocol: Computed tomography of the lumbar spine without contrast. Radiation optimization: All CT scans at this facility use at least one of these dose optimization techniques: automated exposure control; mA and/or kV adjustment per patient size (includes targeted exams where dose is matched to clinical indication); or iterative reconstruction. COMPARISON: CR XR lumbar spine 2-3V* [id number] 12/07/2020 10:53 AM demonstrating at that time new compression fracture of the L2 vertebral body with 30% vertebral height loss at the superior endplate mild retropulsion along with additional progressive compression of the L1 vertebral body with vertebral plana configuration. RADIATION DOSE METRICS: Total DLP (mGy-cm): 454.62 FINDINGS: Bones/joints: 40% anterosuperior endplate concave compression is suspected with superior endplate concavity. Prominent compressive changes are seen involving the L1 and L2 vertebral bodies suggesting slight increase in degree of compression at L2 in comparison with the earlier plain film of 2020. Also noted is interval vertebroplasty artifacts with methylmethacrylate at both these levels. The sagittal images demonstrate moderate kyphotic angulation centered in the upper lumbar region and corresponding with the aforementioned compression fractures. Generalized decreased bone density consistent osteopenia seen throughout. Slight angulation of the mid to distal 3rd of the sacrum is noted but this configuration is similar to the earlier plain films from 2020. L1-L2: Retropulsion of the L1 vertebral body is noted moderately narrowing the canal and mildly narrowing both neural foramina. L2-L3: No significant disc bulge or herniation. No severe spinal canal stenosis. No significant neural foraminal narrowing. L3-L4: Moderate canal narrowing is seen secondary to broad-based posterior disc bulging preservation of posterior disc concavity. Moderate degenerative facet/ligamentous changes contributes to canal narrowing. L4-L5: Marked canal narrowing is seen secondary to broad-based posterior disc bulging coupled with prominent degenerative facet/ligamentous changes. This is best seen on images 66 and 67 of series 5. Mild bilateral foraminal narrowing is noted due to the generalized disc bulging here. L5-S1: Mild to moderate broad-based posterior disc bulging is seen minimally eccentric to the left as observed to best effect on image 79 of series 5. This might involve the origin of the left S1 root as best seen in the aforementioned image this level. Coupled with degenerative facet/ligamentous changes there is a moderate degree of canal stenosis seen at this level. Also seen is [id number] foraminal narrowing felt to be mild in degree. Soft tissues: Partially visualized are prominent underlying chronic interstitial changes with components of the linear fibrosis involving both lower lungs. IVC umbrella is present and appears to be appropriately positioned. Punctate calcified granulomata are noted in the spleen. A prominent hiatal hernia is also observed. CT/CT lumbar spine wo con* [id number] IMPRESSION: 1. 40% acute L4 anterosuperior vertebral body compression fracture suspected. 2. Remote prominent compression fractures with vertebroplasty artifacts at L1 and L2. 3. Diffuse generalized decreased bone density consistent with osteopenia. 4. Additional chronic changes as noted above.
--- NOTE | 2025-02-18 22:28 | W.ED.FALL ---
HPI - Fall General: Chief Complaint: Fall Stated Complaint: fall hit head on cabinet Time Seen by Provider: 02/18/25 22:16 Source: patient and family Mode of arrival: wheelchair Limitations: no limitations History of Present Illness: Patient is a jaki 79-year-old female presents to ED today along with her family for evaluation following a fall. Patient states she fell earlier today and blamed this on getting old . She denies any chest pain, shortness of breath, palpitations, dizziness prior to her fall. He states she did strike her head. No LOC. She is not on anticoagulation. She is not complaining of a headache. She does have some lower back pain upon arrival but states this was present prior to the fall. She did sustain a small left elbow abrasion. Last tetanus is unknown but she is declining to update this today stating last time she got one made her deathly ill with vomiting and diarrhea. She is not having any neck pain. MD complaint: fall Onset (ago): hour(s) Fall from: standing Place fall occurred: home Loss of consciousness: None Prolonged down time: no Symptoms prior to fall: none Context: tripped/slipped Location of injury: head and back Severity: mild Associated symptoms-after fall: Denies abdominal pain, chest pain, headache(s), hematuria, lightheadedness or neck pain Related Data Home Medications ?Medication ?Instructions ?Recorded ?Confirmed benazepril 40 mg tablet 40 mg PO BID 09/14/20 02/26/23 Held on 02/28/23. Instructions: Resume on 03/07/23. SEE PCP WITH B/P LOG BEFORE INITIATING carbidopa 10 mg-levodopa 100 mg See Rx Instructions .Route .COMPLEX 11/09/20 02/26/23 tablet aspirin 81 mg tablet,delayed 81 mg PO DAILY 06/10/21 02/26/23 release metoprolol succinate 50 mg 50 mg PO QPM 06/10/21 02/26/23 tablet,extended release 24 hr Calcium Gummy See Rx Instructions .Route .COMPLEX 02/26/23 02/26/23 chlorthalidone 25 mg tablet 25 mg PO DAILY 02/26/23 02/26/23 cholecalciferol (vitamin D3) 10 10 mcg PO DAILY 02/26/23 02/26/23 mcg (400 unit) chewable tablet (Vitamin D3) clonidine HCl 0.1 mg tablet 0.1 mg PO BID 02/26/23 02/26/23 Held on 02/28/23. Instructions: Resume on 03/07/23. SEE PCP WITH B/P LOG BEFORE INITIATING famotidine 20 mg tablet (Pepcid) 20 mg PO DAILY 02/26/23 02/26/23 metoprolol succinate 100 mg 100 mg PO QPM 02/26/23 02/26/23 tablet,extended release 24 hr Held on 02/28/23. Instructions: Resume on 03/07/23. SEE PCP WITH B/P AND HR LOG BEFORE INITIATING Allergies Allergy/AdvReac Type Severity Reaction Status Date / Time heparin Allergy Intermediate ADR-Confusi Verified 02/18/25 20:37 on Review of Systems Eyes: Denies: change in vision, blurry vision, photophobia, eye discharge, floaters or seeing flashes ENMT: Denies: throat pain, odynophagia, ear or mastoid pain, ear discharge, nasal discharge, epistaxis or sinus pain Card: Denies: chest pain, palpitations, lightheadedness, syncope or pre-syncope Resp: Denies: dyspnea or pain on inspiration GI: Denies: abdominal pain : Denies: flank pain or hematuria Musc: Reports: back pain; Denies: neck pain, extremity pain or joint pain Skin/Breast: Reports: other (skin tear L elbow) Neuro: Denies: headache(s), numbness in extremities, weakness in extremities, sensory changes or dizziness PFS ED PFSH: Medical History Atrial fibrillation Hypokalemia Syncope and collapse Pulmonary nodule GERD (gastroesophageal reflux disease) Hiatal hernia Syncope Fall Fall in elderly patient Parkinson disease Hypertension Multiple fractures of ribs of left side Social History Smoking and tobacco/nicotine status: never used tobacco/nicotine Alcohol intake: never Physical Exam Const: COMMON NORMALS: no acute distress, average body habitus, patient oriented x3, no limitations, healthy appearing, alert and well nourished GENERAL APPEARANCE: cooperative ORIENTATION/CONSCIOUSNESS: Yes awake, Yes oriented to person, Yes oriented to place and Yes oriented to time HENMT: COMMON NORMALS: normocephalic, atraumatic and TM's normal bilaterally HEAD & SCALP: normal to inspection, normocephalic and atraumatic; no Levy's sign, no hematoma and no raccoon eyes FACE & SINUS: normal facial exam TYMPANIC MEMBRANE: TM's normal bilaterally MOUTH: other (no intraoral injuries noted) Eye: COMMON NORMALS: Equal, round and reactive pupils present and EOMs intact bilaterally GENERAL EYE: appearance normal, both eyes and all related structures and normal light reflex PUPIL: Yes Equal, round and reactive pupils present DIRECT OPHTHALMOSCOPY: Yes normal light reflex Neck/C-Spine: COMMON NORMALS: full ROM GENERAL: Yes normal visual inspection CERVICAL SPINE: Yes cervical ROM normal, No pain with cervical ROM, No Cervical spine tenderness, No step off deformity and No Paracervical muscle tenderness Chest: COMMONS NORMALS: normal inspection of the chest and normal palpation of entire chest wall Resp: COMMON NORMALS: normal respiratory effort and clear to auscultation bilaterally AUSCULTATION: clear to auscultation bilaterally Cardio: COMMON NORMALS: regular rate and regular rhythm RATE: regular rate RHYTHM: regular rhythm GI: COMMON NORMALS: Normal to inspection, nondistended, normoactive bowel sounds present, Soft to palpation, non-tender, No hepatosplenomegaly present and no masses INSPECTION: Yes normal to inspection and No abdominal wall ecchymosis AUSCULTATION: Yes normoactive bowel sounds PALPATION: Yes Soft to palpation and Yes No hepatosplenomegaly present Back/Pelvis: COMMON NORMALS: thoracic and lumbar spine normal to inspection and thoraco-lumbar ROM normal THORACIC SPINE/UPPER BACK: No thoracic spinal tenderness LUMBAR SPINE/LOWER BACK: Yes ROM limited and Yes lumbar spinal tenderness PELVIS: Yes buttocks normal and No sciatic notch tenderness SACRUM: no tenderness COCCYX: no tenderness Extremity: COMMON NORMALS: full ROM and capillary refill normal GENERAL: Yes normal exam except as noted LEFT UPPER EXTREMITY: Yes elbow joint (small skin tear L elbow-normal ROM) Left elbow: Yes neurovascular exam (normal) Neuro: FERCHO COMA SCALE: document GCS findings Fercho coma scale eye opening: Spontaneous Fercho coma scale verbal response: Orientated Fercho coma scale motor response: Obey commands [place] coma scale total score: 15 COMMON NORMALS: patient oriented x3, CN's II-XII intact bilaterally, moves all extremities, no focal motor deficits and no sensory deficits noted SENSORIUM/ORIENTATION: Yes alert, Yes oriented to person, Yes oriented to place and Yes oriented to time SPEECH: speech normal GAIT: Yes Normal gait present Skin: COMMON NORMALS: no rashes or lesions noted NARRATIVE SKIN EXAM: see above GENERAL SKIN EXAM: no rashes or lesions noted TRAUMA: no lacerations or abrasions Course Vital Signs: Vital signs: Vital Signs Temperature 98.3 F 02/18/25 20:20 Pulse Rate 95 02/18/25 20:20 Blood Pressure 172/84 02/18/25 20:20 Pulse Oximetry 90 02/18/25 20:20 Oxygen Delivery Me thod Room Air 02/18/25 20:20 MDM - Fall Medical Decision Making Patient is a 79-year-old female here following a fall. CT of her head and cervical spine are unremarkable. On her lumbar CT she does have a 40% acute L4 vertebral body compression fracture. No retropulsion noted. She will be referred to Dr. Sam for evaluation and risks versus benefits of a kyphoplasty. Skin tear was cleaned and dressed. She is declining a tetanus. Patient stable for discharge. Recommend she follow-up with her primary care provider. Return ED precautions discussed. Medical Records I reviewed the patient's medical records. Lab Data Radiology Impressions Cervical Spine CT 02/18/25 20:09 IMPRESSION: No acute posttraumatic changes in the cervical spine. Head CT 02/18/25 20:09 IMPRESSION: No acute intracranial posttraumatic changes. Lumbar Spine CT 02/18/25 20:41 IMPRESSION: 1. 40% acute L4 anterosuperior vertebral body compression fracture suspected. 2. Remote prominent compression fractures with vertebroplasty artifacts at L1 and L2. 3. Diffuse generalized decreased bone density consistent with osteopenia. 4. Additional chronic changes as noted above. All radiology interpretation(s) finalized by discharge Discharge Plan Discharge Patient Disposition: Home Clinical Impression: Closed compression fracture of L4 vertebra, Skin tear of left elbow without complication, Fall, Minor closed head injury Condition: Stable Prescriptions: No Action carbidopa-levodopa 10-100 mg tablet See Rx Instructions .ROUTE .COMPLEX Rx Instructions: 1 tab orally QAM AND NOON AND HALF A TABLET QPM benazepril 40 mg tablet 40 mg PO BID metoprolol succinate 50 mg tablet extended release 24 hr 50 mg PO QPM aspirin 81 mg Tablet,Delayed Release (Dr/Ec) 81 mg PO DAILY metoprolol succinate 100 mg tablet extended release 24 hr 100 mg PO QPM Pepcid 20 mg Tablet 20 mg PO DAILY Vitamin D3 10 mcg (400 unit) Tablet,Chewable 10 mcg PO DAILY Calcium Gummy See Rx Instructions .ROUTE .COMPLEX Rx Instructions: as directed clonidine HCl 0.1 mg Tablet 0.1 mg PO BID chlorthalidone 25 mg Tablet 25 mg PO DAILY Discharge Orders: Discharge ED (Routine); Ordered 02/18/25 Ordered By: Eugenie Mccloud Referrals: Julianna Mary, [facility] [Primary Care Provider] - Activity Restrictions/Additional Instructions: As we discussed, CT of her head was unremarkable. CT of her cervical/neck was unremarkable. CT of her lumbar spine showing an L4 compression fracture. We spoke about following up with Dr. Sam for this for evaluation for possible kyphoplasty. Case management should reach out to you tomorrow or early next week to help set you up with this follow-up appointment. Please continue to keep the elbow skin tear clean and dressed. She can follow-up with primary care next week for reevaluation. You may return to the emergency department at anytime for any further concerns or any symptoms that were not addressed on today's visit. Print Language: Malay Coding Level of Care Code ED Risk Management Analyst for Brandon Guzman
--- NOTE | 2025-02-19 07:08 | DCPLANNER ---
messaged ortho for er f/u
== END 2025-02-18 23:19 | disposition home or self-care (01) ==
PROVIDERS: Emergency Provider Physician Assistant; PCP Nurse Practitioner Family
DX: S32.040A Wedge compression fracture of fourth lumbar vertebra, initial encounter for closed fracture (principal); S51.012A Laceration without foreign body of left elbow, initial encounter; S09.8XXA Other specified injuries of head, initial encounter; W19.XXXA Unspecified fall, initial encounter; Z79.82 Long term (current) use of aspirin; I10 Essential (primary) hypertension
CPT/HCPCS: 70450; 72125; 72131; 99284

== ENCOUNTER → 2025-03-12 08:33 | Outpatient (BNVA) | payer MEDICARE, SELFPAY | PROVIDERS: PCP Nurse Practitioner Family; Visit Provider Nurse Practitioner Family | DX: I87.2 Venous insufficiency (chronic) (peripheral) (principal); L82.1 Other seborrheic keratosis; L57.8 Other skin changes due to chronic exposure to nonionizing radiation; L81.4 Other melanin hyperpigmentation; D22.39 Melanocytic nevi of other parts of face; L57.0 Actinic keratosis | CPT/HCPCS: 17000; 99203 ==

== ENCOUNTER 2025-03-15 10:36 | Inpatient (IN) | payer MEDICARE, SELFPAY ==
[2025-03-15] VITALS (13 sets, daily range): BP systolic 106–193; BP diastolic 62–98; PULSE 64–91; RESP 15–33; TEMP 37.3–37.9; O2SAT 90–95; BMI 20.3
--- NOTE | 2025-03-15 10:58 | XRR_ITS ---
PROCEDURE INFORMATION: Exam: XR Left Elbow Exam date and time: 03/15/2025 11:05 AM Age: 79 years old Clinical indication: Injury or trauma; Fall; Blunt trauma (contusions or hematomas); Elbow; Left TECHNIQUE: Imaging protocol: Radiologic exam of the left elbow. Views: 3 or more views. COMPARISON: CR XR hand LT min 3V* [id number] 03/15/2025 11:03 AM FINDINGS: Bones/joints: Normal. Soft tissues: Possible laceration along the dorsal aspect of the proximal forearm.. XR/XR elbow LT min 3V* [id number] IMPRESSION: No acute osseous abnormality.
--- NOTE | 2025-03-15 10:58 | XRR_ITS ---
PROCEDURE INFORMATION: Exam: XR Left Hand Exam date and time: 03/15/2025 11:03 AM Age: 79 years old Clinical indication: Injury or trauma; Fall; Blunt trauma (contusions or hematomas); Hand; Left TECHNIQUE: Imaging protocol: Radiologic exam of the left hand. Views: 3 or more views. COMPARISON: No relevant prior studies available. FINDINGS: Bones/joints: The fingers are held in flexion which limits evaluation. No dislocation or evidence of acute fracture. Soft tissues: Normal. XR/XR hand LT min 3V* [id number] IMPRESSION: No definite acute osseous abnormality, though examination limited by hand position.
--- NOTE | 2025-03-15 11:25 | W.ED.FALL ---
HPI - Fall General: Chief Complaint: Fall Stated Complaint: fall Time Seen by Provider: 03/15/25 10:57 History of Present Illness: 79-year-old female has a history of Parkinson's presents after a fall at home. Patient has Parkinson's usually she uses a walker. She had multiple falls in the past she is feeling members at the bedside states she fell couple weeks ago as well that time she had some pain to her tailbone into her low back she fell again this morning landing forward catching herself partially in her left arm she has skin tears to the dorsum of her left hand and at that lateral portion of the left elbow. She hit her chest she has a little bit of pain there she did not strike her head she denies any neck pain there is no loss of consciousness. Associated symptoms-after fall: Denies abdominal pain, chest pain or neck pain Related Data Home Medications ?Medication ?Instructions ?Recorded ?Confirmed benazepril 20 mg tablet 20 mg PO DAILY 03/15/25 03/15/25 carbidopa 25 mg-levodopa 100 mg 2 tab PO TID 03/15/25 03/15/25 tablet chlorthalidone 25 mg tablet 25 mg PO DAILY 03/15/25 03/15/25 citalopram 20 mg tablet 20 mg PO DAILY 03/15/25 03/15/25 metoprolol succinate 50 mg 50 mg PO DAILY 03/15/25 03/15/25 tablet,extended release 24 hr potassium chloride 20 mEq 20 meq PO DAILY 03/15/25 03/15/25 tablet,extended release(part/cryst) (Klor-Con M) triamcinolone acetonide 0.025 % 1 applic topical BID 03/15/25 03/15/25 topical cream Allergies Allergy/AdvReac Type Severity Reaction Status Date / Time heparin AdvReac Intermediate ADR-Confusi Verified 03/15/25 14:47 on Review of Systems Const: Denies: fever(s) or chills Card: Denies: chest pain Resp: Denies: dyspnea GI: Denies: abdominal pain : Denies: dysuria, urinary frequency or urinary urgency Musc: Denies: neck pain or back pain Skin/Breast: Denies: rash PFSH ED PFSH: Medical History (Updated 03/15/25 @ 15:57 by Rito Gonzalez DO) Hypokalemia History of pulmonary embolism 2020 PE with shock, got TPA, transferred to [facility] for thrombectomy consideration, got IVC filter, poor candidate for anticoagulation due to falls Parkinson disease Hypertension Osteoporosis History of vertebral compression fracture L4, L1, L2 History of rib fracture multiple on left side from a fall History of pelvic fracture History of falling Atrial fibrillation noted on 2 EKGs in 02/2023 hospital stay Pulmonary nodule left base GERD (gastroesophageal reflux disease) Hiatal hernia Syncope Surgical History (Updated 03/15/25 @ 15:20 by Laura Lopez MD) S/P insertion of IVC (inferior vena caval) filter (2019) History of kyphoplasty Social History Smoking and tobacco/nicotine status: never used tobacco/nicotine Alcohol intake: never Physical Exam Const: COMMON NORMALS: no acute distress GENERAL APPEARANCE: cooperative and comfortable ORIENTATION/CONSCIOUSNESS: Yes awake, Yes oriented to person, Yes oriented to place and Yes oriented to time HENMT: COMMON NORMALS: normocephalic, atraumatic and hearing grossly normal bilaterally HEAD & SCALP: normocephalic and atraumatic Resp: COMMON NORMALS: normal respiratory effort, No retractions, No use of accessory muscles and clear to auscultation bilaterally AUSCULTATION: clear to auscultation bilaterally Cardio: COMMON NORMALS: regular rate, regular rhythm and No murmurs present (Cardio) RATE: regular rate RHYTHM: regular rhythm GI: COMMON NORMALS: Soft to palpation and No hepatosplenomegaly present AUSCULTATION: Yes normoactive bowel sounds PALPATION: Yes Soft to palpation, No Tenderness to palpation present (GI), No Guarding due to palpation present (GI) and Yes No hepatosplenomegaly present Extremity: COMMON NORMALS: normal to inspection, capillary refill normal, no clubbing, cyanosis or edema, no calf tenderness and no pedal edema Neuro: SENSORIUM/ORIENTATION: Yes oriented to person, Yes oriented to place and Yes oriented to time Skin: OTHER: Skin tears at the lateral aspect the left elbow and the dorsum of the left hand Course Vital Signs: Vital signs: Vital Signs Temperature 99.1 F 03/15/25 10:43 Pulse Rate 76 03/15/25 15:00 Respiratory Rate 16 03/15/25 10:43 Blood Pressure 153/77 03/15/25 15:00 Pulse Oximetry 91 04/28/25 15:00 Oxygen Delivery Me thod Nasal Cannula 03/15/25 15:00 Oxygen Flow Rate 2 03/15/25 15:00 MDM - Fall Medical Decision Making X-ray shows pneumonia CT of the lumbar spine shows patient still has an inferior vena cava filter in place there is a new T12 compression fraction 20% with no retropulsion to. Patient is requiring antibiotics started on ceftriaxone and Zithromax [place] possible admit. She is also hypokalemic. At first she did not want to take the p.o. potassium. Eventually we did convince her to take that I am concerned that if she does the IV it would burn some months would be intolerable. Medical Records I reviewed the patient's medical records. Lab Data I reviewed the patient's lab results. 03/15/25 12:11 03/15/25 12:11 Radiology Impressions Elbow X-Ray 03/15/25 10:58 IMPRESSION: No acute osseous abnormality. Hand X-Ray 03/15/25 10:58 IMPRESSION: No definite acute osseous abnormality, though examination limited by hand position. Lumbar Spine CT 03/15/25 11:36 IMPRESSION: 1. New mild compression deformity of T12 by approximately 20% without retropulsion. New since 02/18/2025. 2. Prior vertebroplasties with chronic fractures at L1 and L2. 3. Stable mild compression deformity of L4. 4. Multilevel areas of central and foraminal stenosis due to disc, facet and ligamentum flavum hypertrophy. Similar to the prior study of 02/18/2025. 5. Mild encroachment upon the thecal sac at L1 due to retropulsion of the vertebral body. No change. Chest X-Ray 03/15/25 11:37 IMPRESSION: New left basilar airspace disease concerning for pneumonia. Laboratory Results WBC 9.30 10^3/uL (3.29-11.43) 03/15/25 12:11 RBC 4.19 10^6/uL (3.85-5.65) 03/15/25 12:11 Hgb 13.10 g/dL (11.27-16.99) 03/15/25 12:11 Hct 40.2 % (36-47) 03/15/25 12:11 MCV 95.9 fl (85-98) 03/15/25 12:11 MCH 31.3 pg (27-33) 03/15/25 12:11 MCHC 32.6 g/dL (30-55) 03/15/25 12:11 RDW 12.0 % (12.1-15.1) L 03/15/25 12:11 Plt Count 199 10^3/cmm (157-399) 03/15/25 12:11 MPV 9.8 fL (7.4-10.4) 03/15/25 12:11 Neut % (Auto) 86.4 % 03/15/25 12:11 Lymph % (Auto) 7.1 % 03/15/25 12:11 [place] % (Auto) 5.2 % 03/15/25 12:11 Eos % (Auto) 0.2 % 03/15/25 12:11 Baso % (Auto) 0.1 % 03/15/25 12:11 Neut # (Auto) 8.04 10^3/uL (1.8-7.7) H 03/15/25 12:11 Lymph # (Auto) 0.7 10^3/uL (0.8-4.8) L 03/15/25 12:11 [place] # (Auto) 0.5 10^3/uL (0.2-0.9) 03/15/25 12:11 Eos # (Auto) 0.0 10^3/uL (0.0-0.8) 03/15/25 12:11 Baso # (Auto) 0.0 10^3/uL (0.0-0.1) 03/15/25 12:11 Nucleated RBC % (auto) 0 % 03/15/25 12:11 Nucleated RBCs # 0.0 /100WBC 03/15/25 12:11 Sodium 136 mmol/L (136-145) 03/15/25 12:11 Potassium 2.7 mmol/L (3.5-5.1) L* 03/15/25 12:11 Chloride 93 mmol/L (98-107) L 03/15/25 12:11 Carbon Dioxide 33 mmol/L (22-29) H 03/15/25 12:11 Anion Gap 12.7 (5-19) 03/15/25 12:11 BUN 15 mg/dL (8-23) 03/15/25 12:11 Creatinine 0.5 mg/dL (0.5-0.9) 03/15/25 12:11 GFR Calculation Not Reportable 03/15/25 12:11 Glucose 96 mg/dL (65-115) 03/15/25 12:11 Calculated Osmolality 283 mOsm/kg (285-295) L 03/15/25 12:11 Lactic Acid 0.9 mmol/L (0.5-2.2) 03/15/25 12:11 Calcium 9.5 mg/dL (8.5-10.5) 03/15/25 12:11 Magnesium 1.7 mg/dL (1.7-2.3) 03/15/25 12:11 Total Bilirubin 1.1 mg/dL (0.15-1.2) 03/15/25 12:11 AST 17 U/L (0-32) 03/15/25 12:11 ALT < 5 U/L (0-33) 03/15/25 12:11 Alkaline Phosphatase 131 U/L (35-105) H 03/15/25 12:11 NT-Pro-B Natriuret Pep 256 pg/mL (0-450) 03/15/25 12:11 Total Protein 6.9 g/dL (6.6-8.7) 03/15/25 12:11 Albumin 4.0 g/dL (3.5-5.2) 03/15/25 12:11 Globulin 2.9 g/dL (1.3-4.6) 03/15/25 12:11 Influenza A (PCR) Invalid (Negative) 03/15/25 13:45 Influenza Type B (PCR) Invalid (Negative) 03/15/25 13:45 RSV (PCR) Invalid (Negative) 03/15/25 13:45 SARS-CoV-2 (PCR) Invalid (Negative) 03/15/25 13:45 All radiology interpretation(s) finalized by discharge Discharge Plan Discharge Patient Disposition: Admitted As Inpatient Admit Provider: Laura Lopez Clinical Impression: LLL pneumonia, Parkinson disease, Hypokalemia, Frequent falls, Osteoporosis, Presence of IVC filter, Multiple skin tears, T12 compression fracture Condition: Stable Coding Level of Care Code ED Needle Loom Operator Helper for Brandon Guzman
--- NOTE | 2025-03-15 11:36 | CT_ITS ---
WS: [id number] CT LUMBAR SPINE, noncontrast. HISTORY: Pain multiple falls TECHNIQUE: Contiguous 2.0 mm axial imaging are performed. Sagittal and coronal reformats are submitted and reviewed. All CT scans at [facility] use at least one of these dose optimization techniques: automated exposure control; mA and/or kV adjustment per patient size (includes targeted exams where dose is matched to clinical indication); or iterative reconstruction. IV contrast: None DLP: 427.34 mGy.cm COMPARISON: CT 02/18/2025 Severe osteopenia. Marked increase in lumbar lordosis. Prior vertebroplasties at L1 and L2. No change in the overall configurations of the vertebral bodies. New mild compression deformity of T12. Stable mild anterior wedging of L4. L1-2: L1 retropulsion encroaching upon the thecal sac. Moderate stenosis central and subarticular recess. Similar to the prior study. L2-3: Annular disc bulging and osteophytic ridging. L3-4: Annular disc bulging with central canal narrowing. Moderate degenerative facet and ligamentous flavum changes. Moderate central and foraminal stenosis. L4-5: Diffuse annular disc bulging encroaching upon the ventral thecal sac with ligamentum flavum and facet arthritis. Moderate central and bilateral foraminal stenosis. L5-S1: Mild to moderate broad-based disc protrusion. Disc protrusion eccentric to the LEFT. Mild contact on the S1 nerve roots and mild bilateral foraminal stenosis. Osteopenia. No sacral fractures are identified. Dependent changes at the lung bases. Stomach is at least partially intrathoracic. Nonobstructing renal calcifications. IVC filter. CT/CT lumbar spine wo con* [id number] IMPRESSION: 1. New mild compression deformity of T12 by approximately 20% without retropul vanessa. New since 02/18/2025. 2. Prior vertebroplasties with chronic fractures at L1 and L2. 3. Stable mild compression deformity of L4. 4. Multilevel areas of central and foraminal stenosis due to disc, facet and l igamentum flavum hypertrophy. Similar to the prior study of 02/18/2025. 5. Mild encroachment upon the thecal sac at L1 due to retropulsion of the vert ebral body. No change.
--- NOTE | 2025-03-15 11:37 | ECG_ITS ---
[facility]25[facility] Pat Name: Radha Martinez Department: Room: Gender: Female Rn Eligibility: : 1945 Requested By: Rito Carrera Order Number: [id number] Reading MD: RYLEY BARBOUR Measurements Intervals [place] Rate: 66 P: 16 [place]: 160 QRS: -29 QRSD: 92 T: -3 QT: 408 QTc: 431 Interpretive Statements SINUS RHYTHM BORDERLINE LEFT AXIS DEVIATION [QRS AXIS < -20] LOW QRS VOLTAGE IN PRECORDIAL LEADS [QRS DEFLECTION < 1.0 mV IN CHEST LEADS] PATTERN CONSISTENT WITH PULMONARY DISEASE Compared to ECG 02/27/2023 02:35:45 Low QRS voltage now present Atrial fibrillation no longer present Myocardial infarct finding no longer present T-wave abnormality no longer present Possible ischemia no longer present Electronically Signed On 03-15-2025 20:58:06 CDT by RYLEY BARBOUR [email or web address]
--- NOTE | 2025-03-15 11:37 | XRR_ITS ---
PROCEDURE INFORMATION: Exam: XR Chest Exam date and time: 03/15/2025 11:47 AM Age: 79 years old Clinical indication: Injury or trauma; Fall; Blunt trauma (contusions or hematomas); Prior surgery; Surgery date: 6+ months; Surgery type: Pacer; Additional info: Pain after fall TECHNIQUE: Imaging protocol: Radiologic exam of the chest. Views: 1 view. COMPARISON: CT chest w con* [id number] 02/26/2023 6:02 PM FINDINGS: Limitations: Patient is rotated to the left. Lungs: New left basilar airspace disease concerning for pneumonia. Pleural spaces: Unremarkable. No pleural effusion. No pneumothorax. Heart/Mediastinum: Unremarkable. No cardiomegaly. Bones/joints: Multiple chronic left rib fractures with extensive chest wall deformity, similar to prior. XR/XR chest 1V portable [id number] IMPRESSION: New left basilar airspace disease concerning for pneumonia.
[2025-03-15 12:38] LABS: Basophils % 0.1 %; Eosinophils % 0.2 %; Hematocrit 40.2 % (36-47); Lymphocytes # 0.7 10^3/uL (0.8-4.8); Lymphocytes % 7.1 %; Mean Corpuscular HGB Conc 32.6 g/dL (30-55); Mean Corpuscular Hemoglobin 31.3 pg (27-33); Mean Corpuscular Volume 95.9 fl (85-98); Mean Platelet Volume 9.8 fL (7.4-10.4); Monocytes # 0.5 10^3/uL (0.2-0.9); Monocytes % 5.2 %; Neutrophils # 8.04 10^3/uL (1.8-7.7); Neutrophils % 86.4 %; Nucleated Red Blood Cells % 0 %; Platelet Count 199 10^3/cmm (157-399); Red Blood Count 4.19 10^6/uL (3.85-5.65)
[2025-03-15 12:59] LABS: Alanine Aminotransferase < 5 U/L (0-33); Alkaline Phosphatase 131 U/L (35-105); Anion Gap 12.7 (5-19); Aspartate Amino Transferase 17 U/L (0-32); Blood Urea Nitrogen 15 mg/dL (8-23); Calcium 9.5 mg/dL (8.5-10.5); Carbon Dioxide 33 mmol/L (22-29); Chloride 93 mmol/L (98-107); Creatinine Clr Calc Pharmacy 48.6275; Globulin 2.9 g/dL (1.3-4.6); Glucose 96 mg/dL (65-115); Osmolality Calculated 283 mOsm/kg (285-295); Sodium 136 mmol/L (136-145); Total Bilirubin 1.1 mg/dL (0.15-1.2); Total Protein 6.9 g/dL (6.6-8.7)
[2025-03-15 13:06] LABS: Potassium 2.7 mmol/L (3.5-5.1)
[2025-03-15 13:14] LABS: Lactic Sepsis W/Reflex 0.9 mmol/L (0.5-2.2)
[2025-03-15 13:57] LABS: Magnesium 1.7 mg/dL (1.7-2.3)
[2025-03-15] MEDS: AZITHROMYCIN ADD-Vantage 500 MG in 0.9% NaCl ADD-Vantage 250 ML 250 MG IV (14:01)
[2025-03-15] MEDS: cefTRIAXone 1,000 mg SDV 1000 MG IVP (14:01)
--- NOTE | 2025-03-15 14:38 | PM.HP ---
Providers/Chief Complaint Admitting Physician: Laura Lopez MD Primary Care Provider: Julianna Mary NP Chief Complaint: fall History of Present Illness Radha Martinez is a 79 year old female who presented to the emergency room via EMS after a fall today while carrying breakfast. She has a history of frequent falls and wears an alert necklace that allows her to call for help when needed. She sustained some skin tears to her left hand and elbow with bleeding today and when EMS arrived they also noted her oxygen levels were low. They placed her on oxygen by nasal cannula and brought her in to the ER for further evaluation. She had another fall approximately two weeks ago and has had back pain since that incident. CAT scan performed today in the ER revealed a new fracture at T12?appearing newer than previous ones?and findings at the left lung base suggestive of early pneumonia. She continued to be hypoxic necessitating 2 L by nasal cannula. She was covered empirically with Rocephin and azithromycin and request was made for admission to hospitalist service. Review of previous records shows that Mrs. Martinez has a history of pulmonary embolism with prior IVC filter placement back in 2019. She denies significant change and her lower extremity edema which is chronic. Her right leg she thinks is the one that had blood clot previously but she is unable to recall for certain. She has been hurting all over and in her muscles. Has had increase in leg cramps. No reports of any cough or difficulty breathing. No chest pain. No GI symptoms to speak of. She has been taking her medications as prescribed including potassium., chronic hypokalemia managed with daily potassium supplementation. Her Parkinson's disease has been getting progressively worse with increased issues with movement and occasional hallucinations. Patient's last ED visit with a fall was at the first of this month on February 18. Review of Systems General: Reports: Other (ROS as per HPI or as otherwise noted here) Const: Reports: fatigue and malaise; Denies: fever(s) Eyes: Denies: change in vision Card: Reports: edema and lightheadedness; Denies: chest pain Resp: Denies: dyspnea, productive cough, non-productive cough, pain on inspiration, hemoptysis or chest congestion GI: Denies: change in bowel habits : Denies: difficulty voiding Musc: Reports: back pain and extremity pain Skin/Breast: Reports: sores (On her backside) and new lesions (Skin tears to the left upper extremity with bruising and bleeding) Neuro: Reports: weakness in extremities, lack of coordination, frequent falls, involuntary movements and other (Hallucinations) Medications/Allergies Home Medications ?Medication ?Instructions ?Recorded ?Confirmed ?Last Taken ?Type benazepril 20 mg tablet 20 mg PO DAILY 03/15/25 03/15/25 Unknown History carbidopa 25 mg-levodopa 100 mg 2 tab PO TID 03/15/25 03/15/25 Unknown History tablet chlorthalidone 25 mg tablet 25 mg PO DAILY 03/15/25 03/15/25 Unknown History citalopram 20 mg tablet 20 mg PO DAILY 03/15/25 03/15/25 Unknown History metoprolol succinate 50 mg 50 mg PO DAILY 03/15/25 03/15/25 Unknown History tablet,extended release 24 hr potassium chloride 20 mEq 20 meq PO DAILY 03/15/25 03/15/25 Unknown History tablet,extended release(part/cryst) (Klor-Con M) triamcinolone acetonide 0.025 % 1 applic topical BID 03/15/25 03/15/25 Unknown History topical cream Allergies Allergy/AdvReac Type Severity Reaction Status Date / Time heparin AdvReac Intermediate ADR-Confusi Verified 03/15/25 14:47 on PFSH Acute PFSH: Medical History (Updated 03/15/25 @ 15:57 by Rito Gonzalez DO) Hypokalemia History of pulmonary embolism 2019 PE with shock, got TPA, transferred to [facility] for thrombectomy consideration, got IVC filter, poor candidate for anticoagulation due to falls Parkinson disease Hypertension Osteoporosis History of vertebral compression fracture L4, L1, L2 History of rib fracture multiple on left side from a fall History of pelvic fracture History of falling Atrial fibrillation noted on 2 EKGs in 02/2023 hospital stay Pulmonary nodule left base GERD (gastroesophageal reflux disease) Hiatal hernia Syncope Surgical History (Updated 03/15/25 @ 15:20 by Laura Lopez MD) S/P insertion of IVC (inferior vena caval) filter (2019) History of kyphoplasty Social History Smoking and tobacco/nicotine status: never used tobacco/nicotine Alcohol intake: never Vitals/I&O/Wt Last Vital Signs Temp 99.1 F 03/15/25 10:43 Pulse 75 03/15/25 14:00 Resp 16 03/15/25 10:43 BP 171/98 03/15/25 14:00 Pulse Ox 93 03/15/25 14:00 O2 Del Method Nasal Cannula 03/15/25 14:00 O2 Flow Rate 2 03/15/25 14:00 Weight last 48 hrs Weight 52.163 kg Physical Exam Narrative: Patient is awake and alert. Able to provide history. Thin build. Seen lying on ER gurney. Rotated to the left. Kyphosis noted. Extraocular movements are intact. Mucous membranes are dry. Neck is supple. Lungs with crackles noted left base otherwise clear. Cardiovascular exam reveals a regular rate and rhythm. Abdomen is soft, nontender. Extremities 2+ pitting edema bilaterally, with left lower extremity approximately a centimeter in diameter larger than the right lower extremity at the tibial plateau. Calf tenderness noted bilaterally. No palpable cords. Does have some chronic stasis changes. Bruising noted to extensor surfaces with abrasions and increased ecchymoses to left upper extremity hand and elbow. Not able to adequately visualize gluteal area due to pain with movement/bed. Moves all extremities. Tremor noted. Oriented to person, place and situation. Data 03/15/25 12:11 03/15/25 12:11 Other Labs: Radiology Impressions Elbow X-Ray 03/15/25 10:58 IMPRESSION: No acute osseous abnormality. Hand X-Ray 03/15/25 10:58 IMPRESSION: No definite acute osseous abnormality, though examination limited by hand position. Lumbar Spine CT 03/15/25 11:36 IMPRESSION: 1. New mild compression deformity of T12 by approximately 20% without retropulsion. New since 02/18/2025. 2. Prior vertebroplasties with chronic fractures at L1 and L2. 3. Stable mild compression deformity of L4. 4. Multilevel areas of central and foraminal stenosis due to disc, facet and ligamentum flavum hypertrophy. Similar to the prior study of 02/18/2025. 5. Mild encroachment upon the thecal sac at L1 due to retropulsion of the vertebral body. No change. Chest X-Ray 03/15/25 11:37 IMPRESSION: New left basilar airspace disease concerning for pneumonia. Laboratory Results WBC 9.30 10^3/uL (3.29-11.43) 03/15/25 12:11 RBC 4.19 10^6/uL (3.85-5.65) 03/15/25 12:11 Hgb 13.10 g/dL (11.27-16.99) 03/15/25 12:11 Hct 40.2 % (36-47) 03/15/25 12:11 MCV 95.9 fl (85-98) 03/15/25 12:11 MCH 31.3 pg (27-33) 03/15/25 12:11 MCHC 32.6 g/dL (30-55) 03/15/25 12:11 RDW 12.0 % (12.1-15.1) L 03/15/25 12:11 Plt Count 199 10^3/cmm (157-399) 03/15/25 12:11 MPV 9.8 fL (7.4-10.4) 03/15/25 12:11 Neut % (Auto) 86.4 % 03/15/25 12:11 Lymph % (Auto) 7.1 % 03/15/25 12:11 [place] % (Auto) 5.2 % 03/15/25 12:11 Eos % (Auto) 0.2 % 03/15/25 12:11 Baso % (Auto) 0.1 % 03/15/25 12:11 Neut # (Auto) 8.04 10^3/uL (1.8-7.7) H 03/15/25 12:11 Lymph # (Auto) 0.7 10^3/uL (0.8-4.8) L 03/15/25 12:11 [place] # (Auto) 0.5 10^3/uL (0.2-0.9) 03/15/25 12:11 Eos # (Auto) 0.0 10^3/uL (0.0-0.8) 03/15/25 12:11 Baso # (Auto) 0.0 10^3/uL (0.0-0.1) 03/15/25 12:11 Nucleated RBC % (auto) 0 % 03/15/25 12:11 Nucleated RBCs # 0.0 /100WBC 03/15/25 12:11 Sodium 136 mmol/L (136-145) 03/15/25 12:11 Potassium 2.7 mmol/L (3.5-5.1) L* 03/15/25 12:11 Chloride 93 mmol/L (98-107) L 03/15/25 12:11 Carbon Dioxide 33 mmol/L (22-29) H 03/15/25 12:11 Anion Gap 12.7 (5-19) 03/15/25 12:11 BUN 15 mg/dL (8-23) 03/15/25 12:11 Creatinine 0.5 mg/dL (0.5-0.9) 03/15/25 12:11 GFR Calculation Not Reportable 03/15/25 12:11 Glucose 96 mg/dL (65-115) 03/15/25 12:11 Calculated Osmolality 283 mOsm/kg (285-295) L 03/15/25 12:11 Lactic Acid 0.9 mmol/L (0.5-2.2) 03/15/25 12:11 Calcium 9.5 mg/dL (8.5-10.5) 03/15/25 12:11 Total Bilirubin 1.1 mg/dL (0.15-1.2) 03/15/25 12:11 AST 17 U/L (0-32) 03/15/25 12:11 ALT < 5 U/L (0-33) 03/15/25 12:11 Alkaline Phosphatase 131 U/L (35-105) H 03/15/25 12:11 Total Protein 6.9 g/dL (6.6-8.7) 03/15/25 12:11 Albumin 4.0 g/dL (3.5-5.2) 03/15/25 12:11 Globulin 2.9 g/dL (1.3-4.6) 03/15/25 12:11 Micro: Microbiology 03/15/25 13:20 Blood Culture - Preliminary Blood SPECIMEN COLLECTED 03/15/25 13:28 Blood Culture - Preliminary Blood SPECIMEN COLLECTED Other data: Laboratory Tests 02/26/23 22:03 TSH 1.68 ECHO 02/2023 CONCLUSIONS LV systolic function is normal with EF of 60-65% Diastolic function is indeterminate because of atrial fibrillation Mild mitral regurgitation Trace aortic regurgitation Mild tricuspid regurgitation Compared to prior echocardiogram from 2017, no significant changes are seen A&P Assessment and plan (1) Fall: At home today. Sustained injuries predominantly skin tears to left upper extremity involving the hand and elbow. Has a history of frequent falls related to parkinsonism. Does have an alert necklace with which she is able to call for help. - Fall precautions - PT evaluation - Use of walker encourage at all times - Continue utilization of alert necklace - Supportive care Qualifiers: Encounter type: initial encounter Qualified Code(s): W19.XXXA - Unspecified fall, initial encounter (2) T12 compression fracture: Likely related to fall about a week ago. This is new from prior imaging earlier this month. Has associated pain with movement predominantly in area of associated fracture. - Pain control with acetaminophen - PT evaluation - Outpatient referral to Dr Sam for evaluation of managment options Qualifiers: Encounter type: initial encounter Qualified Code(s): S22.080A - Wedge compression fracture of T11-T12 vertebra, initial encounter for closed fracture (3) LLL pneumonia: Present on admission, organism unknown at this time. Currently feel related to #2 above. Could be atelectasis but does have a slight left shift and is hypoxic. Was started on empiric coverage with Rocephin and azithromycin in the emergency room. Also in differential with hypoxemia and prior history is pulmonary embolism though would expect imaging changes seem to be associated with pleuritic pain and other symptoms if from this. She has had previous IVC filter placement. Poor candidate for consideration for full anticoagulation given recurrent falls combined with the fact that she is not able to take heparin due to having significant adverse effects with it previously. Has had previously noted pulmonary nodule in the same region as well. No personal history of CHF diagnosis but has issues with lower extremity edema and is on chronic diuretic therapy. - Continue Rocephin and azithromycin - Follow-up pending blood cultures - Viral 4 plex test was performed but invalid; awaiting repeat testing - Will check bacterial antigens, legionella, mrsa - Breathing treatments as needed - Not performing CTA of chest as not able to tolerate another CT study in supine positioning, vitals signs are otherwise stable and has known IVC filter - Will check venous Doppler both lower extremities - Check BNP - Wean oxygen as able - Incentive spirometer and flutter as able to utilize, discussed with patient (4) Hypokalemia: Present on admission. Has had issues with low potassium levels for some time. Is on chlorthalidone in the outpatient setting. Does take potassium regularly. - Check magnesium level - Replace potassium with oral supplementation for a few days - IV fluids with potassium - Recheck electrolytes in the morning (5) Multiple skin tears: Predominantly involving the left upper extremity at the hand and elbow, with Steri-Strips in place. - Monitor for bleeding - Supportive care (6) Hypertension: Has primary hypertension at baseline. Currently with poor control in the setting of back pain from T12 compression fracture and other discomfort. Has also not had her usual medications today. Chronically on benazepril, chlorthalidone and metoprolol. - Resume metoprolol and a formulary equivalent of benazepril - Clinically looks dry so currently holding chlorthalidone while giving IV fluids - Monitor need for additional management Qualifiers: Hypertension type: primary hypertension Qualified Code(s): I10 - Essential (primary) hypertension (7) Parkinson disease: Chronically on carbidopa/levodopa. In addition to movement and gait issues has hallucinations as well. Not diagnosed with dementia. Is on citalopram. - Continue usual medications Qualifiers: Dyskinesia presence: with dyskinesia Fluctuating manifestations: with fluctuating manifestations Qualified Code(s): G20.B2 - Parkinson's disease with dyskinesia, with fluctuations (8) Osteoporosis: Given multiple compression fractures several requiring intervention clinically meets criteria for osteoporosis. Vitamin D levels unknown. Not on calcium or vitamin D replacement. - Check vitamin D level - Start calcium plus vitamin D replacement - May be a candidate for Forteo, Tymlos or other options to help both with management of back pain and bone growth; recommend follow-up with primary care provider to further explore and may be able to be addressed through orthopedics follow up for compression fracture Qualifiers: Osteoporosis type: age-related Presence of current pathological fracture: with current pathological fracture Encounter type: initial encounter Qualified Code(s): M80.00XA - Age-related osteoporosis with current pathological fracture, unspecified site, initial encounter for fracture (9) 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 Placed due to DVT and PE after treatment with tPA. - Aware Plan History of atrial fibrillation in past, currently in sinus rhythm Inpatient admission VTE prophylaxis: arixtra/scds GI Prophylaxis: PPI Antibiotics: Rocephin and Azithromycon started 03/15/25 Pending studies: blood culture Telemetry: ordered due to oxygen requirement and hx of afib [place]: not currently indicated Line(s): peripheral IVs Disposition plan: Anticipate discharge home with outpatient follow-up to orthopedics, Dr. Sam, due to T12 compression fracture and primary care provider. May benefit from PT in the home setting. Code Status: FULL CODE Supportive care otherwise Findings, concerns and plans were discussed with patient and they were given an opportunity to ask questions PDMP PDMP Reviewed: Not Reviewed Attestations Medical Necessity Statement*: Anticipated stay greater than two midnights in this 79-year-old currently requiring oxygen therapy and IV antibiotics for management of pneumonia as described. She is not normally on oxygen therapy. She has T12 compression fracture that I believe is a contributing factor here. Her parkinsonism and frequent falls along with acute hypokalemia also contributing factors. She is receiving oral potassium replacement and IV fluids with potassium. Other Cecy issues as noted above. Diagnoses Fall W19.XXXA Encounter type: initial encounter Compression fracture of T12 vertebra, initial encounter S22.080A Encounter type: initial encounter LLL pneumonia J18.9 Hypokalemia E87.6 Multiple skin tears T14.8XXA Primary hypertension I10 Hypertension type: primary hypertension Parkinson's disease with dyskinesia and fluctuating manifestations G20.B2 Dyskinesia presence: with dyskinesia Fluctuating manifestations: with fluctuating manifestations Age-related osteoporosis with current pathological fracture, initial encounter M80.00XA Osteoporosis type: age-related Presence of current pathological fracture: with current pathological fracture Encounter type: initial encounter Presence of IVC filter Z95.828
[2025-03-15] MEDS: potassium chloride oral liq 20 mEq/15 mL UDC 40 MEQ PO (15:00)
[2025-03-15 15:17] LABS: NT Pro B Type Natriuretic Pept 256 pg/mL (0-450)
[2025-03-15 15:20] LABS: Influenza A NEGATIVE (Negative); Influenza B NEGATIVE (Negative); Respiratory Syncytial Virus Ce NEGATIVE (Negative); SARS-CoV-2 PCR NEGATIVE (Negative)
[2025-03-15] MEDS: sodium chlor 0.9% + KCl 20 mEq 20 MEQ/1,000 ML BAG 75 MEQ IV (16:25)
--- NOTE | 2025-03-15 16:50 | USR_ITS ---
PROCEDURE INFORMATION: Exam: US Duplex Lower Extremity Veins, Bilateral Exam date and time: 03/15/2025 5:45 PM Age: 79 years old Clinical indication: Swelling (edema) of limb; Lower extremity, bilateral; Additional info: HX pe/dvt, hypoxemia, leg edema and pain TECHNIQUE: Imaging protocol: Real-time duplex ultrasound of the bilateral extremities with 2-D victor scale, color Doppler flow and spectral waveform analysis including responses to compression and other maneuvers (when performed) with image documentation. Complete exam focused on the lower extremity veins. COMPARISON: No relevant prior studies available. FINDINGS: Right deep veins: Unremarkable. The common femoral, femoral, proximal profunda femoral and popliteal veins are patent without thrombus. Normal Doppler waveforms. Normal compressibility and/or augmentation response. Left deep veins: Unremarkable. The common femoral, femoral, proximal profunda femoral and popliteal veins are patent without thrombus. Normal Doppler waveforms. Normal compressibility and/or augmentation response. Superficial veins: Greater saphenous veins at the saphenofemoral junctions are patent bilaterally without thrombus. Soft tissues: Unremarkable. US/CV venous duplex [facility] [id number] IMPRESSION: No evidence of deep vein thrombosis.
[2025-03-15] MEDS: carbidopa-levodopa 25-100mg Tablet 2 EACH PO ×2 (16:53→21:03)
[2025-03-15 18:46] LABS: Glucose Point of Care 166 mg/dL (70-110)
[2025-03-15] MEDS: acetaminophen 325 mg Tablet 650 MG PO (21:02)
[2025-03-16] VITALS (8 sets, daily range): BP systolic 139–195; BP diastolic 86–106; PULSE 81–98; RESP 15–20; TEMP 36.8–37.2; O2SAT 91–97
[2025-03-16 05:00] LABS: Basophils % 0.3 %; Eosinophils % 0.1 %; Hematocrit 35.3 % (36-47); Lymphocytes # 0.4 10^3/uL (0.8-4.8); Lymphocytes % 4.5 %; Mean Corpuscular HGB Conc 32.6 g/dL (30-55); Mean Corpuscular Hemoglobin 31.1 pg (27-33); Mean Corpuscular Volume 95.4 fl (85-98); Mean Platelet Volume 9.9 fL (7.4-10.4); Monocytes # 0.7 10^3/uL (0.2-0.9); Monocytes % 8.7 %; Neutrophils # 6.72 10^3/uL (1.8-7.7); Neutrophils % 85.8 %; Nucleated Red Blood Cells % 0 %; Platelet Count 195 10^3/cmm (157-399); Red Cell Distribution Width 12.1 % (12.1-15.1); White Blood Count 7.83 10^3/uL (3.29-11.43)
[2025-03-16 05:18] LABS: Anion Gap 11.8 (5-19); Blood Urea Nitrogen 12 mg/dL (8-23); Calcium 8.7 mg/dL (8.5-10.5); Carbon Dioxide 32 mmol/L (22-29); Chloride 96 mmol/L (98-107); Glucose 111 mg/dL (65-115); Magnesium 1.6 mg/dL (1.7-2.3); Osmolality Calculated 284 mOsm/kg (285-295); Phosphorus 1.9 mg/dL (2.5-4.5); Sodium 137 mmol/L (136-145)
[2025-03-16 05:22] LABS: Potassium 2.8 mmol/L (3.5-5.1)
[2025-03-16 05:40] LABS: 25 Hydroxy Vitamin D 82 ng/mL (30-100)
--- NOTE | 2025-03-16 06:12 | PC.NURSE ---
Notified Dr. Hartmann of critical potassium level 2.8 at 5.28 am no new orders.
[2025-03-16] MEDS: acetaminophen 325 mg Tablet 650 MG PO ×2 (06:52→12:05)
[2025-03-16] MEDS: metoprolol succinate ER (24 HR) 50 mg Tablet PO (08:23)
[2025-03-16] MEDS: carbidopa-levodopa 25-100mg Tablet 2 EACH PO ×3 (08:23→21:37)
[2025-03-16] MEDS: potassium chloride ER 20 mEq Tablet 40 MEQ PO ×2 (08:23→17:41)
[2025-03-16] MEDS: azithromycin 250 mg Tablet 500 MG PO (08:23)
[2025-03-16] MEDS: lisinopril 20 mg Tablet PO (08:24)
[2025-03-16] MEDS: citalopram 20 mg Tablet PO (08:24)
[2025-03-16] MEDS: calcium carb-vit d 600mg/400unit 1 Tablet 1 EACH PO ×2 (08:24→17:41)
[2025-03-16] MEDS: fondaparinux 2.5 mg/0.5 mL Syringe SUBCUT (08:25)
[2025-03-16 08:30] LABS: MRSA PCR OZH (swab) NOT DETECTED (Not Detecte)
--- NOTE | 2025-03-16 10:03 | PC.CHAP ---
Pastoral Care Encounter/Spiritual Assessment Type of Contact [] Declined compressor technician visit [] Patient/Family/Request visit [] Outpatient visit [] Follow-up visit [] Physician referral [] Code/Alert [x] Routine visit [] Staff referral [] Actively dying [] Patient sleeping [] Family support [] [] Out of room [] Palliative care [] [] Receiving care in room [] Pre-surgical visit [] Trauma [] Long length of stay [] ICU visit [] Other: Relational/Emotional Strength [x] Patient feels connected with others/family/visitors/staff [] Distress [] Loneliness/isolation [] Abandonment Spirituality of Patient [x] Person of Leonela [] Attends Taoist of their Leonela [x] Believes in Prayer [] Reads Bible or Taoism materials [] There are Spiritual issues to be addressed Log Chipper Operator Interventions [x] Prayer [x] Active listening [] Non-anxious presence [x] Spiritual/emotional support [] Crisis/trauma care [] Spiritual counseling [] Bereavement support [] Provided bereavement packet [] Provided Bible/devotional materials [] Provided toy/stuffed animal, coloring book to patient or family member [] Provided Communion [] Anointing/[place] [] Salvation [x] Completed spiritual assessment [] Other: Impact on Illness or Injury [] Angry [] Fearful [] Anxious [] Often cries [] Exhaustion [] Unable to work [] Unable to attend sabianism [] Unable to walk/stand [] Unable to read [] Unable to drive [] Unable to eat/drink [] Unable to sleep [] Unable to be with family [] Patient intubated [] Other: Summary Time spent with patient 5 min
[2025-03-16] MEDS: lanolin oint 7 gm 1 APPLIC TOPICAL (12:37)
[2025-03-16] MEDS: cefTRIAXone 1,000 mg SDV 1000 MG IVP (12:52)
[2025-03-16] MEDS: lidocaine 5% Patch 1 PATCH TOPICAL (14:07)
--- NOTE | 2025-03-16 16:13 | P.PN_ITS ---
Subjective 2 Subjective: Complains of pain over the back. Vitals/I&O/Wt Last Vital Signs Temp 98.3 F 03/16/25 11:12 Pulse 89 03/16/25 11:12 Resp 18 03/16/25 11:12 BP 173/86 03/16/25 11:12 Pulse Ox 93 03/16/25 11:12 O2 Del Method Nasal Cannula 03/16/25 11:12 O2 Flow Rate 4 03/16/25 11:12 03/16/25 03/16/25 03/16/25 06:59 14:59 22:59 Intake Total 1000 / 1370 Balance 1000 / 1370 Weight last 48 hrs Weight 48.591 kg Weight 48.534 kg Weight 52.163 kg Physical Exam 2 Narrative: General: No acute distress, AO x3 HEENT: PERRLA, pupils bilaterally equal and reactive, pallors not present Chest: Normal vesicular breath sounds, no added sounds, equal good air entry bilaterally CVS: S1-S2 regular, no murmurs, no tachycardia, no gallops, no rubs Abdomen: Soft, nontender, no organomegaly, bowel sounds present Neuro: No focal deficits, no facial deformity, AO x3, power 5/5 in all limbs Data 03/16/25 04:21 03/16/25 04:21 Micro: Microbiology 03/15/25 13:28 Blood Culture - Preliminary Blood NEGATIVE TO DATE 03/15/25 13:20 Blood Culture - Preliminary Blood NEGATIVE TO DATE 03/15/25 19:00 Bacterial Antigens - Final Urine,Clean Catch 03/15/25 19:00 Legionella Urinary Antigen - Final Urine Kidney A&P Assessment and plan (1) Fall: At home today. Sustained injuries predominantly skin tears to left upper extremity involving the hand and elbow. Has a history of frequent falls related to parkinsonism. Does have an alert necklace with which she is able to call for help. - Fall precautions - PT evaluation - Use of walker encourage at all times - Continue utilization of alert necklace - Supportive care Qualifiers: Encounter type: initial encounter Qualified Code(s): W19.XXXA - Unspecified fall, initial encounter (2) T12 compression fracture: Likely related to fall about a week ago. This is new from prior imaging earlier this month. Has associated pain with movement predominantly in area of associated fracture. - Pain control with acetaminophen - PT evaluation - Outpatient referral to Dr Sam for evaluation of managment options Qualifiers: Encounter type: initial encounter Qualified Code(s): S22.080A - Wedge compression fracture of T11-T12 vertebra, initial encounter for closed fracture (3) LLL pneumonia: Present on admission, organism unknown at this time. Currently feel related to #2 above. Could be atelectasis but does have a slight left shift and is hypoxic. Was started on empiric coverage with Rocephin and azithromycin in the emergency room. Also in differential with hypoxemia and prior history is pulmonary embolism though would expect imaging changes seem to be associated with pleuritic pain and other symptoms if from this. She has had previous IVC filter placement. Poor candidate for consideration for full anticoagulation given recurrent falls combined with the fact that she is not able to take heparin due to having significant adverse effects with it previously. Has had previously noted pulmonary nodule in the same region as well. No personal history of CHF diagnosis but has issues with lower extremity edema and is on chronic diuretic therapy. - Continue Rocephin and azithromycin - Follow-up pending blood cultures - Viral 4 plex test was performed but invalid; awaiting repeat testing - Will check bacterial antigens, legionella, mrsa - Breathing treatments as needed - Not performing CTA of chest as not able to tolerate another CT study in supine positioning, vitals signs are otherwise stable and has known IVC filter - Will check venous Doppler both lower extremities - Check BNP - Wean oxygen as able - Incentive spirometer and flutter as able to utilize, discussed with patient (4) Hypokalemia: Present on admission. Has had issues with low potassium levels for some time. Is on chlorthalidone in the outpatient setting. Does take potassium regularly. - Check magnesium level - Replace potassium with oral supplementation for a few days - IV fluids with potassium - Recheck electrolytes in the morning (5) Multiple skin tears: Predominantly involving the left upper extremity at the hand and elbow, with Steri-Strips in place. - Monitor for bleeding - Supportive care (6) Hypertension: Has primary hypertension at baseline. Currently with poor control in the setting of back pain from T12 compression fracture and other discomfort. Has also not had her usual medications today. Chronically on benazepril, chlorthalidone and metoprolol. - Resume metoprolol and a formulary equivalent of benazepril - Clinically looks dry so currently holding chlorthalidone while giving IV fluids - Monitor need for additional management Qualifiers: Hypertension type: primary hypertension Qualified Code(s): I10 - Essential (primary) hypertension (7) Parkinson disease: Chronically on carbidopa/levodopa. In addition to movement and gait issues has hallucinations as well. Not diagnosed with dementia. Is on citalopram. - Continue usual medications Qualifiers: Dyskinesia presence: with dyskinesia Fluctuating manifestations: with fluctuating manifestations Qualified Code(s): G20.B2 - Parkinson's disease with dyskinesia, with fluctuations (8) Osteoporosis: Given multiple compression fractures several requiring intervention clinically meets criteria for osteoporosis. Vitamin D levels unknown. Not on calcium or vitamin D replacement. - Check vitamin D level - Start calcium plus vitamin D replacement - May be a candidate for Forteo, Tymlos or other options to help both with management of back pain and bone growth; recommend follow-up with primary care provider to further explore and may be able to be addressed through orthopedics follow up for compression fracture Qualifiers: Osteoporosis type: age-related Presence of current pathological fracture: with current pathological fracture Encounter type: initial encounter Qualified Code(s): M80.00XA - Age-related osteoporosis with current pathological fracture, unspecified site, initial encounter for fracture (9) 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 Placed due to DVT and PE after treatment with tPA. - Aware Plan History of atrial fibrillation in past, currently in sinus rhythm Inpatient admission VTE prophylaxis: arixtra/scds GI Prophylaxis: PPI Antibiotics: Rocephin and Azithromycon started 03/15/25 Pending studies: blood culture Telemetry: ordered due to oxygen requirement and hx of afib Barreto: not currently indicated Line(s): peripheral IVs Disposition plan: Anticipate discharge home with outpatient follow-up to orthopedics, Dr. Sam, due to T12 compression fracture and primary care provider. May benefit from PT in the home setting. Code Status: FULL CODE Supportive care otherwise Findings, concerns and plans were discussed with patient and they were given an opportunity to ask questions March 16, 2025 Complains of persisting pain over the back. Added as needed Toradol and lidocaine patch for local application. Patient is hesitant to take any opiates for pain management due to concerns for constipation with the same. Reviewed blood pressure trend, patient has been hypertensive with systolic blood pressure running in the 170s while she is been in the hospital. Partly may be contributed by the pain. Continue lisinopril 20 mg p.o. daily as started yesterday. Continue metoprolol 50 mg p.o. daily. Chlorthalidone on hold as it appeared to be dehydrated upon admission. As needed hydralazine added for systolic blood pressure greater than 160 mmHg. Oxygen requirements at 4 L/min today. Continue ceftriaxone and azithromycin for management of community-acquired pneumonia. PT OT assessment appreciated. Ongoing disposition planning. PDMP PDMP Reviewed: Not Reviewed Attestations 2 Medical Necessity Statement*: Needs continued admission for pain management, high blood pressure and disposition planning Coding Level of Care Code Acute Code for Chg Fwd Diagnoses Fall W19.XXXA Encounter type: initial encounter Compression fracture of T12 vertebra, initial encounter S22.080A Encounter type: initial encounter LLL pneumonia J18.9 Hypokalemia E87.6 Multiple skin tears T14.8XXA Primary hypertension I10 Hypertension type: primary hypertension Parkinson's disease with dyskinesia and fluctuating manifestations G20.B2 Dyskinesia presence: with dyskinesia Fluctuating manifestations: with fluctuating manifestations Age-related osteoporosis with current pathological fracture, initial encounter M80.00XA Osteoporosis type: age-related Presence of current pathological fracture: with current pathological fracture Encounter type: initial encounter Presence of IVC filter Z95.828
[2025-03-16] MEDS: docusate sodium 100 mg Capsule PO (17:41)
[2025-03-16] MEDS: ketorolac 30 mg/mL INJ 15 MG IVP (19:53)
[2025-03-17] VITALS (7 sets, daily range): BP systolic 129–183; BP diastolic 82–94; PULSE 87–100; RESP 15–19; TEMP 36.6–37.1; O2SAT 92–97
--- NOTE | 2025-03-17 05:29 | PM.HP ---
Providers/Chief Complaint Admitting Physician: Laura Lopez MD Primary Care Provider: Julianna Mary NP Chief Complaint: fall History of Present Illness Radha Martinez is a 79 year old female Medications/Allergies Home Medications ?Medication ?Instructions ?Recorded ?Confirmed ?Last Taken ?Type benazepril 20 mg tablet 20 mg PO DAILY 03/15/25 03/15/25 Unknown History carbidopa 25 mg-levodopa 100 mg 2 tab PO TID 03/15/25 03/15/25 Unknown History tablet chlorthalidone 25 mg tablet 25 mg PO DAILY 03/15/25 03/15/25 Unknown History citalopram 20 mg tablet 20 mg PO DAILY 03/15/25 03/15/25 Unknown History metoprolol succinate 50 mg 50 mg PO DAILY 03/15/25 03/15/25 Unknown History tablet,extended release 24 hr potassium chloride 20 mEq 20 meq PO DAILY 03/15/25 03/15/25 Unknown History tablet,extended release(part/cryst) (Klor-Con M) triamcinolone acetonide 0.025 % 1 applic topical BID 03/15/25 03/15/25 Unknown History topical cream Allergies Allergy/AdvReac Type Severity Reaction Status Date / Time heparin AdvReac Intermediate ADR-Confusi Verified 03/15/25 14:47 on PFSH Acute PFSH: Medical History (Updated 03/15/25 @ 15:57 by Rito Gonzalez DO) Hypokalemia History of pulmonary embolism 2019 PE with shock, got TPA, transferred to [facility] for thrombectomy consideration, got IVC filter, poor candidate for anticoagulation due to falls Parkinson disease Hypertension Osteoporosis History of vertebral compression fracture L4, L1, L2 History of rib fracture multiple on left side from a fall History of pelvic fracture History of falling Atrial fibrillation noted on 2 EKGs in 02/2023 hospital stay Pulmonary nodule left base GERD (gastroesophageal reflux disease) Hiatal hernia Syncope Surgical History (Updated 03/15/25 @ 15:20 by Laura Lopez MD) S/P insertion of IVC (inferior vena caval) filter (2019) History of kyphoplasty Social History Smoking and tobacco/nicotine status: never used tobacco/nicotine Alcohol intake: never Vitals/I&O/Wt Last Vital Signs Temp 98.4 F 03/16/25 23:36 Pulse 98 03/16/25 23:36 Resp 18 03/16/25 23:36 BP 148/90 03/16/25 23:36 Pulse Ox 93 03/16/25 23:36 O2 Del Method Nasal Cannula 03/16/25 23:36 O2 Flow Rate 4 03/16/25 23:36 03/16/25 03/16/25 03/17/25 14:59 22:59 06:59 Intake Total 240 / 240 Balance 240 / 240 Weight last 48 hrs Weight 48.591 kg Weight 48.534 kg Weight 52.163 kg Data 03/16/25 04:21 03/16/25 04:21 Micro: Microbiology 03/15/25 13:28 Blood Culture - Preliminary Blood NEGATIVE TO DATE 03/15/25 13:20 Blood Culture - Preliminary Blood NEGATIVE TO DATE 03/15/25 19:00 Bacterial Antigens - Final Urine,Clean Catch A&P Assessment and plan (1) Hypertension: (2) Fall: PDMP PDMP Reviewed: Not Reviewed Coding Level of Care Code Acute Code for Chg Fwd Diagnoses Primary hypertension I10 Hypertension type: primary hypertension Fall W19.XXXA Encounter type: initial encounter
[2025-03-17 05:48] LABS: Basophils % 0.2 %; Eosinophils # 0.1 10^3/uL (0.0-0.8); Eosinophils % 1.1 %; Hematocrit 36.5 % (36-47); Lymphocytes # 0.9 10^3/uL (0.8-4.8); Lymphocytes % 10.5 %; Mean Corpuscular HGB Conc 33.2 g/dL (30-55); Mean Corpuscular Hemoglobin 31.8 pg (27-33); Mean Corpuscular Volume 95.8 fl (85-98); Mean Platelet Volume 10.1 fL (7.4-10.4); Monocytes # 0.8 10^3/uL (0.2-0.9); Monocytes % 9.2 %; Neutrophils # 6.49 10^3/uL (1.8-7.7); Neutrophils % 78.5 %; Nucleated Red Blood Cells % 0 %; Platelet Count 191 10^3/cmm (157-399); Red Blood Count 3.81 10^6/uL (3.85-5.65); Red Cell Distribution Width 12.1 % (12.1-15.1); White Blood Count 8.27 10^3/uL (3.29-11.43)
[2025-03-17 06:12] LABS: Alanine Aminotransferase < 5 U/L (0-33); Albumin Level 3.4 g/dL (3.5-5.2); Alkaline Phosphatase 103 U/L (35-105); Anion Gap 10.2 (5-19); Aspartate Amino Transferase 16 U/L (0-32); Blood Urea Nitrogen 15 mg/dL (8-23); Calcium 9.4 mg/dL (8.5-10.5); Carbon Dioxide 36 mmol/L (22-29); Chloride 97 mmol/L (98-107); Creatinine Clr Calc Pharmacy 47.3204; Globulin 2.6 g/dL (1.3-4.6); Glucose 87 mg/dL (65-115); Osmolality Calculated 290 mOsm/kg (285-295); Potassium 3.2 mmol/L (3.5-5.1); Sodium 140 mmol/L (136-145); Total Bilirubin 0.9 mg/dL (0.15-1.2)
[2025-03-17] MEDS: lisinopril 20 mg Tablet PO (09:09)
[2025-03-17] MEDS: azithromycin 250 mg Tablet 500 MG PO (09:10)
[2025-03-17] MEDS: potassium chloride ER 20 mEq Tablet 40 MEQ PO (09:11)
[2025-03-17] MEDS: carbidopa-levodopa 25-100mg Tablet 2 EACH PO ×3 (09:11→20:23)
[2025-03-17] MEDS: calcium carb-vit d 600mg/400unit 1 Tablet 1 EACH PO ×2 (09:11→17:51)
[2025-03-17] MEDS: docusate sodium 100 mg Capsule PO ×2 (09:11→17:51)
[2025-03-17] MEDS: citalopram 20 mg Tablet PO (09:12)
[2025-03-17] MEDS: metoprolol succinate ER (24 HR) 50 mg Tablet PO (09:13)
--- NOTE | 2025-03-17 10:16 | PC.SOCIAL ---
IMM Update Updated pt's family on IMM. No questions voiced. Provided pt a copy. Initialed, dated, & timed a copy & placed in chart.
[2025-03-17] MEDS: ketorolac 30 mg/mL INJ 15 MG IVP ×2 (11:53→20:24)
[2025-03-17] MEDS: cefTRIAXone 1,000 mg SDV 1000 MG IVP (11:54)
[2025-03-17] MEDS: lidocaine 5% Patch 1 PATCH TOPICAL ×2 (11:55→20:32)
--- NOTE | 2025-03-17 16:45 | P.PN_ITS ---
Subjective 2 Subjective: no new complaints. Pain is better controlled. Medications: Reviewed: Yes Vitals/I&O/Wt Last Vital Signs Temp 98.3 F 03/17/25 15:58 Pulse 98 03/17/25 15:58 Resp 18 03/17/25 15:58 BP 129/94 03/17/25 15:58 Pulse Ox 96 03/17/25 15:58 O2 Del Method Nasal Cannula 03/17/25 15:58 O2 Flow Rate 2 03/17/25 14:49 03/17/25 03/17/25 03/17/25 06:59 14:59 22:59 Intake Total 200 / 440 720 / 720 Balance 200 / 440 720 / 720 Weight last 48 hrs Weight 48.648 kg Weight 48.591 kg Weight 48.534 kg Physical Exam 2 Narrative: General: No acute distress, AO x3 HEENT: PERRLA, pupils bilaterally equal and reactive, pallors not present Chest: Normal vesicular breath sounds, no added sounds, equal good air entry bilaterally CVS: S1-S2 regular, no murmurs, no tachycardia, no gallops, no rubs Abdomen: Soft, nontender, no organomegaly, bowel sounds present Neuro: No focal deficits, no facial deformity, AO x3, power 5/5 in all limbs Data 03/17/25 04:55 03/17/25 04:55 Micro: Microbiology 03/15/25 13:28 Blood Culture - Preliminary Blood NEGATIVE TO DATE 03/15/25 13:20 Blood Culture - Preliminary Blood NEGATIVE TO DATE A&P Assessment and plan (1) Fall: At home today. Sustained injuries predominantly skin tears to left upper extremity involving the hand and elbow. Has a history of frequent falls related to parkinsonism. Does have an alert necklace with which she is able to call for help. - Fall precautions - PT evaluation - Use of walker encourage at all times - Continue utilization of alert necklace - Supportive care (2) T12 compression fracture: Likely related to fall about a week ago. This is new from prior imaging earlier this month. Has associated pain with movement predominantly in area of associated fracture. - Pain control with acetaminophen - PT evaluation - Outpatient referral to Dr Sam for evaluation of managment options (3) LLL pneumonia: Present on admission, organism unknown at this time. Currently feel related to #2 above. Could be atelectasis but does have a slight left shift and is hypoxic. Was started on empiric coverage with Rocephin and azithromycin in the emergency room. Also in differential with hypoxemia and prior history is pulmonary embolism though would expect imaging changes seem to be associated with pleuritic pain and other symptoms if from this. She has had previous IVC filter placement. Poor candidate for consideration for full anticoagulation given recurrent falls combined with the fact that she is not able to take heparin due to having significant adverse effects with it previously. Has had previously noted pulmonary nodule in the same region as well. No personal history of CHF diagnosis but has issues with lower extremity edema and is on chronic diuretic therapy. - Continue Rocephin and azithromycin - Follow-up pending blood cultures - Viral 4 plex test was performed but invalid; awaiting repeat testing - Will check bacterial antigens, legionella, mrsa - Breathing treatments as needed - Not performing CTA of chest as not able to tolerate another CT study in supine positioning, vitals signs are otherwise stable and has known IVC filter - Will check venous Doppler both lower extremities - Check BNP - Wean oxygen as able - Incentive spirometer and flutter as able to utilize, discussed with patient (4) Hypokalemia: Present on admission. Has had issues with low potassium levels for some time. Is on chlorthalidone in the outpatient setting. Does take potassium regularly. - Check magnesium level - Replace potassium with oral supplementation for a few days - IV fluids with potassium - Recheck electrolytes in the morning (5) Multiple skin tears: Predominantly involving the left upper extremity at the hand and elbow, with Steri-Strips in place. - Monitor for bleeding - Supportive care (6) Hypertension: Has primary hypertension at baseline. Currently with poor control in the setting of back pain from T12 compression fracture and other discomfort. Has also not had her usual medications today. Chronically on benazepril, chlorthalidone and metoprolol. - Resume metoprolol and a formulary equivalent of benazepril - Clinically looks dry so currently holding chlorthalidone while giving IV fluids - Monitor need for additional management (7) Parkinson disease: Chronically on carbidopa/levodopa. In addition to movement and gait issues has hallucinations as well. Not diagnosed with dementia. Is on citalopram. - Continue usual medications (8) Osteoporosis: Given multiple compression fractures several requiring intervention clinically meets criteria for osteoporosis. Vitamin D levels unknown. Not on calcium or vitamin D replacement. 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 Placed due to DVT and PE after treatment with tPA. - Aware Plan History of atrial fibrillation in past, currently in sinus rhythm Inpatient admission VTE prophylaxis: arixtra/scds GI Prophylaxis: PPI Antibiotics: Rocephin and Azithromycon started 03/15/25 Pending studies: blood culture Telemetry: ordered due to oxygen requirement and hx of afib Barreto: not currently indicated Line(s): peripheral IVs Disposition plan: Anticipate discharge home with outpatient follow-up to orthopedics, Dr. Sam, due to T12 compression fracture and primary care provider. May benefit from PT in the home setting. Code Status: FULL CODE Supportive care otherwise Findings, concerns and plans were discussed with patient and they were given an opportunity to ask questions March 16, 2025 Complains of persisting pain over the back. Added as needed Toradol and lidocaine patch for local application. Patient is hesitant to take any opiates for pain management due to concerns for constipation with the same. Reviewed blood pressure trend, patient has been hypertensive with systolic blood pressure running in the 170s while she is been in the hospital. Partly may be contributed by the pain. Continue lisinopril 20 mg p.o. daily as started yesterday. Continue metoprolol 50 mg p.o. daily. Chlorthalidone on hold as it appeared to be dehydrated upon admission. As needed hydralazine added for systolic blood pressure greater than 160 mmHg. Oxygen requirements at 4 L/min today. Continue ceftriaxone and azithromycin for management of community-acquired pneumonia. PT OT assessment appreciated. Ongoing disposition planning. March 17, 2025 Pain is better controlled today. Lidocaine patch appears to be helping. Resume home dose of chlorthalidone 25 mg p.o. daily as she is no longer dehydrated. Oxygen requirements at 3 L/min. Encourage incentive spirometry. Family wishes to discontinue DVT prophylaxis with fondaparinux as they are concerned that is affecting patient's mental status. Currently patient is awake alert and oriented, no concerns for altered mentation. However in spite of reassurance family would like to discontinue the DVT prophylaxis. They wish to resume aspirin 81 mg p.o. daily as she takes at home. Agreeable to use of SCDs. Family additionally wants to know if she can undergo surgical fixation for the T12 fracture. I offered spine surgery consult here with Dr. Sam, however family wishes to consult the previous spine surgeon in [place] after discharge and declined the consult for now. PDMP PDMP Reviewed: Not Reviewed Attestations 2 Medical Necessity Statement*: Pain is better controlled. Resuming home medications including aspirin and chlorthalidone. Awaiting appropriate disposition planning. Continue antibiotics for pneumonia. Coding Level of Care Code Acute Code for Chg Fwd Moderate MDM includes number and complexity of problems actively addressed during encounter, amount and/or complexity of data reviewed/ordered and described risk of complication, morbidity or mortality of management as documented Diagnoses Fall W19.XXXA Encounter type: initial encounter Compression fracture of T12 vertebra, initial encounter S22.080A Encounter type: initial encounter LLL pneumonia J18.9 Hypokalemia E87.6 Multiple skin tears T14.8XXA Primary hypertension I10 Hypertension type: primary hypertension Parkinson's disease with dyskinesia and fluctuating manifestations G20.B2 Dyskinesia presence: with dyskinesia Fluctuating manifestations: with fluctuating manifestations Age-related osteoporosis with current pathological fracture, initial encounter M80.00XA Osteoporosis type: age-related Presence of current pathological fracture: with current pathological fracture Encounter type: initial encounter Presence of IVC filter Z95.828
[2025-03-18 03:54] VITALS: BP 191/94; PULSE 82; RESP 15; TEMP 36.8; O2SAT 96
[2025-03-18 05:05] LABS: Basophils % 0.3 %; Eosinophils # 0.2 10^3/uL (0.0-0.8); Eosinophils % 2.8 %; Hematocrit 35.4 % (36-47); Lymphocytes # 0.9 10^3/uL (0.8-4.8); Mean Corpuscular HGB Conc 33.1 g/dL (30-55); Mean Corpuscular Hemoglobin 31.6 pg (27-33); Mean Corpuscular Volume 95.7 fl (85-98); Mean Platelet Volume 10.4 fL (7.4-10.4); Monocytes # 0.8 10^3/uL (0.2-0.9); Monocytes % 10.8 %; Neutrophils # 5.27 10^3/uL (1.8-7.7); Neutrophils % 73.7 %; Nucleated Red Blood Cells % 0 %; Platelet Count 197 10^3/cmm (157-399); Red Cell Distribution Width 12.3 % (12.1-15.1); White Blood Count 7.15 10^3/uL (3.29-11.43)
[2025-03-18 05:34] LABS: Alanine Aminotransferase < 5 U/L (0-33); Albumin Level 3.4 g/dL (3.5-5.2); Alkaline Phosphatase 92 U/L (35-105); Anion Gap 10.5 (5-19); Aspartate Amino Transferase 13 U/L (0-32); Blood Urea Nitrogen 25 mg/dL (8-23); Calcium 9.8 mg/dL (8.5-10.5); Carbon Dioxide 35 mmol/L (22-29); Chloride 100 mmol/L (98-107); Creatinine Clr Calc Pharmacy 46.7216; Globulin 2.4 g/dL (1.3-4.6); Glucose 96 mg/dL (65-115); Osmolality Calculated 298 mOsm/kg (285-295); Potassium 3.5 mmol/L (3.5-5.1); Sodium 142 mmol/L (136-145); Total Bilirubin 0.7 mg/dL (0.15-1.2); Total Protein 5.8 g/dL (6.6-8.7)
[2025-03-18] MEDS: calcium carb-vit d 600mg/400unit 1 Tablet 1 EACH PO (08:01)
[2025-03-18] MEDS: chlorthalidone 25 mg Tablet PO (08:01)
[2025-03-18] MEDS: citalopram 20 mg Tablet PO (08:01)
[2025-03-18] MEDS: potassium chloride ER 20 mEq Tablet 40 MEQ PO (08:02)
[2025-03-18] MEDS: aspirin 81 mg EC Tablet PO (08:02)
[2025-03-18] MEDS: carbidopa-levodopa 25-100mg Tablet 2 EACH PO (08:02)
[2025-03-18] MEDS: metoprolol succinate ER (24 HR) 50 mg Tablet PO (08:02)
[2025-03-18] MEDS: docusate sodium 100 mg Capsule PO (08:02)
[2025-03-18] MEDS: azithromycin 250 mg Tablet 500 MG PO (08:02)
[2025-03-18] MEDS: lisinopril 20 mg Tablet PO (08:02)
[2025-03-18 08:04] VITALS: BP 160/98; PULSE 85; RESP 17; TEMP 36.4; O2SAT 97
[2025-03-18 08:28] VITALS: PULSE 90; RESP 16; O2SAT 96
[2025-03-18] MEDS: ketorolac 30 mg/mL INJ 15 MG IVP (09:49)
[2025-03-18 12:03] VITALS: BP 147/33; PULSE 97; RESP 17; TEMP 36.6; O2SAT 93
[2025-03-18 12:26] VITALS: BP 147/33; PULSE 97; RESP 17; TEMP 36.6; O2SAT 93
--- NOTE | 2025-03-18 15:15 | P.DS_ITS ---
Discharge Providers Date of Admission: 03/15/25 15:17 Date of Discharge: March 18, 2025 Attending Provider at Admission: Laura Lopez MD Attending Provider at Discharge: Katarina Hudson MD Primary Care Provider: Julianna Mary NP Diagnoses at Discharge Discharge Diagnosis (1) Fall: Status: Acute Qualifiers: Encounter type: initial encounter Qualified Code(s): W19.XXXA - Unspecified fall, initial encounter (2) T12 compression fracture: Status: Acute Qualifiers: Encounter type: initial encounter Qualified Code(s): S22.080A - Wedge compression fracture of T11-T12 vertebra, initial encounter for closed fracture (3) LLL pneumonia: Status: Acute (4) Hypokalemia: Status: Acute (5) Multiple skin tears: Status: Acute (6) Hypertension: Status: Chronic Qualifiers: Hypertension type: primary hypertension Qualified Code(s): I10 - Essential (primary) hypertension (7) Parkinson disease: Status: Chronic Qualifiers: Dyskinesia presence: with dyskinesia Fluctuating manifestations: with fluctuating manifestations Qualified Code(s): G20.B2 - Parkinson's disease with dyskinesia, with fluctuations (8) Osteoporosis: Status: Chronic Qualifiers: Osteoporosis type: age-related Presence of current pathological fracture: with current pathological fracture Encounter type: initial encounter Qualified Code(s): M80.00XA - Age-related osteoporosis with current pathological fracture, unspecified site, initial encounter for fracture (9) Presence of IVC filter: Status: Acute Reason for Visit Reason for Visit: fall Brief History: Radha Martinez is a 79 year old female who presented to the emergency room via EMS after a fall while carrying breakfast. She has a history of frequent f alls and wears an alert necklace that allows her to call for help when needed. She sustained some skin tears to her left hand and elbow with bleeding today and when EMS arrived they also noted her oxygen levels were low. They placed her on oxygen by nasal cannula and brought her in to the ER for further evaluation. She had another fall approximately two weeks ago and has had back pain since jil t incident. CAT scan performed in the ER revealed a new fracture at T12?appearing newer than previous ones?and findings at the left lung base suggestive of early pneumonia. She also had evidence of multiple chronic left rib fractures with extensive chest wall deformity, similar to prior. . She continued to be hypoxic necessitating 2 L by nasal cannula. She was covered em pirically with Rocephin and azithromycin and thereafter transition to Augmentin at the time of discharge. Her Parkinson's disease has been getting progressively worse with increased issues with movement and occasional hallucinations. She needed pain management with acetaminophen, toradol and topical lidocaine patches. Her family was interested in exploring surgical or IR interventions to expedite healing of her T12 fracture. Consult was offered with Dr. Sam with spine surgery however they declined, instead wanted to be referred to Dr. Delacruz in [place] who has seen the patient previously. This was provided. Physical Exam Narrative: General: No acute distress, AO x3 HEENT: PERRLA, pupils bilaterally equal and reactive, pallors not present Chest: Normal vesicular breath sounds, no added sounds, equal good air entry bilaterally CVS: S1-S2 regular, no murmurs, no tachycardia, no gallops, no rubs Abdomen: Soft, nontender, no organomegaly, bowel sounds present Neuro: No focal deficits, no facial deformity, AO x3, power 5/5 in all limbs Discharge Data Studies Completed and Pending Completed Studies During Hospitalization Category Date Time Status CT lumbar spine wo con* [id number] Stat Cat Scan 03/15/25 11:36 Completed XR chest 1V portable [id number] Stat Exams 03/15/25 11:37 Completed XR elbow LT min 3V* [id number] Stat Exams 03/15/25 10:58 Completed XR hand LT min 3V* [id number] Stat Exams 03/15/25 10:58 [place] [id number] Routine Ultrasound 03/15/25 16:50 Completed Pending at discharge Category Date Time Status Blood Culture Stat Lab 03/15/25 13:20 Results Radiology Impressions Elbow X-Ray 03/15/25 10:58 IMPRESSION: No acute osseous abnormality. Hand X-Ray 03/15/25 10:58 IMPRESSION: No definite acute osseous abnormality, though examination limited by hand position. Lumbar Spine CT 03/15/25 11:36 IMPRESSION: 1. New mild compression deformity of T12 by approximately 20% without retropulsion. New since 02/18/2025. 2. Prior vertebroplasties with chronic fractures at L1 and L2. 3. Stable mild compression deformity of L4. 4. Multilevel areas of central and foraminal stenosis due to disc, facet and ligamentum flavum hypertrophy. Similar to the prior study of 02/18/2025. 5. Mild encroachment upon the thecal sac at L1 due to retropulsion of the vertebral body. No change. Chest X-Ray 03/15/25 11:37 IMPRESSION: New left basilar airspace disease concerning for pneumonia. Venous Duplex 03/15/25 16:50 IMPRESSION: No evidence of deep vein thrombosis. Laboratory Results WBC 7.15 10^3/uL (3.29-11.43) 03/18/25 04:31 RBC 3.70 10^6/uL (3.85-5.65) L 03/18/25 04:31 Hgb 11.70 g/dL (11.27-16.99) 03/18/25 04:31 Hct 35.4 % (36-47) L 03/18/25 04:31 MCV 95.7 fl (85-98) 03/18/25 04:31 MCH 31.6 pg (27-33) 03/18/25 04:31 MCHC 33.1 g/dL (30-55) 03/18/25 04:31 RDW 12.3 % (12.1-15.1) 03/18/25 04:31 Plt Count 197 10^3/cmm (157-399) 03/18/25 04:31 MPV 10.4 fL (7.4-10.4) 03/18/25 04:31 Neut % (Auto) 73.7 % 03/18/25 04:31 Lymph % (Auto) 12.0 % 03/18/25 04:31 [place] % (Auto) 10.8 % 03/18/25 04:31 Eos % (Auto) 2.8 % 03/18/25 04:31 Baso % (Auto) 0.3 % 03/18/25 04:31 Neut # (Auto) 5.27 10^3/uL (1.8-7.7) 03/18/25 04:31 Lymph # (Auto) 0.9 10^3/uL (0.8-4.8) 03/18/25 04:31 [place] # (Auto) 0.8 10^3/uL (0.2-0.9) 03/18/25 04:31 Eos # (Auto) 0.2 10^3/uL (0.0-0.8) 03/18/25 04:31 Baso # (Auto) 0.0 10^3/uL (0.0-0.1) 03/18/25 04:31 Nucleated RBC % (auto) 0 % 03/18/25 04:31 Nucleated RBCs # 0.0 /100WBC 03/18/25 04:31 Sodium 142 mmol/L (136-145) 03/18/25 04:31 Potassium 3.5 mmol/L (3.5-5.1) 03/18/25 04:31 Chloride 100 mmol/L (98-107) 03/18/25 04:31 Carbon Dioxide 35 mmol/L (22-29) H 03/18/25 04:31 Anion Gap 10.5 (5-19) 03/18/25 04:31 BUN 25 mg/dL (8-23) H 03/18/25 04:31 Creatinine 0.5 mg/dL (0.5-0.9) 03/18/25 04:31 GFR Calculation Not Reportable 03/18/25 04:31 Glucose 96 mg/dL (65-115) 03/18/25 04:31 POC Glucose 166 mg/dL (70-110) H 03/15/25 18:42 Calculated Osmolality 298 mOsm/kg (285-295) H 03/18/25 04:31 Lactic Acid 0.9 mmol/L (0.5-2.2) 03/15/25 12:11 Calcium 9.8 mg/dL (8.5-10.5) 03/18/25 04:31 Phosphorus 1.9 mg/dL (2.5-4.5) L 03/16/25 04:21 Magnesium 1.6 mg/dL (1.7-2.3) L 03/16/25 04:21 Total Bilirubin 0.7 mg/dL (0.15-1.2) 03/18/25 04:31 AST 13 U/L (0-32) 03/18/25 04:31 ALT < 5 U/L (0-33) 03/18/25 04:31 Alkaline Phosphatase 92 U/L (35-105) 03/18/25 04:31 NT-Pro-B Natriuret Pep 256 pg/mL (0-450) 03/15/25 12:11 Total Protein 5.8 g/dL (6.6-8.7) L 03/18/25 04:31 Albumin 3.4 g/dL (3.5-5.2) L 03/18/25 04:31 Globulin 2.4 g/dL (1.3-4.6) 03/18/25 04:31 25-OH Vitamin D Total 82 ng/mL (30-100) 03/16/25 04:21 Nasal MRSA (PCR) Not detected (Not Detecte) 03/15/25 06:20 Influenza A (PCR) Negative (Negative) 03/15/25 13:45 Influenza Type B (PCR) Negative (Negative) 03/15/25 13:45 RSV (PCR) Negative (Negative) 03/15/25 13:45 SARS-CoV-2 (PCR) Negative (Negative) 03/15/25 13:45 Vitals Last Vital Signs Temp 97.9 F 03/18/25 12:26 Pulse 97 03/18/25 12:26 Resp 17 03/18/25 12:26 BP 147/33 03/18/25 12:26 Pulse Ox 93 03/18/25 12:26 O2 Del Method Nasal Cannula 03/18/25 12:03 O2 Flow Rate 2 03/18/25 08:28 Discharge Plan Discharge Patient Disposition: Xfer SNF Condition: Stable Prescriptions: New aspirin 81 mg Tablet,Delayed Release (Dr/Ec) 81 mg PO DAILY 30 Days Qty: 30 0RF lidocaine 5 % Adhesive Patch,Medicated 1 patch topical [id number] 30 Days Qty: 30 0RF amoxicillin-pot clavulanate 875-125 mg tablet 1 tab PO BID 3 Days Qty: 6 0RF Continued metoprolol succinate 50 mg tablet extended release 24 hr 50 mg PO DAILY chlorthalidone 25 mg tablet 25 mg PO DAILY citalopram 20 mg tablet 20 mg PO DAILY potassium chloride [Klor-Con M20] 20 mEq tablet,ER particles/crystals 20 meq PO DAILY triamcinolone acetonide 0.025 % cream 1 applic TOPICAL BID benazepril 20 mg tablet 20 mg PO DAILY carbidopa-levodopa 25-100 mg tablet 2 tab PO TID Discharge Orders: Discharge Order (Routine); Ordered 03/18/25 Ordered By: Katarina Hudson Referrals: [facility] [Outside] Julianna Mary NP [Primary Care Provider, Unknown] - 03/26/25 11:30 am Mohan Delacruz [Occupational Therapist, Radiology: Neuroimaging] - 7-10 days Referral Note: t12 compression fracture post traumatic Discharge Diet: Usual diet Discharge Activity: As per PT/OT instructions Patient Instructions: Aspirin (By mouth), Lidocaine (On the skin) Discharge Attestations Time Spent in Discharge Care*: greater than 30 min Quality Metrics Clinical Quality Measures [ No reported AMI, CVA or VTE this stay] Coding Level of Care Code Acute Code for Chg Fwd Diagnoses Fall W19.XXXA Encounter type: initial encounter Compression fracture of T12 vertebra, initial encounter S22.080A Encounter type: initial encounter LLL pneumonia J18.9 Hypokalemia E87.6 Multiple skin tears T14.8XXA Primary hypertension I10 Hypertension type: primary hypertension Parkinson's disease with dyskinesia and fluctuating manifestations G20.B2 Dyskinesia presence: with dyskinesia Fluctuating manifestations: with fluctuating manifestations Age-related osteoporosis with current pathological fracture, initial encounter M80.00XA Osteoporosis type: age-related Presence of current pathological fracture: with current pathological fracture Encounter type: initial encounter Presence of IVC filter Z95.828
== END 2025-03-18 13:29 | disposition skilled nursing facility (03) | DRG 194 ==
LOC: ER 15:07 → ER IP 15:17 → MEDSURG 18:17
PROVIDERS: Admitting Provider Hospitalist; Emergency Provider Family Medicine; PCP Nurse Practitioner Family; Visit Provider Student in an Organized Health Care Education/Training Program
DX: J18.9 Pneumonia, unspecified organism (principal); S22.080A Wedge compression fracture of T11-T12 vertebra, initial encounter for closed fracture; W01.0XXA Fall on same level from slipping, tripping and stumbling without subsequent striking against object, initial encounter; E87.6 Hypokalemia; S60.512A Abrasion of left hand, initial encounter; S50.312A Abrasion of left elbow, initial encounter; I10 Essential (primary) hypertension; G20.B1 Parkinson's disease with dyskinesia, without mention of fluctuations; R09.02 Hypoxemia; K21.9 Gastro-esophageal reflux disease without esophagitis; K44.9 Diaphragmatic hernia without obstruction or gangrene; Z86.711 Personal history of pulmonary embolism; Z86.718 Personal history of other venous thrombosis and embolism; Z95.828 Presence of other vascular implants and grafts
CPT/HCPCS: 36415; 36416; 71045; 72131; 73080; 73130; 80048; 80053; 82306; 82962; 83605; 83735; 83880; 84100; 85025; 86403; 87040; 87449; 87637; 93005; 93970; 96365; 96372; 96375; 97116; 97162; 97167; 97530; 97535; 99285; J0456; J0696; J1652; J1885; J3480; J7050; J9999; Q0144